=== PATIENT | male | born 1965 | race Hispanic/Latino ===

== ENCOUNTER 2024-02-01 17:52 | Inpatient (IN) | payer BC ==
[~2024-02-01] VITALS: Ht 172.7 cm; Wt 88.0 kg
--- NOTE | 2024-02-01 18:28 | ERN ---
General Chief Complaint: FOOT INJURY/PAIN Stated Complaint: RT FOOT PAIN AND SWELLING Time Seen by MD: 17:56 Time Seen by Midlevel: 17:56 History of Present Illness Initial Comments 58-year-old male presents to the ED for evaluation of right foot pain onset 6 days ago. Patient reports swelling, redness, wound and pus, but denies any other associated symptoms at this time. Patient reports he was seen at [facility] day x6 days ago and was prescribed antibiotics, but states he has not been seeing any improvement. Reports that two months ago he tripped and hurt his toe but did not seek medical help. Denies any recent trauma. Denies fevers Allergies: Coded Allergies: No Known Allergies (Unverified Allergy, Unknown, 02/01/24) Past Medical History Past Medical History: Diabetes-Type II, Hypertension Past Surgical History: Other Surgical History Other: LT TESTICULAR REMOVAL ROS Dictation Constitutional: Negative for fever,chills, and weight loss Eyes: Negative for injury, pain,redness, and discharge ENT: Negative for injury,pain or swelling Cardiovascular: Negative for chest pain, palpitations, and edema Respiratory: Negative for shortness of breath, cough, and wheezing, Abdomen/GI: Negative for abdominal pain, nausea, vomiting, diarrhea, and constipation Back: Negative for injury and pain : Negative for injury, bleeding and discharge MS/Extremity: Positive for right foot pain,swelling, redness, laceration and pus Negative for injury and deformity Skin: Negative for rash, and discoloration Neuro: Negative for headache, weakness, numbness, tingling, and seizure Psych: Negative for suicide ideation, homicidal ideation, and hallucinations Physical Exam Physical Exam Dictation General: awake, alert, NAD Head/Face: Normocephalic, atraumatic Eyes: PERRL, EOMI, vision at baseline ENT: oral cavity clear, TMs clear, no signs of infection Neck: Trachea midline, supple, no nuchal rigidity Cardiovascular: RRR, normal S1/S2, No MRGs, no JVD Respiratory: CTAB, no respiratory distress, No rales or wheezes Abdomen: Soft, non-tender, non-distended, normal bowel sounds, no guarding or rebound. Skin: Warm, dry, normal turgor, no rash erythema noted to right foot, warmth to touch, small 1 cm in diameter diabetic ulcer to tip of 1th toe, scant purulence drainage MS/Extremity: Pulses equal, no cyanosis, neurovascular intact, FROM, right 1st toe deformity, swelling, right lower leg erythema, warmth to touch, cap refill less than 3 seconds Neuro: COAx4, GCS 15, strength 5/5, CN 2-12 intact, normal cerebellar exam, normal gait, Psych: Normal behavior, mood, and affect normal Results Laboratory and Microbiology Lab and Micro Result Laboratory Tests Test 02/01/24 18:32 02/01/24 18:33 Urine Color LIGHT-YELLOW (YELLOW) Urine Appearance CLEAR (CLEAR) Urine pH 6.5 (5.0-8.0) Urine Specific [place] 1.019 (1.001-1.031) Urine Protein NEGATIVE mg/dL (NEGATIVE) Urine Glucose (UA) 50 mg/dL (NEGATIVE) H Urine Ketones NEGATIVE mg/dL (NEGATIVE) Urine Occult Blood NEGATIVE (NEGATIVE) Urine Nitrate NEGATIVE (NEGATIVE) Urine Bilirubin NEGATIVE mg/dL (NEGATIVE) Urine Urobilinogen 3 mg/dL (0.2-1.0) H Urine Leukocyte Esterase NEGATIVE Juliano/uL Urine RBC 0-1 /HPF (0-1) Urine WBC 0-1 /HPF (0-1) Urine Bacteria None /HPF (None Seen) White Blood Count 8.3 K/uL (4.8-10.8) Red Blood Count 4.86 MIL/uL (4.50-6.20) Hemoglobin 15.7 g/dL (14.0-18.0) Hematocrit 45.6 % (42-54) Mean Corpuscular Volume 93.8 fL (79-99) Mean Corpuscular Hemoglobin 32.3 pg (27.0-33.0) Mean Corpuscular Hemoglobin Concent 34.4 g/dL (32.0-36.0) Red Cell Distribution Width 11.8 % (11.0-15.5) Platelet Count 282 K/uL (130-400) Mean Platelet Volume 9.5 fL (7.5-10.5) Immature Granulocyte % (Auto) 0.7 % (0-1) Neutrophils (%) (Auto) 71.4 % (40.0-77.0) Lymphocytes (%) (Auto) 16.1 % (21.0-51.0) L Monocytes (%) (Auto) 7.7 % (3.0-13.0) Eosinophils (%) (Auto) 3.3 % (0.0-8.0) Basophils (%) (Auto) 0.8 % (0.0-5.0) Neutrophils # (Auto) 5.9 K/uL (1.8-7.7) Lymphocytes # (Auto) 1.3 K/uL (1.0-4.8) Monocytes # (Auto) 0.6 K/uL (0.1-1.0) Eosinophils # (Auto) 0.27 K/uL (0.00-0.70) Basophils # (Auto) 0.07 K/uL (0.00-0.20) Absolute Immature Granulocyte (auto 0.06 K/uL (0-1) Nucleated Red Blood Cells 0.0 % (0.0-0.19) Sodium Level 139 mmol/L (136-145) Potassium Level 4.0 mmol/L (3.5-5.1) Chloride Level 100 mmol/L (101-111) L Carbon Dioxide Level 31 mmol/L (21-32) Blood Urea Nitrogen 19 mg/dL (7-18) H Creatinine 1.2 mg/dL (0.5-1.3) Glomerular Filtration Rate Calc 69 mL/min (>90) Random Glucose 166 mg/dL (70-105) H Lactic Acid Level 2.0 mmol/L (0.8-2.5) Total Calcium 9.7 mg/dL (8.5-10.1) Procalcitonin < 0.05 ng/mL (0.05-0.5) L REASON: swelling, cellulits ORDERING PHYSICIAN: ELIUD LOCK PROCEDURE: FT 3VW RT - FOOT COMP 3+VWS RT Exam Type: FOOT COMP 3+VWS RT Clinical Information: swelling, cellulits Comparison: None Findings and impression: Fracture of the distal phalanx proximal aspect with possible intra-articular extension, without displacement. No other abnormalities except for dorsal foot soft tissue swelling. Labs Reviewed?: Yes MDM MDM: 58-year-old male with a history of diabetes on metformin, hypertension presents to the ED for evaluation of right foot pain onset 6 days ago. Patient reports swelling, redness, wound and pus, but denies any other associated symptoms at this time. Patient reports he was seen at [facility] day x6 days ago and was prescribed antibiotics, but states he has not been seeing any improvement. Reports that two months ago he tripped and hurt his toe but did not seek medical help. Denies any recent trauma. Denies fever. CBC showed no leukocytosis, no anemia, chemistry showed mild hyperglycemia, mild hypochloremia, x-ray showed fracture of the distal phalanx proximal aspect with possible intra-articular extension. Due to patient already receiving antibiotics Keflex and Bactrim and not improving, worsening cellulitis patient will be admitted for further management and IV antibiotics. Differential diagnosis: Right foot pain, swelling, cellulitis Comorbidities: Diabetes, hypertension Tests considered and not ordered secondary to shared decision making include: none Previous outside records reviewed: none Risk of complication and/or morbidity or mortality of patient management: The patient meets criteria for admission. Need for emergency major/minor surgery: No There are no social concerns with this patient. I independently interpreted the tests I ordered (labs, urinalysis, etc.). I discussed the case with the hospitalist for admission. Leonela RUVALCABA who accepts admission I discussed the case with the following specialists: none. Historian: pateint. I independently interpreted imaging studies and EKGs that I ordered (US, CT, XR, EKG, etc.). External chart review: none. Medical management and examination interpretation discussions were had by me with other qualified healthcare professionals as indicated for the patient's care. ED Course Orders Procedure Category Date Status Time Cbc With Differential LAB 02/01/24 Complete 18:10 Blood Cult LUPE 02/01/24 In Process 18:10 Urinalysis Profile LAB 02/01/24 Complete 18:10 Zosyn 3.375gm+Ns 50ml PHA 02/01/24 Complete (Zosyn 3.375gm+Ns 18:10 Vancomycin 1g/250ml PHA 02/01/24 Complete Kit (Vancomycin 1g/2 18:30 0.9%Nacl 1000ml (Ns PHA 02/01/24 In Process 1000ml) 18:30 Procalcitonin LAB 02/01/24 Complete 18:10 Lactic Acid LAB 02/01/24 Complete 18:10 Basic Metabolic Panel LAB 02/01/24 Complete 18:10 Foot Comp 3+Vws Rt RAD 02/01/24 Resulted 18:10 Ondansetron 4mg Inj PHA 02/01/24 Complete (Zofran 4mg Inj) 20:00 Morphine 4mg Syg PHA 02/01/24 Complete (Morphine 4mg Syg) 20:00 Admit Orders ADM 02/01/24 Verified 20:32 Edm Admit Bridge Order ADM 02/01/24 Verified 20:32 Current Medications Medications (Trade) Dose Ordered Sig/Adria Route PRN Reason Start Time Stop Time Status Last Admin Dose Admin Morphine Sulfate (morPHINE 4MG SYG) 4 mg ONCE ONCE IVP 02/01/24 20:00 02/01/24 20:01 DC 02/01/24 20:21 Ondansetron HCl (zoFRAN 4MG INJ) 4 mg ONCE ONCE IVP 02/01/24 20:00 02/01/24 20:01 DC 02/01/24 20:21 Piperacillin Sod/ Tazobactam Sod 50 ml @ 200 mls/hr STAT STAT IVPB 02/01/24 18:10 02/01/24 18:24 DC 02/01/24 18:52 Sodium Chloride 2,640 ml @ 880 mls/hr ONCE ONCE IV 02/01/24 18:30 02/01/24 21:29 02/01/24 18:53 Vancomycin HCl 250 ml @ 125 mls/hr ONCE ONCE IV 02/01/24 18:30 02/01/24 20:29 DC 02/01/24 19:22 Vital Signs Date Time Temp Pulse Resp B/P (MAP) Pulse Ox O2 Delivery O2 Flow Rate FiO2 02/01/24 19:52 98.4 70 18 151/70 98 Room Air* 0 02/01/24 18:36 98.8 78 18 128/78 96 Room Air* 0 02/01/24 17:55 98.4 76 20 133/75 96 Room Air DX & DISP Disposition: Inpatient Decision to Admit Date: Feb 01, 2024 Decision to Admit Time: 20:35 Departure Impression: Primary Impression: Cellulitis of right foot Additional Impressions: Diabetic ulcer of toe of right foot, Toe fracture, right, Failure of outpatient treatment Condition: Stable I have reviewed, & agreed with my scribe's, documentation. (Entered by Aureliano Osorio, acting as a scribe for CLEVELAND Lock) I have reviewed the case, and I agree with, Diagnosis and Plan I personally scribed for ELIUD LOCK ([email or web address]) on 02/01/24 at 18:28. Electronically submitted by Aureliano Osorio ([email or web address]). ELIUD LOCK Feb 01, 2024 18:28
--- NOTE | 2024-02-01 18:47 | HMCIMG ---
Exam Type: FOOT COMP 3+VWS RT Clinical Information: swelling, cellulits Comparison: None Findings and impression: Fracture of the distal phalanx proximal aspect with possible intra-articular extension, without displacement. No other abnormalities except for dorsal foot soft tissue swelling.
[2024-02-01] MEDS: ZOSYN 3.375GM+NS 50ML 50 ML IVPB STA (18:52)
[2024-02-01] MEDS: [UNRECOGNIZED DRUG - OTHER] IV ONE (18:53)
[2024-02-01] MEDS: VANCOMYCIN 1G/250ML KIT 250 ML IV ONE (19:22)
[2024-02-01 19:25] LABS: CREATININE 1.2 mg/dL (0.5-1.3)
[2024-02-01 19:30] LABS: BASOPHILS # (AUTO) 0.07 K/uL (0.00-0.20); BASOPHILS % (AUTO) 0.8 % (0.0-5.0); EOSINOPHILS # (AUTO) 0.27 K/uL (0.00-0.70); EOSINOPHILS % (AUTO) 3.3 % (0.0-8.0); HEMATOCRIT 45.6 % (42-54); IMMATURE GRANULOCYTE ABSOLUTE 0.06 K/uL (0-1); LYMPHOCYTES # (AUTO) 1.3 K/uL (1.0-4.8); LYMPHOCYTES % (AUTO) 16.1 % (21.0-51.0); MEAN CORPUSCULAR HEMOGLOBIN 32.3 pg (27.0-33.0); MEAN CORPUSCULAR HGB CONC 34.4 g/dL (32.0-36.0); MEAN CORPUSCULAR VOLUME 93.8 fL (79-99); MONOCYTES # (AUTO) 0.6 K/uL (0.1-1.0); MONOCYTES % (AUTO) 7.7 % (3.0-13.0); NEUTROPHILS # (AUTO) 5.9 K/uL (1.8-7.7); NEUTROPHILS % (AUTO) 71.4 % (40.0-77.0); PLATELET COUNT (AUTO) 282 K/uL (130-400); RED BLOOD CELL COUNT(AUTO) 4.86 MIL/uL (4.50-6.20); RED CELL DISTRIBUTION WIDTH 11.8 % (11.0-15.5); WHITE BLOOD COUNT (AUTO) 8.3 K/uL (4.8-10.8)
[2024-02-01 19:30] LABS: APPEARANCE,URINE CLEAR (CLEAR); BILIRUBIN,URINE NEGATIVE (NEGATIVE); COLOR,URINE LIGHT-YELLOW (YELLOW); GLUCOSE, URINE (UA) 50 mg/dL (NEGATIVE); KETONES,URINE NEGATIVE (NEGATIVE); LEUKOCYTE ESTERASE ,URINE NEGATIVE Leu/uL (NEGATIVE); NITRATE,URINE NEGATIVE (NEGATIVE); OCCULT BLOOD,URINE NEGATIVE (NEGATIVE); PH,URINE 6.5 (5.0-8.0); PROTEIN,URINE NEGATIVE (NEGATIVE); UROBILINOGEN,URINE 3 mg/dL (0.2-1.0)
[2024-02-01 19:31] LABS: ADD UA MICROSCOPIC YES
[2024-02-01 19:39] LABS: MUCUS,URINE RARE LPF (None Seen); RBC,URINE 0-1 /HPF (0-1); WBC,URINE 0-1 /HPF (0-1)
[2024-02-01] MEDS: ondanSETRON 4MG INJ IVP ONE (20:21)
[2024-02-01] MEDS: morPHINE 4 MG SYG IVP ONE (20:21)
[2024-02-01] MEDS: VANCOMYCIN 1G/250ML KIT 250 ML IV SCH (21:00)
[2024-02-01] MEDS ORDERED: VANCOMYCIN PROTOCOL PER PHARMACY IV SCH (21:00)
[2024-02-01] MEDS: INSULIN humuLIN R 100 UNIT/ML 3ML SQ SCH (21:00)
[2024-02-01] MEDS ORDERED: TEMAZepam 15 MG CAPSULE PO PRN (21:00)
[2024-02-01] MEDS ORDERED: acetaMINOPHEN 325 MG TAB PO PRN (21:00)
[2024-02-01] MEDS ORDERED: hydrALAZine 20MG/ML VIAL IV PRN (21:00)
[2024-02-01] MEDS ORDERED: acetaMINOPHEN 650 MG SUPPOSITORY RC PRN (21:00)
[2024-02-01] MEDS ORDERED: LACTULOSE 20 GM/30 ML UDCUP PO PRN (21:00)
[2024-02-01] MEDS ORDERED: ondanSETRON 4MG INJ IVP PRN (21:00)
[2024-02-01] MEDS ORDERED: HYDROcodone/APAP 5/325 1 TAB TABLET PO PRN (21:00)
--- NOTE | 2024-02-01 21:11 | HP ---
[facility] HISTORY AND PHYSICAL Date of Service: Feb 01, 2024 Time of Service: 21:11 PCP: Dr. Karan Valencia Attending/supervising physicians: Dr. Vail and Dr. Scott Cross HISTORY OF PRESENT ILLNESS: Mr. Callahan is a 58-year-old male who presented to [facility] ED for evaluation of right foot pain onset 6 days ago. Patient reported swelling, redness, wound and pus, but denies any other associated symptoms at this time. Patient reported he was seen at [facility] day x6 days ago and was prescribed antibiotics, but states he has not been seeing any improvement. The patient reported that two months ago he tripped and hurt his toe but did not seek medical help. Denies any recent trauma, fevers, any other problem or concern. Right foot x-ray: Fracture of the distal phalanx proximal aspect with possible intra-articular extension, without displacement. No other abnormalities except for dorsal foot soft tissue swelling. ED provider request patient be admitted with the diagnosis of cellulitis to right foot with failed of outpatient treatment, diabetes ulcers of right toe, right toe fracture. The patient was seen by me in room number ED nine. Patient appeared comfortable in no distress. I informed patient of labs, diagnostics, plan of care. Patient verbalized understanding and is in agreement with the plan. Plan and assessment are listed below. REVIEW OF SYSTEMS 12-point ROS reviewed with the patient. All pertinent positives mentioned above. Otherwise negative, non-pertinent, or noncontributory. PAST MEDICAL HISTORY: Diabetes mellitus type and hypertension PAST SURGICAL HISTORY: Left testicle removal PAST SOCIAL HISTORY: Denied: Alcohol, EtOH, illicit drug use. FAMILY HISTORY: Noncontributory Coded Allergies: No Known Allergies (Unverified Allergy, Unknown, 02/01/24) PHYSICAL EXAM GENERAL APPEARANCE: The patient is awake, alert, and oriented, in no acute cardiopulmonary distress. NEUROLOGICAL: Cranial nerves II-XII grossly intact. Motor is 5/5 in bilateral upper and lower extremities proximal to distal. No sensory deficits. HEENT: Face is symmetric. Pupils are equal and reactive. Extraocular movements are intact. NECK: Supple. No JVD. No thyromegaly. No submental, submandibular, pre- /postauricular, occipital or supraclavicular lymphadenopathy. CHEST: Normal chest expansion. No Telemetry. LUNGS: Absence of any rales, rhonchi or any wheezing. CARDIOVASCULAR: Regular. S1 and S2 normal. No appreciable rubs, murmurs or gallops. ABDOMEN: Soft, nontender, and nondistended. There is no rebound, voluntary guarding, or rigidity. : Deferred. No Obrien. EXTREMITIES: Non-edematous and not cyanotic. No clubbing. Good capillary refill. Right toe has small amount of yellowish discharge. SKIN: No skin breakdown. Lower leg and foot edema and erythema. Vital Sign (Last 24 Hours) 02/01/24 19:52 Temp 98.4 Pulse 70 Resp 18 B/P (MAP) 151/70 Pulse Ox 98 O2 Delivery Room Air* O2 Flow Rate 0 FiO2 21 LABS: Laboratory: Test 02/01/24 18:33 02/01/24 18:32 Range/Units White Blood Count 8.3 4.8-10.8 K/uL Red Blood Count 4.86 4.50-6.20 MIL/uL Hemoglobin 15.7 14.0-18.0 g/dL Hematocrit 45.6 42-54 % Mean Corpuscular Volume 93.8 79-99 fL Mean Corpuscular Hemoglobin 32.3 27.0-33.0 pg Mean Corpuscular Hemoglobin Concent 34.4 32.0-36.0 g/dL Red Cell Distribution Width 11.8 11.0-15.5 % Platelet Count 282 130-400 K/uL Mean Platelet Volume 9.5 7.5-10.5 fL Immature Granulocyte % (Auto) 0.7 0-1 % Neutrophils (%) (Auto) 71.4 40.0-77.0 % Lymphocytes (%) (Auto) 16.1 L 21.0-51.0 % Monocytes (%) (Auto) 7.7 3.0-13.0 % Eosinophils (%) (Auto) 3.3 0.0-8.0 % Basophils (%) (Auto) 0.8 0.0-5.0 % Neutrophils # (Auto) 5.9 1.8-7.7 K/uL Lymphocytes # (Auto) 1.3 1.0-4.8 K/uL Monocytes # (Auto) 0.6 0.1-1.0 K/uL Eosinophils # (Auto) 0.27 0.00-0.70 K/uL Basophils # (Auto) 0.07 0.00-0.20 K/uL Absolute Immature Granulocyte (auto 0.06 0-1 K/uL Nucleated Red Blood Cells 0.0 0.0-0.19 % Sodium Level 139 136-145 mmol/L Potassium Level 4.0 3.5-5.1 mmol/L Chloride Level 100 L 101-111 mmol/L Carbon Dioxide Level 31 21-32 mmol/L Blood Urea Nitrogen 19 H 7-18 mg/dL Creatinine 1.2 0.5-1.3 mg/dL Glomerular Filtration Rate Calc 69 >90 mL/min Random Glucose 166 H 70-105 mg/dL Lactic Acid Level 2.0 0.8-2.5 mmol/L Total Calcium 9.7 8.5-10.1 mg/dL Procalcitonin < 0.05 L 0.05-0.5 ng/mL Urine Color LIGHT-YELLOW YELLOW Urine Appearance CLEAR CLEAR Urine pH 6.5 5.0-8.0 Urine Specific [place] 1.019 1.001-1.031 Urine Protein NEGATIVE NEGATIVE mg/dL Urine Glucose (UA) 50 H NEGATIVE mg/dL Urine Ketones NEGATIVE NEGATIVE mg/dL Urine Occult Blood NEGATIVE NEGATIVE Urine Nitrate NEGATIVE NEGATIVE Urine Bilirubin NEGATIVE NEGATIVE mg/dL Urine Urobilinogen 3 H 0.2-1.0 mg/dL Urine Leukocyte Esterase NEGATIVE NEGATIVE Juliano/uL Urine RBC 0-1 0-1 /HPF Urine WBC 0-1 0-1 /HPF Urine Bacteria None None Seen /HPF Current Medications Medications (Trade) Dose Ordered Sig/Adria Route PRN Reason Start Time Stop Time Status Last Admin Dose Admin Acetaminophen (TYLenol 325MG TAB) 650 mg Q6H PRN PO FEVER/MILD PAIN LEVEL 1-3 02/01/24 21:00 03/02/24 20:59 Acetaminophen (TYLenol 650MG SUPPOSITORY) 650 mg Q6H PRN RC FEVER / MILD PAIN 1-3 IF NPO 02/01/24 21:00 03/02/24 20:59 Acetaminophen/ Hydrocodone Bitart (NORco 5/325MG) 1 tab Q6H PRN PO MILD PAIN (1-3) 02/01/24 21:00 02/06/24 20:59 Cefepime HCl (MAXipime 1 GM vial) 1 gm Q8H IVPB 02/02/24 03:00 02/12/24 02:59 Docusate Sodium (COLace 100MG CAP) 100 mg BID PRN PO c 02/01/24 21:00 03/02/24 20:59 Enoxaparin Sodium (Lovenox) 40 mg DAILY SQ 02/02/24 09:00 03/03/24 08:59 Hydralazine HCl (APRESOLine 20MG INJ) 10 mg Q2H PRN IV SBP GREATER THAN 160 02/01/24 21:00 03/02/24 20:59 Insulin Human Regular (humuLIN R 100 UNIT/ML 3ML) INSULIN SLIDING SCAL... ACHS SQ 02/01/24 21:00 03/02/24 20:59 Lactulose (Constulose 20gm/ 30ml Udcup) 20 gm Q6H PRN PO CONSTIPATION 02/01/24 21:00 03/02/24 20:59 Ondansetron HCl (zoFRAN 4MG INJ) 4 mg Q6H PRN IVP NAUSEA/VOMITING 02/01/24 21:00 03/02/24 20:59 Piperacillin Sod/ Tazobactam Sod 50 ml @ 200 mls/hr STAT STAT IVPB 02/01/24 18:10 02/01/24 18:24 DC 02/01/24 18:52 200 MLS/HR Temazepam (restORIL 15 MG CAP) 15 mg HS PRN PO INSOMNIA/SLEEP 02/01/24 21:00 03/02/24 20:59 Vancomycin HCl 250 ml @ 125 mls/hr Q12H IV 02/01/24 21:00 02/11/24 20:59 Vancomycin HCl (Vancomycin Protocol) 1 each AD IV 02/01/24 21:00 02/15/24 20:59 DIAGNOSTICS / RADIOLOGY: [ ] ASSESSMENT: Cellulitis of right foot and right lower extremity, with failed outpatient antibiotic therapy, POA Right toe decubitus ulcer/cellulitis, POA Fracture of the distal phalanx proximal aspect with possible intra-articular extension Acute dehydration, POA Acute kidney injury, GFR 69 Diabetes mellitus with hyperglycemia Uncontrolled hypertension Chronic problem list: Diabetes mellitus type 2, hypertension, left testicular removal PLAN: Admit patient to surgical floor. P.r.n. for: Pain management, nausea, vomiting, constipation, hypertension Collect anaerobic and aerobic cultures from right toe. Start vancomycin IV and cefepime IV. Vancomycin IV per pharmacy protocol. Monitor for fevers. Follow WBCs and cultures. Antibiotic therapy tailored to culture results. Deescalate antibiotics once appropriate. Monitor renal and liver function. Monitor electrolytes and treat accordingly. DVT and GI prophylaxis. Reconciled patient's home medication once available. A.m. labs: CBC, BMP, Mag, phos, TSH, A1c ADVANCED CARE PLANNING 1. Which of the following were discussed? Hospice Care - No Therapeutic options - No Advance Directives - No Other discussions - 2. Discussed with who? Patient 3. Voluntary nature of this service was explained to the patient? Yes 4. Amount of time spent - ____ more than 35 minutes ___ 5. Reviewed by Physician? (if this service was performed by NPP) Yes Patient seen and examined by me. Agree with note by ERP SPECIALIST SEE ADDITIONAL ORDERS PER CHART DISCUSSED WITH NURSING STAFF KESHAWN GARRIDO AGRICULTURAL ENGINEERING TECHNICIAN Feb 01, 2024 21:11
--- NOTE | 2024-02-01 22:56 | NUR ---
THOMAS SRINIVASAN PERFORMANCE MAKEUP ARTIST AT BEDSIDE TO EVALUATE PATIENT
--- NOTE | 2024-02-01 22:57 | NUR ---
REPORT GIVEN TO DEMETRIO CURRY
[2024-02-01 23:15] VITALS: BP 153/70; PULSE 63; RESP 16; TEMP 98.1
[2024-02-01 23:50] VITALS: O2SAT 96
[2024-02-01] MEDS ORDERED: OMEP20CA12 PO (23:53)
[2024-02-01] MEDS ORDERED: SITA25TA5 PO (23:53)
[2024-02-01] MEDS ORDERED: HYDR12.54 PO (23:53)
[2024-02-01] MEDS ORDERED: METF-445 PO (23:53)
[2024-02-01] MEDS ORDERED: LISI40TA9 PO (23:53)
[2024-02-02] VITALS (9 sets, daily range): BP systolic 110–167; BP diastolic 72–86; PULSE 51–71; RESP 16–18; TEMP 98.1–98.6; O2SAT 96–97
--- NOTE | 2024-02-02 | NUR ---
WOUND CULTURES COLLECTED AND SENT TO LAB AT THIS TIME. Addendum: 02/02/24 at 0045 by DEMETRIO PRUITT RN RN Amended: Links added.
[2024-02-02] MEDS: ceFEPime HCL 1 GM VIAL IVPB SCH (02:50)
[2024-02-02 04:52] LABS: BASOPHILS # (AUTO) 0.05 K/uL (0.00-0.20); BASOPHILS % (AUTO) 0.7 % (0.0-5.0); EOSINOPHILS # (AUTO) 0.26 K/uL (0.00-0.70); EOSINOPHILS % (AUTO) 3.9 % (0.0-8.0); HEMATOCRIT 37.8 % (42-54); IMMATURE GRANULOCYTE ABSOLUTE 0.04 K/uL (0-1); LYMPHOCYTES # (AUTO) 1.5 K/uL (1.0-4.8); LYMPHOCYTES % (AUTO) 21.8 % (21.0-51.0); MEAN CORPUSCULAR HEMOGLOBIN 32.2 pg (27.0-33.0); MEAN CORPUSCULAR HGB CONC 34.7 g/dL (32.0-36.0); MEAN CORPUSCULAR VOLUME 92.9 fL (79-99); MONOCYTES # (AUTO) 0.6 K/uL (0.1-1.0); MONOCYTES % (AUTO) 8.8 % (3.0-13.0); NEUTROPHILS # (AUTO) 4.3 K/uL (1.8-7.7); NEUTROPHILS % (AUTO) 64.2 % (40.0-77.0); PLATELET COUNT (AUTO) 240 K/uL (130-400); RED BLOOD CELL COUNT(AUTO) 4.07 MIL/uL (4.50-6.20); RED CELL DISTRIBUTION WIDTH 11.7 % (11.0-15.5); WHITE BLOOD COUNT (AUTO) 6.7 K/uL (4.8-10.8)
[2024-02-02 05:21] LABS: CREATININE 0.9 mg/dL (0.5-1.3); MAGNESIUM 1.7 mg/dL (1.80-2.40); PHOSPHORUS 3.1 mg/dL (2.5-4.9); POTASSIUM 3.6 mmol/L (3.5-5.1); THYROID STIMULATING HORMONE 7.5 uIU/mL (0.36-3.74)
[2024-02-02] MEDS: ENOXAPARIN SODIUM 40 MG/0.4 ML SYRINGE SQ SCH (08:11)
--- NOTE | 2024-02-02 10:14 | CONS ---
HISTORY OF PRESENT ILLNESS: The patient is a very pleasant 58-year-old diabetic, Latin-Polish male who is followed up for a fracture to his right great toe. He states he injured his foot approximately 2 months ago, did not seek attention at that time. Apparently last week, he was at [facility], given outpatient antibiotics and his condition did not improve. He has had x-rays that have showed a fracture with intraarticular involvement to the base of the distal phalanx of the right great toe. He is without any complaints of pain. He is remaining afebrile, blood pressure 110/80. He has a white count of 6.7, H and H 13.1 and 37.8, platelets 240. Blood glucose 143. PAST MEDICAL HISTORY: Diabetes, hypertension, peripheral vascular disease, peripheral neuropathy. PRIMARY CARE PHYSICIAN: Dr. Valencia from [facility]. PAST SURGICAL HISTORY: Left testicle removal. SOCIAL HISTORY: Does not smoke, drink or use any drugs. FAMILY HISTORY: Unknown. ALLERGIES: No known drug allergies. REVIEW OF SYSTEMS: CONSTITUTIONAL: No chills, no fevers, no night sweats, no nausea, vomiting, no diarrhea. HEENT: No problems with eyes, ears, nose or throat. CARDIOVASCULAR: Having no current chest pain. Suspected peripheral vascular disease. GENITOURINARY: No dysuria. GASTROINTESTINAL: No dysphagia. ENDOCRINE: Diabetes. PSYCHIATRIC: Denied any depression. MUSCULOSKELETAL: He has bunions and hammertoe deformities. INTEGUMENT: He has onychomycosis, onychogryphosis and now cellulitis of the right great toe and ulceration to the plantar aspect of the right great toe, ingrown toenail to the right great toe along the medial border. PHYSICAL EXAMINATION: Today palpable anterior tibial pulses, nonpalpable posterior tibial pulses feet bilaterally. DIAGNOSTIC STUDIES: X-rays show fracture of the distal phalanx base intraarticular involvement to the right great toe, calcification of the anterior tibial and posterior tibial arteries noted radiographically. Elongated thickened, brittle, gryphotic toenails x 10 with subungual debris ingrown toenail, medial border of the right great toe, ulceration of plantar aspect of the right great toe, predebridement 8 x 5 x 1 mm and postdebridement 15 x 10 x 4 mm. ASSESSMENT: Diabetes, peripheral vascular disease, peripheral neuropathy, onychomycosis, onychogryphosis, fracture of right great toe with intraarticular involvement of the distal phalanx, infected ulcer to the plantar aspect of the right great toe and infected ingrown toenail to the right hallux along the medial border. PLAN: With the patient's consent signed, I blocked the right first toe with 3 mL of 1% lidocaine plain. I avulsed the ingrown toenail, medial border by the Betadine dressing. I then, with the patient's consent, debrided the infected ulcer to the plantar aspect of the right great toe interphalangeal joint area. I debrided slough, fibrin, necrotic fibrin, dysvascular-appearing skin, and subcutaneous tissues down to including level of the subcutaneous tissue in an area that measured postdebridement 10 x 15 x 4 mm for a total area of sharp excisional debridement of 1.5 cm2. Hemostasis with Lumicain, dressed with Betadine dressings and Hydrofera Blue. I will order postop shoe for the patient to ambulate with. He tolerated the debridement well and had no pain. Cultures were taken of the wounds. The patient is currently receiving IV cefepime and IV vancomycin. We will order arterial Doppler studies to assess his healing potential. We will order an MRI to evaluate the patient with possibility of osteomyelitis. Continue with the vancomycin in the IV. Await the results of the MRI, await the results of the arterial Doppler studies, await the results of his intraoperative cultures and sensitivities. I then debrided his toenails today extensively reducing the length and girth to pink, healthy tissue with a nail clipper and dermal curette x 10 without incidence. We will continue to follow the patient closely while in-house. TID: [id number] RECEIPT: [id number]
[2024-02-02] MEDS ORDERED: PoTASSium chloRIDE 20MEQ/100ML 100 ML IV PRN (11:00)
[2024-02-02] MEDS ORDERED: PoTASSium chl 10% ELIXIR 20MEQ 20 MEQ/15 ML UDCUP PO PRN (11:00)
[2024-02-02] MEDS: PoTASSium chloRIDE 20MEQ ER 20 MEQ ERTAB PO PRN (11:33)
[2024-02-02] MEDS: MAGNESIUM 2GM PREMIX 50ML 50 ML IV PRN (13:29)
--- NOTE | 2024-02-02 13:39 | HMCIMG ---
Exam Type: MR FOOT RIGHT WO Clinical Information: RULE OUT OSTEOMYELITIS Comparison: None Technique: Multiecho multiplanar sequences are done without contrast administration. FINDINGS: There is high signal intensity of the marrow of the distal phalanx of the first of consistent with osteomyelitis. No other areas of marrow edema are seen. There are no fractures. There are no areas of bone destruction elsewhere. Soft tissue evaluation demonstrates increased fluid consistent with cellulitis or swelling. No fluid collections are noted to suggest abscess formation. IMPRESSION: Findings consistent with osteomyelitis of the distal phalanx of the first toe.
[2024-02-02] MEDS: LISINOPRIL 40 MG TABLET PO SCH (13:51)
--- NOTE | 2024-02-02 13:53 | PN ---
[facility] PROGRESS NOTE Date of Service: Feb 02, 2024 Time of Service: 13:49 SUBJECTIVE: [ Edvin Callahan is a 58-year-old male who approximately two months ago tripped and traumatizes right great toe. He did not seek medical attention at the time. Over the past week he noticed increased redness and some pus coming out of his right great toenail and so he sought medical attention here [place] [facility] [place]. He is a diabetic who does not know what his blood sugars are A1c usually run. The nurse mentioned that his last sugar checked was [address] Kaiser the orthopedic coder has already been by and evaluated the patient and dressed his foot an MRI has been ordered and done. REVIEW OF SYSTEMS 12-point ROS reviewed with the patient. All pertinent positives mentioned above. Otherwise negative, non-pertinent, or noncontributory. PHYSICAL EXAM GENERAL APPEARANCE: The patient is awake, alert, and oriented, in no acute cardiopulmonary distress. NEUROLOGICAL: Cranial nerves II-XII grossly intact. Motor is 5/5 in bilateral upper and lower extremities proximal to distal. No sensory deficits. HEENT: Face is symmetric. Pupils are equal and reactive. Extraocular movements are intact. NECK: Supple. No JVD. No thyromegaly. No submental, submandibular, pre- /postauricular, occipital or supraclavicular lymphadenopathy. CHEST: Normal chest expansion. No Telemetry. LUNGS: Absence of any rales, rhonchi or any wheezing. CARDIOVASCULAR: Regular. S1 and S2 normal. No appreciable rubs, murmurs or gallops. ABDOMEN: Soft, nontender, and nondistended. There is no rebound, voluntary guarding, or rigidity. : Deferred. No Obrien. EXTREMITIES: Non-edematous and not cyanotic. No clubbing. Good capillary refill. Right toe and foot is wrapped in both Vaseline gauze dressing and then an external dry Mainor bandage. SKIN: No skin breakdown. Lower leg and foot edema and erythema. Vital Signs (last 8hr) Date Time Temp Pulse Resp B/P (MAP) Pulse Ox O2 Delivery O2 Flow Rate FiO2 02/02/24 08:47 110/80 LABS: Laboratory: Test 02/02/24 12:16 02/02/24 04:23 02/01/24 18:33 11/22/24 18:32 Range/Units Whole Blood Glucose 225 #H 70-110 MG/DL White Blood Count 6.7 4.8-10.8 K/uL Red Blood Count 4.07 L 4.50-6.20 MIL/uL Hemoglobin 13.1 L 14.0-18.0 g/dL Hematocrit 37.8 L 42-54 % Mean Corpuscular Volume 92.9 79-99 fL Mean Corpuscular Hemoglobin 32.2 27.0-33.0 pg Mean Corpuscular Hemoglobin Concent 34.7 32.0-36.0 g/dL Red Cell Distribution Width 11.7 11.0-15.5 % Platelet Count 240 130-400 K/uL Mean Platelet Volume 9.8 7.5-10.5 fL Immature Granulocyte % (Auto) 0.6 0-1 % Neutrophils (%) (Auto) 64.2 40.0-77.0 % Lymphocytes (%) (Auto) 21.8 21.0-51.0 % Monocytes (%) (Auto) 8.8 3.0-13.0 % Eosinophils (%) (Auto) 3.9 0.0-8.0 % Basophils (%) (Auto) 0.7 0.0-5.0 % Neutrophils # (Auto) 4.3 1.8-7.7 K/uL Lymphocytes # (Auto) 1.5 1.0-4.8 K/uL Monocytes # (Auto) 0.6 0.1-1.0 K/uL Eosinophils # (Auto) 0.26 0.00-0.70 K/uL Basophils # (Auto) 0.05 0.00-0.20 K/uL Absolute Immature Granulocyte (auto 0.04 0-1 K/uL Nucleated Red Blood Cells 0.0 0.0-0.19 % Sodium Level 138 136-145 mmol/L Potassium Level 3.6 3.5-5.1 mmol/L Chloride Level 104 101-111 mmol/L Carbon Dioxide Level 27 21-32 mmol/L Blood Urea Nitrogen 18 7-18 mg/dL Creatinine 0.9 0.5-1.3 mg/dL Glomerular Filtration Rate Calc 98 >90 mL/min Random Glucose 149 H 70-105 mg/dL Total Calcium 8.5 8.5-10.1 mg/dL Phosphorus Level 3.1 2.5-4.9 mg/dL Magnesium Level 1.70 L 1.80-2.40 mg/dL Thyroid Stimulating Hormone (TSH) 7.50 H 0.36-3.74 uIU/mL Lactic Acid Level 2.0 0.8-2.5 mmol/L Procalcitonin < 0.05 L 0.05-0.5 ng/mL Urine Color LIGHT-YELLOW YELLOW Urine Appearance CLEAR CLEAR Urine pH 6.5 5.0-8.0 Urine Specific [place] 1.019 1.001-1.031 Urine Protein NEGATIVE NEGATIVE mg/dL Urine Glucose (UA) 50 H NEGATIVE mg/dL Urine Ketones NEGATIVE NEGATIVE mg/dL Urine Occult Blood NEGATIVE NEGATIVE Urine Nitrate NEGATIVE NEGATIVE Urine Bilirubin NEGATIVE NEGATIVE mg/dL Urine Urobilinogen 3 H 0.2-1.0 mg/dL Urine Leukocyte Esterase NEGATIVE NEGATIVE Juliano/uL Urine RBC 0-1 0-1 /HPF Urine WBC 0-1 0-1 /HPF Urine Bacteria None None Seen /HPF Current Medications Medications (Trade) Dose Ordered Sig/Adria Route PRN Reason Start Time Stop Time Status Last Admin Dose Admin Acetaminophen (TYLenol 325MG TAB) 650 mg Q6H PRN PO FEVER/MILD PAIN LEVEL 1-3 02/01/24 21:00 03/02/24 20:59 Acetaminophen (TYLenol 650MG SUPPOSITORY) 650 mg Q6H PRN RC FEVER / MILD PAIN 1-3 IF NPO 02/01/24 21:00 03/02/24 20:59 Acetaminophen/ Hydrocodone Bitart (NORco 5/325MG) 1 tab Q6H PRN PO MILD PAIN (1-3) 02/01/24 21:00 02/06/24 20:59 Cefepime HCl (MAXipime 1 GM vial) 1 gm Q8H IVPB 02/02/24 03:00 02/12/24 02:59 02/02/24 11:32 1 GM Docusate Sodium (COLace 100MG CAP) 100 mg BID PRN PO c 02/01/24 21:00 03/02/24 20:59 Enoxaparin Sodium (Lovenox) 40 mg DAILY SQ 02/02/24 09:00 03/03/24 08:59 Hydralazine HCl (APRESOLine 20MG INJ) 10 mg Q2H PRN IV SBP GREATER THAN 160 02/01/24 21:00 03/02/24 20:59 Hydrochlorothiazide (hydroCHLOROthiazide 25MG) 12.5 mg DAILY PO 02/03/24 09:00 03/04/24 08:59 Insulin Human Regular (humuLIN R 100 UNIT/ML 3ML) INSULIN SLIDING SCAL... ACHS SQ 02/01/24 21:00 03/02/24 20:59 02/02/24 13:34 6 UNIT Lactulose (Constulose 20gm/ 30ml Udcup) 20 gm Q6H PRN PO CONSTIPATION 02/01/24 21:00 03/02/24 20:59 Linagliptin (TradJENTA) 5 mg DAILY PO 02/03/24 09:00 03/04/24 08:59 Lisinopril (Prinivil 40mg) 40 mg DAILY PO 02/02/24 14:00 03/03/24 13:59 Magnesium Sulfate 50 ml @ 0 mls/hr PROTOCOL PRN IV MAGNESIUM PROTOCOL 02/02/24 11:00 03/03/24 10:59 02/02/24 13:29 25 MLS/HR Miscellaneous Medication (Omeprazole ) 20 mg DAILY PO 02/03/24 09:00 03/04/24 08:59 UNV Ondansetron HCl (zoFRAN 4MG INJ) 4 mg Q6H PRN IVP NAUSEA/VOMITING 02/01/24 21:00 03/02/24 20:59 Piperacillin Sod/ Tazobactam Sod 50 ml @ 200 mls/hr STAT STAT IVPB 02/01/24 18:10 02/01/24 18:24 DC 02/01/24 18:52 200 MLS/HR Potassium Chloride 100 ml @ 100 mls/hr AD PRN IV POTASSIUM PROTOCOL 02/02/24 11:00 03/03/24 10:59 Potassium Chloride (K-Dur/Klor-Con 20meq) 20 meq AD PRN PO POTASSIUM PROTOCOL 02/02/24 11:00 03/03/24 10:59 02/02/24 13:29 20 MEQ Potassium Chloride (KCl 10% Elixir 20meq/15ml) 20 meq AD PRN PO POTASSIUM PROTOCOL 02/02/24 11:00 03/03/24 10:59 Temazepam (restORIL 15 MG CAP) 15 mg HS PRN PO INSOMNIA/SLEEP 02/01/24 21:00 03/02/24 20:59 Vancomycin HCl 250 ml @ 125 mls/hr Q12H IV 02/01/24 21:00 02/11/24 20:59 02/02/24 08:46 125 MLS/HR Vancomycin HCl (Vancomycin Protocol) 1 each AD IV 02/01/24 21:00 02/15/24 20:59 DIAGNOSTICS / RADIOLOGY: [ ] ASSESSMENT: Cellulitis of right foot and right lower extremity, with failed outpatient antibiotic therapy, POA Right toe diabetic foot ulcer/cellulitis, POA Fracture of the distal phalanx proximal aspect with possible intra-articular extension Acute dehydration, POA Acute kidney injury, GFR 69 Diabetes mellitus with hyperglycemia Uncontrolled hypertension Chronic problem list: Diabetes mellitus type 2, hypertension, left testicular removal PLAN: Admit patient to surgical floor. P.r.n. for: Pain management, nausea, vomiting, constipation, hypertension Collect anaerobic and aerobic cultures from right toe. Start vancomycin IV and cefepime IV. Vancomycin IV per pharmacy protocol. Deescalate antibiotics once appropriate. Monitor renal and liver function. Monitor electrolytes and treat accordingly. DVT and GI prophylaxis. Reconciled patient's home medication once available. A.m. labs: CBC, BMP, mg in am. checking a1c in am as well. SANTIAGO MATOS MD Feb 02, 2024 13:53
--- NOTE | 2024-02-02 17:00 | NUR ---
MET W PATIENT FOR DC PLANNING. PLT IS INDEPENDENT, EMPLOYED, DRIVES, NO DME OR SERVICES, HAS GLUCOMETER, HAS HAD DIABETES FOR MANY YEARS, FIRST TIME WITH DIABETIC FOOT WOUND. PATIENT TEACHING DONE RE DIABETIC FOOT ULCERS/ OSTEO/ STANDARD PLAN OF CARE FOR OSTEO. PENDING RESULTS FOR MRI. PLAN MAY BE HOME WITH OUTPATIENT ABX AND WOUND CARE BY SELF OR WOUND HEALING CENTER CM WILL ANTICIPATE FURTHER DC ORDERS FOR THIS PATIENT
--- NOTE | 2024-02-02 20:53 | HMCIMG ---
US ARTERIAL BILAT LOW EXT DUPL HISTORY: PVD TECHNIQUE: Real-time arterial doppler ultrasound of the lower extremity was performed using B mode, color flow and spectral analysis. FINDINGS: RIGHT: Abnormal monophasic waveform seen in the posterior tibial and anterior tibial arteries. Occluded dorsalis pedis artery. The remaining arteries demonstrate biphasic and triphasic waveforms. LEFT: Abnormal monophasic waveform seen in the anterior tibial and dorsalis pedis arteries suggesting proximal flow-limiting stenosis. The remaining arteries demonstrate normal biphasic and triphasic waveforms. IMPRESSION: RIGHT: Abnormal monophasic waveform seen in the posterior tibial and anterior tibial arteries. Occluded dorsalis pedis artery. The remaining arteries demonstrate biphasic and triphasic waveforms. LEFT: Abnormal monophasic waveform seen in the anterior tibial and dorsalis pedis arteries suggesting proximal flow-limiting stenosis. The remaining arteries demonstrate normal biphasic and triphasic waveforms.
[2024-02-03 04:00] VITALS: BP 131/71; PULSE 58; RESP 16; TEMP 98.5
[2024-02-03 04:24] LABS: HEMATOCRIT 39.1 % (42-54); MEAN CORPUSCULAR HEMOGLOBIN 32.6 pg (27.0-33.0); MEAN CORPUSCULAR VOLUME 93.1 fL (79-99); RED BLOOD CELL COUNT(AUTO) 4.2 MIL/uL (4.50-6.20); RED CELL DISTRIBUTION WIDTH 11.5 % (11.0-15.5)
[2024-02-03 04:43] LABS: ALBUMIN 3.3 g/dL (3.5-5.0); BILIRUBIN,TOTAL 0.6 mg/dL (0.2-1.0); CREATININE 0.9 mg/dL (0.5-1.3); POTASSIUM 3.9 mmol/L (3.5-5.1); TOTAL PROTEIN, SERUM 6.9 g/dL (6.0-8.3)
[2024-02-03 05:03] LABS: HEMOGLOBIN A1C 8.2 % (4.0-6.0)
--- NOTE | 2024-02-03 06:36 | PN ---
SUBJECTIVE: The patient is a very pleasant 58-year-old diabetic, Latin-Irish male. Hemoglobin A1c of 8.2. Currently afebrile at 98.4, pulse 58, respirations 16, blood pressure 131/71. The patient had an MRI of his right foot. The results of the MRI were consistent with osteomyelitis to the distal phalanx of the right first toe. The patient has had arterial Doppler studies and the results of the arterial Doppler studies showed abnormal monophasic waveforms in the posterior tibial and anterior tibial and dorsalis pedis arteries on the right. The patient has an x-ray, which shows a fracture with intraarticular involvement of the base of the distal phalanx of the right great toe. Currently afebrile, T-max 98.4, pulse 58, respirations 16, blood pressure 131/71. PAST MEDICAL HISTORY: Significant for diabetes, hypertension, peripheral vascular disease and peripheral neuropathy. REVIEW OF SYSTEMS: CONSTITUTIONAL: No chills, no fevers, no night sweats, no nausea, vomiting, no diarrhea. HEENT: No problems with his eyes, ears, nose or throat. CARDIOVASCULAR: He has peripheral vascular disease per arterial Doppler studies. GENITOURINARY: No dysuria. GASTROINTESTINAL: No dysphagia. ENDOCRINE: Diabetes. PSYCHIATRIC: Denied depression. MUSCULOSKELETAL: He has bunions and hammertoe deformities. INTEGUMENT: He has an ulcer to the plantar aspect of his right great toe, ingrown toenail to the right great toe along the medial border. OBJECTIVE: His examination today shows he has palpable anterior and tibial pulse, nonpalpable posterior tibial pulse, bilateral. He has an ulcer to the plantar medial aspect of the right great toe of approximately 15 x 10 x 4 mm. He has an ingrown toenail surgical site to the medial border of the right great toe, clean and granular. ASSESSMENT: Diabetes, peripheral vascular disease, peripheral neuropathy, ingrown toenail and status post removal to the right great toe, osteomyelitis of the distal phalanx right great toe and fracture, base of the right great toe distal phalanx. Arterial Doppler studies are suggesting peripheral vascular disease. PLAN: We will recommend Cardiology evaluation of his circulation status. We will continue with the IV vancomycin that the patient is currently receiving with the IV cefepime. We are awaiting results of the patient's wound cultures. Continue to follow the patient closely while in-house. TID: [id number] RECEIPT: [id number]
[2024-02-03 08:00] VITALS: BP 149/73; PULSE 57; RESP 20; TEMP 98.3
[2024-02-03 08:31] VITALS: O2SAT 96
[2024-02-03] MEDS: hydroCHLOROthiazide 25 MG TABLET PO SCH (08:39)
[2024-02-03] MEDS: linAGLIPtin 5 MG TABLET PO SCH (08:39)
[2024-02-03] MEDS: VANCOMYCIN 1.25 GM/250 ML BAG 250 ML IV SCH (08:39)
[2024-02-03] MEDS: PANTOPrazole 40 MG TAB DR PO SCH (08:39)
--- NOTE | 2024-02-03 10:10 | CONS ---
[facility] Cardiology Consultation Note Note dictated for Avery Reeves MD Date/Time of Consultation: February 03, 2024 CHIEF COMPLAINT: PAD SOURCE: Dr. Marv Kaiser OUTPATIENT FEED BLENDER: N/A OUTPATIENT PRIMARY [place] Kar[place] [place]PI: The patient is a 58-year-old male who originally injured his right toe 2 months ago. Eventually he sought treatment at [facility] about a week ago. He was prescribed antibiotics but did not see any improvement. Because he continued with swelling, erythema and pus, he came to [facility] [place] additional treatment. On evaluation, he was found to have an ingrown toenail and ulceration to the plantar medial aspect of the right great toe. X- rays of the right foot revealed fracture of the distal phalanx with possible intra-articular extension without displacement. The patient was thus admitted with a diagnosis of cellulitis to the right foot. The patient was started on vancomycin and cefepime. Dr. Kaiser was consulted and he treated the patient with excision of the ingrown toenail and debridement of the ulceration. Wound cultures are pending. Dr. Kaiser ordered arterial Dopplers to assess wound healing. Arterial Dopplers suggested significant peripheral arterial disease with monophasic waveform seen in the posterior tibial and anterior tibial arteries and occluded dorsalis pedis artery and the remaining arteries demonstrate biphasic and triphasic waveforms, on the right LE. The left LE revealed abnormal monophasic waveform seen in the anterior tibial and dorsalis pedis arteries suggesting proximal flow-limiting stenosis. The remaining arteries demonstrate normal biphasic and triphasic waveforms. Cardiology was consulted for evaluation of the circulation status. REVIEW OF SYSTEMS: Constitutional: Denies fever, chills, weight loss, weight gain, malaise, fatigue or decreased appetite HEENT: Denies any headaches earaches tinnitus rhinorrhea sore throat or visual disturbances CARDIOVASCULAR: Denies any chest pressure, chest tightness, palpitations, dizziness, or syncopal episodes. He does complain of some shortness of breath at the end of a flight of stairs. GI/: Denies blood in stool or blood in urine ENDOCRINE: Denies cold or heat intolerance, he is diabetic for at least 20 years PSYCHIATRIC: Denied depression. MUSCULOSKELETAL: Denies musculoskeletal complaints at this time EXTREMITIES: Denies claudication, complains of numbness to both feet for few years now, has cramping at night, has complaints of heaviness to both lower e xtremities. Complains of restless legs at night. Hematologic: Denies easy bleeding or easy bruising. PAST MEDICAL HISTORY: Diabetes mellitus, hypertension, peripheral vascular disease, peripheral neuropathy PAST SURGICAL HISTORY: Left orchiectomy FAMILY HISTORY: Denies family history of CAD, PAD SOCIAL HISTORY: Denies smoking tobacco, drinking alcohol Lives alone Coded Allergies: No Known Allergies (Unverified Allergy, Unknown, 02/01/24) Reported Medications Omeprazole (Omeprazole) 20 Mg Capsule.dr, 20 MG PO DAILY, CAP 02/01/24 Hydrochlorothiazide (Hydrochlorothiazide) 12.5 Mg Tablet, 1 TAB PO DAILY for 30 Days, #30 TAB 0 Refills 02/01/24 Lisinopril (Lisinopril) 40 Mg Tablet, 1 TAB PO DAILY for 30 Days, #30 TAB 0 Refills 02/01/24 Sitagliptin Phosphate (Januvia) 25 Mg Tablet, 1 TAB PO DAILY for 30 Days, #30 TAB 0 Refills 02/01/24 Metformin HCl (Metformin HCl) 850 Mg Tablet, 1 TAB PO BIDMEALS for 30 Days, #60 TAB 0 Refills 02/01/24 PHYSICAL EXAMINATION: GENERAL: Resting comfortably, no acute distress. HEENT: Atraumatic. Hearing is intact. No facial asymmetry, nasal discharge, icterus or lid lag. NECK: Symmetric. Midline trachea. No bruits noted bilaterally. CARDIOVASCULAR: Rhythm and rate regular. No murmur No edema. Decreased pedal pulses to left foot RESPIRATORY: Lungs clear to the bases. No retractions, wheezes or rhonchi. GASTROINTESTINAL: Benign, soft, nontender, nondistended. MUSCULOSKELETAL: No amputations. Range of motion is grossly normal. SKIN: No ecchymosis, erythema or ulcers to left foot. Warm to touch. NEUROLOGIC: No tremors. Speech is clear. PSYCHIATRY: Alert and oriented x 3. Cooperative and pleasant. EXTREMITIES: Right foot is dressed. Vital Signs (last 8hr) Date Time Temp Pulse Resp B/P (MAP) Pulse Ox O2 Delivery O2 Flow Rate FiO2 02/03/24 08:31 96 Room Air* 0 21 02/03/24 08:00 98.2 57 20 149/73 96 Room Air 02/03/24 04:00 98.4 58 16 131/71 96 Room Air Hematology Labs: Test 02/03/24 04:20 02/02/24 04:23 Range/Units White Blood Count 6.0 4.8-10.8 K/uL Red Blood Count 4.20 L 4.50-6.20 MIL/uL Hemoglobin 13.7 L 14.0-18.0 g/dL Hematocrit 39.1 L 42-54 % Mean Corpuscular Volume 93.1 79-99 fL Mean Corpuscular Hemoglobin 32.6 27.0-33.0 pg Mean Corpuscular Hemoglobin Concent 35.0 32.0-36.0 g/dL Red Cell Distribution Width 11.5 11.0-15.5 % Platelet Count 225 130-400 K/uL Mean Platelet Volume 9.3 7.5-10.5 fL Nucleated Red Blood Cells 0.0 0.0-0.19 % Immature Granulocyte % (Auto) 0.6 0-1 % Neutrophils (%) (Auto) 64.2 40.0-77.0 % Lymphocytes (%) (Auto) 21.8 21.0-51.0 % Monocytes (%) (Auto) 8.8 3.0-13.0 % Eosinophils (%) (Auto) 3.9 0.0-8.0 % Basophils (%) (Auto) 0.7 0.0-5.0 % Neutrophils # (Auto) 4.3 1.8-7.7 K/uL Lymphocytes # (Auto) 1.5 1.0-4.8 K/uL Monocytes # (Auto) 0.6 0.1-1.0 K/uL Eosinophils # (Auto) 0.26 0.00-0.70 K/uL Basophils # (Auto) 0.05 0.00-0.20 K/uL Absolute Immature Granulocyte (auto 0.04 0-1 K/uL Chemistry Labs: Test 02/03/24 05:39 02/03/24 04:20 02/02/24 04:23 02/01/24 18:33 Range/Units Whole Blood Glucose 160 H 70-110 MG/DL Sodium Level 143 136-145 mmol/L Potassium Level 3.9 3.5-5.1 mmol/L Chloride Level 107 101-111 mmol/L Carbon Dioxide Level 26 21-32 mmol/L Blood Urea Nitrogen 12 7-18 mg/dL Creatinine 0.9 0.5-1.3 mg/dL Glomerular Filtration Rate Calc 98 >90 mL/min Random Glucose 178 H 70-105 mg/dL Hemoglobin A1c 8.2 H 4.0-6.0 % Estimated Average Glucose (eAG) 189 H 70-126 mg/dL Total Calcium 8.6 8.5-10.1 mg/dL Total Bilirubin 0.6 0.2-1.0 mg/dL Aspartate Amino Transf (AST/SGOT) 16 10-37 U/L Alanine Aminotransferase (ALT/SGPT) 24 12-78 U/L Alkaline Phosphatase 88 50-136 U/L Total Protein 6.9 6.0-8.3 g/dL Albumin 3.3 L 3.5-5.0 g/dL Phosphorus Level 3.1 2.5-4.9 mg/dL Magnesium Level 1.70 L 1.80-2.40 mg/dL Thyroid Stimulating Hormone (TSH) 7.50 H 0.36-3.74 uIU/mL Lactic Acid Level 2.0 0.8-2.5 mmol/L Procalcitonin < 0.05 L 0.05-0.5 ng/mL Current Medications Medications (Trade) Dose Ordered Sig/Adria Route Start Time Stop Time Status Last Admin Dose Admin Cefepime HCl (MAXipime 1 GM vial) 1 gm Q8H IVPB 02/02/24 03:00 02/12/24 02:59 02/03/24 03:09 1 GM Enoxaparin Sodium (Lovenox) 40 mg DAILY SQ 02/02/24 09:00 03/03/24 08:59 02/03/24 08:41 40 MG Hydrochlorothiazide (hydroCHLOROthiazide 25MG) 12.5 mg DAILY PO 02/03/24 09:00 03/04/24 08:59 02/03/24 08:39 12.5 MG Insulin Human Regular (humuLIN R 100 UNIT/ML 3ML) INSULIN SLIDING SCAL... ACHS SQ 02/01/24 21:00 03/02/24 20:59 02/02/24 20:31 10 UNIT Linagliptin (TradJENTA) 5 mg DAILY PO 02/03/24 09:00 03/04/24 08:59 02/03/24 08:39 5 MG Lisinopril (Prinivil 40mg) 40 mg DAILY PO 02/02/24 14:00 03/03/24 13:59 02/03/24 08:39 40 MG Pantoprazole Sodium (PROTonix 40MG TAB) 40 mg DAILY PO 02/03/24 09:00 03/04/24 08:59 02/03/24 08:39 40 MG Piperacillin Sod/ Tazobactam Sod 50 ml @ 200 mls/hr STAT STAT IVPB 02/01/24 18:10 02/01/24 18:24 DC 02/01/24 18:52 200 MLS/HR Vancomycin HCl 250 ml @ 125 mls/hr Q12H IV 02/01/24 21:00 02/03/24 07:12 DC 02/02/24 19:33 125 MLS/HR Vancomycin HCl 250 ml @ 125 mls/hr Q12H IV 02/03/24 09:00 02/24/24 08:59 02/03/24 08:39 125 MLS/HR Vancomycin HCl (Vancomycin Protocol) 1 each AD IV 02/01/24 21:00 02/15/24 20:59 RADIOLOGY: US ARTERIAL BILAT LOW EXT DUPL HISTORY: PVD TECHNIQUE: Real-time arterial doppler ultrasound of the lower extremity was performed using B mode, color flow and spectral analysis. FINDINGS: RIGHT: Abnormal monophasic waveform seen in the posterior tibial and anterior tibial arteries. Occluded dorsalis pedis artery. The remaining arteries demonstrate biphasic and triphasic waveforms. LEFT: Abnormal monophasic waveform seen in the anterior tibial and dorsalis pedis arteries suggesting proximal flow-limiting stenosis. The remaining arteries demonstrate normal biphasic and triphasic waveforms. IMPRESSION: RIGHT: Abnormal monophasic waveform seen in the posterior tibial and anterior tibial arteries. Occluded dorsalis pedis artery. The remaining arteries demonstrate biphasic and triphasic waveforms. LEFT: Abnormal monophasic waveform seen in the anterior tibial and dorsalis pedis arteries suggesting proximal flow-limiting stenosis. The remaining arteries demonstrate normal biphasic and triphasic waveforms. MRI right foot: 02/02/2024 IMPRESSION: Findings consistent with osteomyelitis of the distal phalanx of the first toe. right foot xray: 02/01/2024 Findings and impression: Fracture of the distal phalanx proximal aspect with possible intra-articular extension, without displacement. No other abnormalities except for dorsal foot soft tissue swelling. ASSESSMENT: PAD DM - Hgb A1C 8.2 Hypertension GERD Peripheral neuropathy PLAN: The patient has a history of longstanding diabetes mellitus. Dr. Reeves spoke with the patient regarding options of CT angiogram versus catheterization. The patient opted to proceed with the noninvasive approach of the CT angiogram with runoff. We will thus order the exam. Further recommendations to follow once this is available. Case was discussed with Dr. Reeves. Patient was seen and examined under my direction and I agree with the above physical exam findings as well as assessment. My concern at this time is that patient has undergone medical management as an outpatient and had a short inpatient stay at another institution receiving IV antibiotics with a plan to continue with oral treatment as an outpatient but unfortunately symptoms did not improve and patient's wound did not improve. In essence he has failed outpatient conservative management and I have offered invasive abdominal aortography from a left common femoral artery approach with plans on possible intervention to right lower extremity as patient's Doppler studies reveal infrapopliteal disease which may be amenable to percutaneous intervention. After a long discussion with the patient and a description study as well as risks and goals he at this time would prefer a less invasive approach and we have schedule patient for CT angiography of the abdominal aorta with bilateral lower extremity runoffs to assess overall patency of vessels involving the iliac arteries common femoral arteries superficial femoral arteries profunda femoris and infrapopliteal vessels. Further recommendations will follow pending results of above CT angiogram. All questions have been answered to patient's content and orders have been placed. LARRY SMITH Feb 03, 2024 10:10 AVERY REEVES MD Feb 03, 2024 12:17
[2024-02-03 12:00] VITALS: BP 148/81; PULSE 62; RESP 19; TEMP 97.6
[2024-02-03] MEDS ORDERED: IOHEXOL-350 75 ML VIAL IV ONE (12:23)
[2024-02-03] MEDS ORDERED: IOHEXOL-350 50ML VIAL IV ONE (12:23)
[2024-02-03] MEDS: DIPH,PERTUSS(ACELL),TET VAC/PF 0.5 ML VIAL IM ONE (13:13)
--- NOTE | 2024-02-03 13:34 | PN ---
[facility] PROGRESS NOTE Date of Service: Feb 03, 2024 Time of Service: 13:29 SUBJECTIVE: 02/01: [ Edvin Callahan is a 58-year-old male who approximately two months ago tripped and traumatizes right great toe. He did not seek medical attention at the time. Over the past week he noticed increased redness and some pus coming out of his right great toenail and so he sought medical attention here at [facility] Emergency Department. He is a diabetic who does not know what his blood sugars are A1c usually run. The nurse mentioned that his last sugar checked was [address] Kaiser the evp chief exploration officer has already been by and evaluated the patient and dressed his foot an MRI has been ordered and done. 02/02: Patient went down for bilateral CT angio of the aorta with runoffs and is back. He states he felt warm when they injected the iodine contrast. He denies any chest pain or shortness of breath. No nausea or vomiting or diarrhea. His appetite is intact he is urinating and defecating normally. REVIEW OF SYSTEMS 12-point ROS reviewed with the patient. All pertinent positives mentioned above. Otherwise negative, non-pertinent, or noncontributory. PHYSICAL EXAM GENERAL APPEARANCE: The patient is awake, alert, and oriented, in no acute cardiopulmonary distress. NEUROLOGICAL: Cranial nerves II-XII grossly intact. Motor is 5/5 in bilateral upper and lower extremities proximal to distal. No sensory deficits. HEENT: Face is symmetric. Pupils are equal and reactive. Extraocular movements are intact. NECK: Supple. No JVD. No thyromegaly. No submental, submandibular, pre-/pos tauricular, occipital or supraclavicular lymphadenopathy. CHEST: Normal chest expansion. No Telemetry. LUNGS: Absence of any rales, rhonchi or any wheezing. CARDIOVASCULAR: Regular. S1 and S2 normal. No appreciable rubs, murmurs or gallops. ABDOMEN: Soft, nontender, and nondistended. There is no rebound, voluntary guarding, or rigidity. : Deferred. No Obrien. EXTREMITIES: Non-edematous and not cyanotic. No clubbing. Good capillary refill. Right toe and foot is wrapped in both Vaseline gauze dressing and then an external dry Mainor bandage. Second toe of the right foot shows delayed capillary refill nonpalpable pulses of right and left dorsalis pedis noted nonpalpable popliteal on the right palpable on the left. SKIN: No skin breakdown. Lower leg edema has resolved Vital Signs (last 8hr) Date Time Temp Pulse Resp B/P (MAP) Pulse Ox O2 Delivery O2 Flow Rate FiO2 02/03/24 12:00 97.5 62 19 148/81 98 Room Air 02/03/24 08:31 96 Room Air* 0 21 02/03/24 08:00 98.2 57 20 149/73 96 Room Air LABS: Laboratory: Test 02/03/24 11:56 02/03/24 06:35 02/03/24 04:20 02/02/24 04:23 Range/Units Whole Blood Glucose 263 #H 70-110 MG/DL Vancomycin Level Trough 11.0 10.0-20.0 UG/ML White Blood Count 6.0 4.8-10.8 K/uL Red Blood Count 4.20 L 4.50-6.20 MIL/uL Hemoglobin 13.7 L 14.0-18.0 g/dL Hematocrit 39.1 L 42-54 % Mean Corpuscular Volume 93.1 79-99 fL Mean Corpuscular Hemoglobin 32.6 27.0-33.0 pg Mean Corpuscular Hemoglobin Concent 35.0 32.0-36.0 g/dL Red Cell Distribution Width 11.5 11.0-15.5 % Platelet Count 225 130-400 K/uL Mean Platelet Volume 9.3 7.5-10.5 fL Nucleated Red Blood Cells 0.0 0.0-0.19 % Sodium Level 143 136-145 mmol/L Potassium Level 3.9 3.5-5.1 mmol/L Chloride Level 107 101-111 mmol/L Carbon Dioxide Level 26 21-32 mmol/L Blood Urea Nitrogen 12 7-18 mg/dL Creatinine 0.9 0.5-1.3 mg/dL Glomerular Filtration Rate Calc 98 >90 mL/min Random Glucose 178 H 70-105 mg/dL Hemoglobin A1c 8.2 H 4.0-6.0 % Estimated Average Glucose (eAG) 189 H 70-126 mg/dL Total Calcium 8.6 8.5-10.1 mg/dL Total Bilirubin 0.6 0.2-1.0 mg/dL Aspartate Amino Transf (AST/SGOT) 16 10-37 U/L Alanine Aminotransferase (ALT/SGPT) 24 12-78 U/L Alkaline Phosphatase 88 50-136 U/L Total Protein 6.9 6.0-8.3 g/dL Albumin 3.3 L 3.5-5.0 g/dL Immature Granulocyte % (Auto) 0.6 0-1 % Neutrophils (%) (Auto) 64.2 40.0-77.0 % Lymphocytes (%) (Auto) 21.8 21.0-51.0 % Monocytes (%) (Auto) 8.8 3.0-13.0 % Eosinophils (%) (Auto) 3.9 0.0-8.0 % Basophils (%) (Auto) 0.7 0.0-5.0 % Neutrophils # (Auto) 4.3 1.8-7.7 K/uL Lymphocytes # (Auto) 1.5 1.0-4.8 K/uL Monocytes # (Auto) 0.6 0.1-1.0 K/uL Eosinophils # (Auto) 0.26 0.00-0.70 K/uL Basophils # (Auto) 0.05 0.00-0.20 K/uL Absolute Immature Granulocyte (auto 0.04 0-1 K/uL Phosphorus Level 3.1 2.5-4.9 mg/dL Magnesium Level 1.70 L 1.80-2.40 mg/dL Thyroid Stimulating Hormone (TSH) 7.50 H 0.36-3.74 uIU/mL Test 02/01/24 18:33 02/01/24 18:32 Range/Units Lactic Acid Level 2.0 0.8-2.5 mmol/L Procalcitonin < 0.05 L 0.05-0.5 ng/mL Urine Color LIGHT-YELLOW YELLOW Urine Appearance CLEAR CLEAR Urine pH 6.5 5.0-8.0 Urine Specific [place] 1.019 1.001-1.031 Urine Protein NEGATIVE NEGATIVE mg/dL Urine Glucose (UA) 50 H NEGATIVE mg/dL Urine Ketones NEGATIVE NEGATIVE mg/dL Urine Occult Blood NEGATIVE NEGATIVE Urine Nitrate NEGATIVE NEGATIVE Urine Bilirubin NEGATIVE NEGATIVE mg/dL Urine Urobilinogen 3 H 0.2-1.0 mg/dL Urine Leukocyte Esterase NEGATIVE NEGATIVE Juliano/uL Urine RBC 0-1 0-1 /HPF Urine WBC 0-1 0-1 /HPF Urine Bacteria None None Seen /HPF Current Medications Medications (Trade) Dose Ordered Sig/Adria Route PRN Reason Start Time Stop Time Status Last Admin Dose Admin Acetaminophen (TYLenol 325MG TAB) 650 mg Q6H PRN PO FEVER/MILD PAIN LEVEL 1-3 02/01/24 21:00 03/02/24 20:59 Acetaminophen (TYLenol 650MG SUPPOSITORY) 650 mg Q6H PRN RC FEVER / MILD PAIN 1-3 IF NPO 02/01/24 21:00 03/02/24 20:59 Acetaminophen/ Hydrocodone Bitart (NORco 5/325MG) 1 tab Q6H PRN PO MILD PAIN (1-3) 02/01/24 21:00 02/06/24 20:59 Cefepime HCl (MAXipime 1 GM vial) 1 gm Q8H IVPB 02/02/24 03:00 02/12/24 02:59 02/03/24 12:08 1 GM Docusate Sodium (COLace 100MG CAP) 100 mg BID PRN PO c 02/01/24 21:00 03/02/24 20:59 Enoxaparin Sodium (Lovenox) 40 mg DAILY SQ 02/02/24 09:00 03/03/24 08:59 02/03/24 08:41 40 MG Hydralazine HCl (APRESOLine 20MG INJ) 10 mg Q2H PRN IV SBP GREATER THAN 160 02/01/24 21:00 03/02/24 20:59 Hydrochlorothiazide (hydroCHLOROthiazide 25MG) 12.5 mg DAILY PO 02/03/24 09:00 03/04/24 08:59 02/03/24 08:39 12.5 MG Insulin Human Regular (humuLIN R 100 UNIT/ML 3ML) INSULIN SLIDING SCAL... ACHS SQ 02/01/24 21:00 03/02/24 20:59 02/03/24 12:14 10 UNIT Lactulose (Constulose 20gm/ 30ml Udcup) 20 gm Q6H PRN PO CONSTIPATION 02/01/24 21:00 03/02/24 20:59 Linagliptin (TradJENTA) 5 mg DAILY PO 02/03/24 09:00 03/04/24 08:59 02/03/24 08:39 5 MG Lisinopril (Prinivil 40mg) 40 mg DAILY PO 02/02/24 14:00 03/03/24 13:59 02/03/24 08:39 40 MG Magnesium Sulfate 50 ml @ 0 mls/hr PROTOCOL PRN IV MAGNESIUM PROTOCOL 02/02/24 11:00 03/03/24 10:59 02/02/24 13:29 25 MLS/HR Ondansetron HCl (zoFRAN 4MG INJ) 4 mg Q6H PRN IVP NAUSEA/VOMITING 02/01/24 21:00 03/02/24 20:59 Pantoprazole Sodium (PROTonix 40MG TAB) 40 mg DAILY PO 02/03/24 09:00 03/04/24 08:59 02/03/24 08:39 40 MG Piperacillin Sod/ Tazobactam Sod 50 ml @ 200 mls/hr STAT STAT IVPB 02/01/24 18:10 02/01/24 18:24 DC 02/01/24 18:52 200 MLS/HR Potassium Chloride 100 ml @ 100 mls/hr AD PRN IV POTASSIUM PROTOCOL 02/02/24 11:00 03/03/24 10:59 Potassium Chloride (K-Dur/Klor-Con 20meq) 20 meq AD PRN PO POTASSIUM PROTOCOL 02/02/24 11:00 03/03/24 10:59 02/02/24 13:29 20 MEQ Potassium Chloride (KCl 10% Elixir 20meq/15ml) 20 meq AD PRN PO POTASSIUM PROTOCOL 02/02/24 11:00 03/03/24 10:59 Temazepam (restORIL 15 MG CAP) 15 mg HS PRN PO INSOMNIA/SLEEP 02/01/24 21:00 03/02/24 20:59 Vancomycin HCl 250 ml @ 125 mls/hr Q12H IV 02/01/24 21:00 02/03/24 07:12 DC 02/02/24 19:33 125 MLS/HR Vancomycin HCl 250 ml @ 125 mls/hr Q12H IV 02/03/24 09:00 02/24/24 08:59 02/03/24 08:39 125 MLS/HR Vancomycin HCl (Vancomycin Protocol) 1 each AD IV 02/01/24 21:00 02/15/24 20:59 DIAGNOSTICS / RADIOLOGY: [ CT angio of aorta with runoffs pending Wound cultures no anaerobes aerobic culture pending] ASSESSMENT: Cellulitis of right foot and right lower extremity, with failed outpatient antibiotic therapy, POA Right toe diabetic foot ulcer/cellulitis, POA Fracture of the distal phalanx proximal aspect with possible intra-articular extension Acute dehydration, POA Acute kidney injury, GFR 69 Diabetes mellitus with hyperglycemia Uncontrolled hypertension Chronic problem list: Diabetes mellitus type 2, hypertension, left testicular removal Osteomyelitis of the right great toe PLAN: Admit patient to surgical floor. P.r.n. for: Pain management, nausea, vomiting, constipation, hypertension vancomycin IV and cefepime IV continue Vancomycin IV per pharmacy protocol continue Deescalate antibiotics once appropriate. Monitor renal and liver function. Monitor electrolytes and treat accordingly. DVT and GI prophylaxis. Reconciled patient's home medication I mentioned the possibility of amputation of his great toe is the patient does have confirmed osteomyelitis and explained to him the futility of IV antibiotics in treating osteomyelitis patient seemed to be nonplussed. SANTIAGO MATOS MD Feb 03, 2024 13:34
--- NOTE | 2024-02-03 14:12 | HMCIMG ---
CT ANGIO ABD AORTA W RUNOFF HISTORY: PVD TECHNIQUE: CT angiography of the abdomen, pelvis and bilateral lower extremity was performed. Coronal, sagittal MIP and 3-D images were also reconstructed. CT was performed with one or more of the following dose reduction techniques: Automated exposure control, adjustment of the mA and/or kV according to the patient's size, or use of the iterative reconstruction technique. Contrast: 125 cc of contrast FINDINGS: Vascular: Opacification of the arterial system is degraded due to poor contrast timing. There is atherosclerotic changes of the aorta with calcified and soft plaques. No aortic aneurysm or dissection is seen. Atherosclerotic changes of the bilateral common iliac and external iliac arteries are seen. Atherosclerotic changes with moderate severe narrowing in the distal bilateral SFA. The study is markedly degraded due to poor contrast opacification. Moderate narrowing seen in the bilateral popliteal arteries. Evaluation of the arteries in the calf is markedly degraded due to dense plaque and poor opacification. Three-vessel runoff is seen in the proximal bilateral calf. Extensive atherosclerotic changes are seen in the bilateral anterior tibial arteries with multiple areas of high-grade stenosis/occlusion, more pronounced distally. Nonvascular: There is mild hepatic steatosis. No calcified gallstone is seen. No acute findings in the spleen, pancreas and adrenal glands. There is no hydronephrosis. Small right renal cyst is noted. Diffuse urinary bladder wall thickening concerning for cystitis. Correlate with urinalysis. There is mild constipation. No bowel obstruction is seen. Normal appendix. Small fat-containing umbilical hernia is seen. Few foci of air seen in the right lower quadrant abdominal wall suggesting subcutaneous injection. Degenerative changes of the spine are noted. IMPRESSION: Findings as described above. Study is markedly degraded due to poor arterial opacification.
--- NOTE | 2024-02-03 14:13 | NUR ---
Nutrition consult per T2DM education Reviewed labs, notes, and medications. Passenger Car Cleaning Supervisor following, on HH, IV abx, diuretics, insulin, hyperglycemia 263, A1C 8.2, hypomagnesemia 1.70 per chart review. Wt via bed scale, last BM 02/01/24, ulcer in right toe, adequate nutrition, mild pitting, well nourished per nursing. Per research low vitamin D may contribute to insulin resistance + vit. D deficiency may impair wound healing. Recommendations: -Provide HH+ 75 gm cho + prostat jello QD w/ dinner tray -Monitor PO intake -Encourage PO intake as able -Monitor BM -If no BM >3 days consider stool softener -Monitor electrolytes -Replenish electrolytes per protocol -Monitor wts -Reweigh as able -Order Vit D, vit b-12 labs to rule out deficiencies -Order lipid panel -Provide b-complex + vit. C supplement QD to aid in wound healing -Recommend Pt to follow up with PCP -Monitor goals of care RD to follow + available for consult per protocol Addendum: 02/03/24 at [address] Amended: Links added.
[2024-02-03 16:00] VITALS: BP 149/76; PULSE 68; RESP 20; TEMP 98.1
--- NOTE | 2024-02-03 16:53 | CONS ---
INFECTIOUS DISEASE CONSULTATION NOTE DATE OF SERVICE: 02/03/2024 REQUESTING PHYSICIAN: Dr. Cross REASON FOR CONSULTATION: Right great toe osteomyelitis. HISTORY OF PRESENT ILLNESS: A 58-year-old male with history of diabetes mellitus, hypertension, obesity, presented to the hospital with right foot ulcer and pain. No history of trauma or fall. The patient developed ulcer to the foot that has been going on about 2-3 weeks ago. MRI done, which showed osteomyelitis. The patient has been started on multiple antibiotics, which include vancomycin and cefepime. The patient also found to have peripheral vascular disease. Arterial Doppler showing monophasic flow. The patient has been seen by Cardiology. CT angiogram of the abdomen with lower extremity runoff has been ordered. Denied dysuria or urinary frequency. PAST MEDICAL HISTORY: * Diabetes mellitus. * Hypertension. * Obesity. * Peripheral vascular disease. PAST SURGICAL HISTORY: Left orchiectomy. ALLERGIES: No known drug allergy. CURRENT MEDICATIONS: Reviewed. SOCIAL HISTORY: Denies alcohol, tobacco or illicit drug use. FAMILY HISTORY: Positive for diabetes mellitus. REVIEW OF SYSTEMS: CONSTITUTIONAL: Denies fever or chills. No weight loss or night sweats. EYES: No eye pain, no photophobia or diplopia. HENT: No sore throat or rhinorrhea or earache. NECK: No neck pain or neck swelling. RESPIRATORY: No cough, no hemoptysis or pleuritic pain. CARDIOVASCULAR: No chest pain, no palpitation or orthopnea. GASTROINTESTINAL: Denied nausea, vomiting, or abdominal pain. GENITOURINARY: No dysuria, urgency or urinary frequency. CENTRAL NERVOUS SYSTEM: No headache, dyspnea, or slurred speech. PSYCHIATRY: No depression. No suicidal ideation. MUSCULOSKELETAL: No joint pain, no joint swelling. EXTREMITIES: Positive for right great toe ulcer and pain. PHYSICAL EXAMINATION: GENERAL: Elderly male, awake. VITAL SIGNS: Temperature 98.2, pulse 57, respiratory rate 20, BP 149/73. EYES: No icterus. Pupils equal and reactive. HENT: No oral thrush seen. Moist oral mucosa. NECK: Supple, no JVD or thyromegaly. LUNGS: Good air entry. No rales, no rhonchi. CARDIOVASCULAR: S1, S2, regular. No murmur heard. ABDOMEN: Full, soft, nontender. Bowel sound is present. Obese. No organomegaly. CENTRAL NERVOUS SYSTEM: Awake, alert, oriented x 3. No focal deficits. SKIN: No rashes, no itchiness. LYMPHATIC: There is right inguinal lymphadenopathy. BACK: No deformity, no pressure ulcer. EXTREMITIES: Ulcer involving the right great toe. LABORATORY DATA: Sodium 143, potassium 3.9, BUN 12, creatinine 0.9. WBC 6.0, hemoglobin 13.7, platelet 224. RADIOLOGY: MRI of the right foot shows osteomyelitis, ____ toe. Arterial Doppler showed abnormal monophasic flow. ASSESSMENT: A 58-year-old male presenting with right great toe ulcer. CURRENT PROBLEMS: Include: * Right great toe osteomyelitis. * Diabetic foot ulcer. * Peripheral vascular disease. * Cellulitis. * Obesity. * Hypertension. PLAN: * Continue cefepime. * Continue vancomycin. * Follow up cultures. * Continue pain management. * Continue antidiabetic. * Continue nutritional support. * Monitor electrolytes. * The patient will be followed up closely. Thank you for allowing me to participate in the care of this patient. TID: [id number] RECEIPT: [id number] [facility]
[2024-02-03 20:00] VITALS: BP 153/77; PULSE 65; RESP 16; TEMP 98.3; O2SAT 96
[2024-02-04] VITALS (9 sets, daily range): BP systolic 135–156; BP diastolic 56–82; PULSE 60–75; RESP 16–18; TEMP 98.1–98.6; O2SAT 96
--- NOTE | 2024-02-04 07:58 | PN ---
SUBJECTIVE: The patient is a very pleasant 58-year-old diabetic, Latin-H[place]er male, seen on date of service 02/04/2024. He has had a T-max of 98.4, pulse of 65, respirations 16, blood pressure 156/82. White count 6.0, H and H 13.7 and 39.1, platelets 225. The patient is currently receiving IV vancomycin. Blood cultures, no growth. Wound cultures, gram negative rods. Identifications and sensitivities to follow. The patient had an MRI of the right foot, showed osteomyelitis, distal phalanx, right first toe. The patient had abnormal arterial Doppler studies, had a CT angiography that showed vascular opacification of the arterial system, atherosclerotic changes, [id number] narrowing of bilateral SFA, moderate narrowing seen in bilateral popliteals, extensive atherosclerotic changes in bilateral anterior tibial arteries. The patient is currently afebrile. White count 6.0, H and H 13.7 and 39.1, platelets 225. The patient is being followed by Infectious Disease, currently receiving cefepime and vancomycin. The patient is being followed by the Cardiology Service for evaluation of peripheral vascular disease. He has had abnormal monophasic waveform seen in the posterior and anterior tibial artery and suggestion of an occluded dorsalis pedis artery on the right. Further recommendations are pending Cardiology's evaluation of the CT angiography. PAST MEDICAL HISTORY: Significant for diabetes, hypertension, peripheral vascular disease and peripheral neuropathy. REVIEW OF SYSTEMS: CONSTITUTIONAL: No chills, no fevers, no night sweats, no nausea, vomiting, no diarrhea. HEENT: No problems with eyes, ears, nose or throat. CARDIOVASCULAR: He has peripheral vascular disease per arterial Doppler studies and CT angiography. HEENT: No problems with the eyes, ears, nose, throat. CARDIOVASCULAR: Peripheral vascular disease per evaluation. GENITOURINARY: No dysuria. GASTROINTESTINAL: No dysphagia. ENDOCRINE: Diabetes. PSYCHIATRIC: Denied. MUSCULOSKELETAL: Bunions and hammertoes. INTEGUMENT: He has an ulcer to the plantar aspect of his right great toe, ingrown toenail, right great toe along the medial border. OBJECTIVE: Exam shows he has palpable anterior tibial pulse, nonpalpable posterior tibial pulse bilaterally. He has an ulcer to the plantar medial aspect of the right great toe, 15 x 10 x 4. He has an ulcer secondary to ingrown toenail, medial border of the right hallux nail, it is clean and granular. ASSESSMENT: Diabetes, peripheral vascular disease, peripheral neuropathy, ingrown toenail, status post removal, right great toe ulcer, status post debridement, osteomyelitis, distal phalanx of the right great toe and fracture of the base of the right great toe, distal phalanx. Arterial Doppler studies and CT angiography suggests peripheral vascular disease. PLAN: We will continue with recommendations for Cardiology and Infectious Disease, ____ currently receiving IV vancomycin and IV cefepime. We are awaiting results of his cultures and sensitivities. So far growing gram negative rods. Identifications and sensitivity is pending. We will continue with Hydrofera Blue dressings to his wounds. We are waiting Cardiology's evaluation of his circulation status. Follow the patient closely while in-house. TID: [id number] RECEIPT: [id number]
--- NOTE | 2024-02-04 09:11 | PN ---
Patient presented with infected right foot related to a disruption of the nail in the presence of peripheral arterial disease. CTA is of poor quality but suggest popliteal and infrapopliteal disease. Patient is generally comfortable. He had elected for a more conservative approach with a CTA but now accepts invasive angiography and possible intervention. Plan: I am attempting to arrange angiography and NETWORKING TECHNOLOGY INSTRUCTOR either by myself or the on-call physician. Today Dr. Becerra is on-call but I have not been able to get through to her just yet. I will also Vitals/Labs Vital Signs Date Time Temp Pulse Resp B/P (MAP) Pulse Ox O2 Delivery O2 Flow Rate FiO2 02/04/24 04:00 98.2 61 16 143/73 98 Room Air 21 02/03/24 20:00 0 Medications Current Medications Piperacillin Sod/ Tazobactam Sod 50 ml @ 200 mls/hr STAT STAT IVPB Last administered on 02/01/24at 18:52; Start 02/01/24 at 18:10; Stop 02/01/24 at 18:24; Status DC Vancomycin HCl 250 ml @ 125 mls/hr ONCE ONCE IV Last administered on 02/01/24at 19:22; Start 02/01/24 at 18:30; Stop 02/01/24 at 20:29; Status DC Sodium Chloride 2,640 ml @ 880 mls/hr ONCE ONCE IV Last administered on 02/01/24at 18:53; Start 02/01/24 at 18:30; Stop 02/01/24 at 21:29; Status DC Ondansetron HCl 4 mg ONCE ONCE IVP Last administered on 02/01/24at 20:21; Start 02/01/24 at 20:00; Stop 02/01/24 at 20:01; Status DC Morphine Sulfate 4 mg ONCE ONCE IVP Last administered on 02/01/24at 20:21; Start 02/01/24 at 20:00; Stop 02/01/24 at 20:01; Status DC Vancomycin HCl 1 each AD IV; Start 02/01/24 at 21:00; Stop 02/15/24 at 20:59 Enoxaparin Sodium 40 mg DAILY SQ Last administered on 02/03/24at 08:41; Start 02/02/24 at 09:00; Stop 03/03/24 at 08:59 Acetaminophen 650 mg Q6H PRN PO; Start 02/01/24 at 21:00; Stop 03/02/24 at 20:59 Acetaminophen 650 mg Q6H PRN RC; Start 02/01/24 at 21:00; Stop 03/02/24 at 20:59 Acetaminophen/ Hydrocodone Bitart 1 tab Q6H PRN PO; Start 02/01/24 at 21:00; Stop 02/06/24 at 20:59 Lactulose 20 gm Q6H PRN PO; Start 02/01/24 at 21:00; Stop 03/02/24 at 20:59 Docusate Sodium 100 mg BID PRN PO; Start 02/01/24 at 21:00; Stop 03/02/24 at 20:59 Temazepam 15 mg HS PRN PO; Start 02/01/24 at 21:00; Stop 03/02/24 at 20:59 Ondansetron HCl 4 mg Q6H PRN IVP; Start 02/01/24 at 21:00; Stop 03/02/24 at 20:59 Hydralazine HCl 10 mg Q2H PRN IV; Start 02/01/24 at 21:00; Stop 03/02/24 at 20:59 Insulin Human Regular INSULIN SLIDING SCAL... ACHS SQ Last administered on 02/04/24at 06:32; Start 02/01/24 at 21:00; Stop 03/02/24 at 20:59 Cefepime HCl 1 gm Q8H IVPB Last administered on 02/04/24at 03:41; Start 02/02/24 at 03:00; Stop 02/12/24 at 02:59 Vancomycin HCl 250 ml @ 125 mls/hr Q12H IV Last administered on 02/02/24at 19:33; Start 02/01/24 at 21:00; Stop 02/03/24 at 07:12; Status DC Magnesium Sulfate 50 ml @ 0 mls/hr PROTOCOL PRN IV Last administered on 02/02/24at 13:29; Start 02/02/24 at 11:00; Stop 03/03/24 at 10:59 Potassium Chloride 100 ml @ 100 mls/hr AD PRN IV; Start 02/02/24 at 11:00; Stop 03/03/24 at 10:59 Potassium Chloride 20 meq AD PRN PO; Start 02/02/24 at 11:00; Stop 03/03/24 at 10:59 Potassium Chloride 20 meq AD PRN PO Last administered on 02/02/24at 13:29; Start 02/02/24 at 11:00; Stop 03/03/24 at 10:59 Lisinopril 40 mg DAILY PO Last administered on 02/03/24at 08:39; Start 02/02/24 at 14:00; Stop 03/03/24 at 13:59 Hydrochlorothiazide 12.5 mg DAILY PO Last administered on 02/03/24at 08:39; Start 02/03/24 at 09:00; Stop 03/04/24 at 08:59 Pantoprazole Sodium 40 mg DAILY PO Last administered on 02/03/24at 08:39; Start 02/03/24 at 09:00; Stop 03/04/24 at 08:59 Linagliptin 5 mg DAILY PO Last administered on 02/03/24at 08:39; Start 02/03/24 at 09:00; Stop 03/04/24 at 08:59 Vancomycin HCl 250 ml @ 125 mls/hr Q12H IV Last administered on 02/03/24at 20:02; Start 02/03/24 at 09:00; Stop 02/24/24 at 08:59 Diphtheria/ Tetanus/Acell Pertussis 0.5 ml ONCE ONCE IM Last administered on 02/03/24at 13:13; Start 02/03/24 at 12:00; Stop 02/03/24 at 12:11; Status DC Iohexol 75 ml STK-MED ONCE IV; Start 02/03/24 at 12:23; Stop 02/03/24 at 12:23; Status DC Iohexol 50 ml STK-MED ONCE IV; Start 02/03/24 at 12:23; Stop 02/03/24 at 12:24; Status DC CHEN CAO MD Feb 04, 2024 09:11
[2024-02-04 10:32] LABS: PROTHROMBIN TIME 10.8 SEC (9.6-11.6)
[2024-02-04 10:33] LABS: PARTIAL THROMBOPLASTIN TIME 26.2 SEC (26.3-35.5)
--- NOTE | 2024-02-04 12:30 | PN ---
INFECTIOUS DISEASE PROGRESS NOTE Date of Service: Feb 04, 2024 SUBJECTIVE: This is a 58-year-old male patient who was seen and examined at bedside in room 316. Patient is awake, alert and oriented x3. Patient with right great toe osteomyelitis. Right foot wound cultures positive for Enterobacter cloacae and Enterococcus faecalis. No reports of fever, temperature is 98.2. Patient currently remains on vancomycin IV every 12 hours and cefepime 1 g IV Q 8 hours. Will continue to monitor patient. PHYSICAL EXAM EYES: Anicteric. Pupils equal and reactive. HENT: No oral thrush seen, moist Oral mucosa. NECK: Supple, no JVD or thyromegaly. LUNGS: Good air entry. No rales, no rhonchi. CARDIOVASCULAR: S1, S2 regular. No murmur heard. ABDOMEN: Soft, non tender, bowel sounds present, no organomegaly CENTRAL NERVOUS SYSTEM: Awake, alert, oriented x 3. SKIN: No rashes, no swelling. Right foot diabetic ulcer. LYMPHATICS: No peripheral lymphadenopathy. MUSCULOSKELETAL: No joint swelling, erythema or tenderness. EXTREMITIES: No cyanosis or clubbing. BACK: No deformity, no pressure ulcer. GENITOURINARY: No dysuria or hematuria. Vital Sign (Last 12 Hours) 02/04/24 02/04/24 02/04/24 04:00 08:00 12:00 Temp 98.2 98.2 98.4 Pulse 61 75 65 Resp 16 18 18 B/P (MAP) 143/73 142/71 155/82 Pulse Ox 98 96 97 O2 Delivery Room Air Room Air Room Air FiO2 21 Intake & Output (last 24hrs) 02/03/24 02/03/24 02/04/24 15:00 23:00 07:00 Intake Total 350.0 ml Balance 350.0 ml LABS: Laboratory: Test 02/04/24 11:21 02/04/24 10:05 02/03/24 06:35 02/03/24 04:20 Range/Units Whole Blood Glucose 248 H 70-110 MG/DL Prothrombin Time 10.8 9.6-11.6 SEC Prothromb Time International Ratio 1.00 0.85-1.15 Activated Partial Thromboplast Time 26.2 L 26.3-35.5 SEC Vancomycin Level Trough 11.0 10.0-20.0 UG/ML White Blood Count 6.0 4.8-10.8 K/uL Red Blood Count 4.20 L 4.50-6.20 MIL/uL Hemoglobin 13.7 L 14.0-18.0 g/dL Hematocrit 39.1 L 42-54 % Mean Corpuscular Volume 93.1 79-99 fL Mean Corpuscular Hemoglobin 32.6 27.0-33.0 pg Mean Corpuscular Hemoglobin Concent 35.0 32.0-36.0 g/dL Red Cell Distribution Width 11.5 11.0-15.5 % Platelet Count 225 130-400 K/uL Mean Platelet Volume 9.3 7.5-10.5 fL Nucleated Red Blood Cells 0.0 0.0-0.19 % Sodium Level 143 136-145 mmol/L Potassium Level 3.9 3.5-5.1 mmol/L Chloride Level 107 101-111 mmol/L Carbon Dioxide Level 26 21-32 mmol/L Blood Urea Nitrogen 12 7-18 mg/dL Creatinine 0.9 0.5-1.3 mg/dL Glomerular Filtration Rate Calc 98 >90 mL/min Random Glucose 178 H 70-105 mg/dL Hemoglobin A1c 8.2 H 4.0-6.0 % Estimated Average Glucose (eAG) 189 H 70-126 mg/dL Total Calcium 8.6 8.5-10.1 mg/dL Total Bilirubin 0.6 0.2-1.0 mg/dL Aspartate Amino Transf (AST/SGOT) 16 10-37 U/L Alanine Aminotransferase (ALT/SGPT) 24 12-78 U/L Alkaline Phosphatase 88 50-136 U/L Total Protein 6.9 6.0-8.3 g/dL Albumin 3.3 L 3.5-5.0 g/dL Vitamin B12 Level 167 L 193-986 pg/mL ASSESSMENT: Right great toe osteomyelitis. PVD. Right foot Diabetic ulcer. Wound Infection with Enterobacter cloacae and Enterococcus faecalis Cellulitis. Hypertension. PLAN: Continue cefepime IV. Continue vancomycin per pharmacy protocol. Continue GI prophylaxis. Continue pain management. Continue monitoring glucose levels. Patient is scheduled for peripheral angiogram. This case was reviewed and discussed with my supervising physician and the above assessment and plan was formulated and agreed upon. ATTESTATION BY PHYSICIAN I have seen and examined the patient. I reviewed the documentation, medical decision making, and treatment plan as noted by the mid-level provider above. I agree with the findings and plan of care. ESTEBAN NG MD, MIRTA L [facility] Feb 04, 2024 12:30
--- NOTE | 2024-02-04 13:05 | PN ---
[facility] PROGRESS NOTE Date of Service: Feb 04, 2024 Time of Service: 12:50 SUBJECTIVE: 02/01: [ Edvin Callahan is a 58-year-old male who approximately two months ago tripped and traumatizes right great toe. He did not seek medical attention at the time. Over the past week he noticed increased redness and some pus coming out of his right great toenail and so he sought medical attention here at [facility] [facility]. He is a diabetic who does not know what his blood sugars are A1c usually run. The nurse mentioned that his last sugar checked was [address] Kaiser the cemetery counselor has already been by and evaluated the patient and dressed his foot an MRI has been ordered and done. 02/02: Patient went down for bilateral CT angio of the aorta with runoffs and is back. He states he felt warm when they injected the iodine contrast. He denies any chest pain or shortness of breath. No nausea or vomiting or diarrhea. His appetite is intact he is urinating and defecating normally. 02/03 patient seen at bedside, no acute events overnight. Patient has been evaluated by cardiology who is planning a laboratory asst procedure with possible intervention, will follow up post procedure. Lab holiday today. REVIEW OF SYSTEMS 12-point ROS reviewed with the patient. All pertinent positives mentioned above. Otherwise negative, non-pertinent, or noncontributory. PHYSICAL EXAM GENERAL APPEARANCE: The patient is awake, alert, and oriented, in no acute cardiopulmonary distress. NEUROLOGICAL: Cranial nerves II-XII grossly intact. Motor is 5/5 in bilateral upper and lower extremities proximal to distal. No sensory deficits. HEENT: Face is symmetric. Pupils are equal and reactive. Extraocular movements are intact. NECK: Supple. No JVD. No thyromegaly. No submental, submandibular, pre- /postauricular, occipital or supraclavicular lymphadenopathy. CHEST: Normal chest expansion. No Telemetry. LUNGS: Absence of any rales, rhonchi or any wheezing. CARDIOVASCULAR: Regular. S1 and S2 normal. No appreciable rubs, murmurs or gallops. ABDOMEN: Soft, nontender, and nondistended. There is no rebound, voluntary guarding, or rigidity. : Deferred. No Obrien. EXTREMITIES: Non-edematous and not cyanotic. No clubbing. Good capillary refill. Right toe and foot is wrapped in both Vaseline gauze dressing and then an external dry Mainor bandage. Second toe of the right foot shows delayed capillary refill nonpalpable pulses of right and left dorsalis pedis noted nonpalpable popliteal on the right palpable on the left. SKIN: No skin breakdown. Lower leg edema has resolved Vital Signs (last 8hr) Date Time Temp Pulse Resp B/P (MAP) Pulse Ox O2 Delivery O2 Flow Rate FiO2 02/04/24 12:00 98.4 65 18 155/82 97 Room Air 02/04/24 08:00 98.2 75 18 142/71 96 Room Air LABS: Laboratory: Test 02/04/24 11:21 02/04/24 10:05 02/03/24 06:35 02/03/24 04:20 Range/Units Whole Blood Glucose 248 H 70-110 MG/DL Prothrombin Time 10.8 9.6-11.6 SEC Prothromb Time International Ratio 1.00 0.85-1.15 Activated Partial Thromboplast Time 26.2 L 26.3-35.5 SEC Vancomycin Level Trough 11.0 10.0-20.0 UG/ML White Blood Count 6.0 4.8-10.8 K/uL Red Blood Count 4.20 L 4.50-6.20 MIL/uL Hemoglobin 13.7 L 14.0-18.0 g/dL Hematocrit 39.1 L 42-54 % Mean Corpuscular Volume 93.1 79-99 fL Mean Corpuscular Hemoglobin 32.6 27.0-33.0 pg Mean Corpuscular Hemoglobin Concent 35.0 32.0-36.0 g/dL Red Cell Distribution Width 11.5 11.0-15.5 % Platelet Count 225 130-400 K/uL Mean Platelet Volume 9.3 7.5-10.5 fL Nucleated Red Blood Cells 0.0 0.0-0.19 % Sodium Level 143 136-145 mmol/L Potassium Level 3.9 3.5-5.1 mmol/L Chloride Level 107 101-111 mmol/L Carbon Dioxide Level 26 21-32 mmol/L Blood Urea Nitrogen 12 7-18 mg/dL Creatinine 0.9 0.5-1.3 mg/dL Glomerular Filtration Rate Calc 98 >90 mL/min Random Glucose 178 H 70-105 mg/dL Hemoglobin A1c 8.2 H 4.0-6.0 % Estimated Average Glucose (eAG) 189 H 70-126 mg/dL Total Calcium 8.6 8.5-10.1 mg/dL Total Bilirubin 0.6 0.2-1.0 mg/dL Aspartate Amino Transf (AST/SGOT) 16 10-37 U/L Alanine Aminotransferase (ALT/SGPT) 24 12-78 U/L Alkaline Phosphatase 88 50-136 U/L Total Protein 6.9 6.0-8.3 g/dL Albumin 3.3 L 3.5-5.0 g/dL Vitamin B12 Level 167 L 193-986 pg/mL Current Medications Medications (Trade) Dose Ordered Sig/Adria Route PRN Reason Start Time Stop Time Status Last Admin Dose Admin Acetaminophen (TYLenol 325MG TAB) 650 mg Q6H PRN PO FEVER/MILD PAIN LEVEL 1-3 02/01/24 21:00 03/02/24 20:59 Acetaminophen (TYLenol 650MG SUPPOSITORY) 650 mg Q6H PRN RC FEVER / MILD PAIN 1-3 IF NPO 02/01/24 21:00 03/02/24 20:59 Acetaminophen/ Hydrocodone Bitart (NORco 5/325MG) 1 tab Q6H PRN PO MODERATE PAIN (4-6) 02/01/24 21:00 02/06/24 20:59 Cefepime HCl (MAXipime 1 GM vial) 1 gm Q8H IVPB 02/02/24 03:00 02/12/24 02:59 02/04/24 03:41 1 GM Docusate Sodium (COLace 100MG CAP) 100 mg BID PRN PO c 02/01/24 21:00 03/02/24 20:59 Enoxaparin Sodium (Lovenox) 40 mg DAILY SQ 02/02/24 09:00 03/03/24 08:59 02/03/24 08:41 40 MG Hydralazine HCl (APRESOLine 20MG INJ) 10 mg Q2H PRN IV SBP GREATER THAN 160 02/01/24 21:00 03/02/24 20:59 Hydrochlorothiazide (hydroCHLOROthiazide 25MG) 12.5 mg DAILY PO 02/03/24 09:00 03/04/24 08:59 02/04/24 09:27 12.5 MG Insulin Human Regular (humuLIN R 100 UNIT/ML 3ML) INSULIN SLIDING SCAL... ACHS SQ 02/01/24 21:00 03/02/24 20:59 02/04/24 11:59 8 UNIT Lactulose (Constulose 20gm/ 30ml Udcup) 20 gm Q6H PRN PO CONSTIPATION 02/01/24 21:00 03/02/24 20:59 Linagliptin (TradJENTA) 5 mg DAILY PO 02/03/24 09:00 03/04/24 08:59 02/04/24 09:26 5 MG Lisinopril (Prinivil 40mg) 40 mg DAILY PO 02/02/24 14:00 03/03/24 13:59 02/04/24 09:27 40 MG Magnesium Sulfate 50 ml @ 0 mls/hr PROTOCOL PRN IV MAGNESIUM PROTOCOL 02/02/24 11:00 03/03/24 10:59 02/02/24 13:29 25 MLS/HR Ondansetron HCl (zoFRAN 4MG INJ) 4 mg Q6H PRN IVP NAUSEA/VOMITING 02/01/24 21:00 03/02/24 20:59 Pantoprazole Sodium (PROTonix 40MG TAB) 40 mg DAILY PO 02/03/24 09:00 03/04/24 08:59 02/04/24 09:27 40 MG Piperacillin Sod/ Tazobactam Sod 50 ml @ 200 mls/hr STAT STAT IVPB 02/01/24 18:10 02/01/24 18:24 DC 02/01/24 18:52 200 MLS/HR Potassium Chloride 100 ml @ 100 mls/hr AD PRN IV POTASSIUM PROTOCOL 02/02/24 11:00 03/03/24 10:59 Potassium Chloride (K-Dur/Klor-Con 20meq) 20 meq AD PRN PO POTASSIUM PROTOCOL 02/02/24 11:00 03/03/24 10:59 02/02/24 13:29 20 MEQ Potassium Chloride (KCl 10% Elixir 20meq/15ml) 20 meq AD PRN PO POTASSIUM PROTOCOL 02/02/24 11:00 03/03/24 10:59 Temazepam (restORIL 15 MG CAP) 15 mg HS PRN PO INSOMNIA/SLEEP 02/01/24 21:00 03/02/24 20:59 Vancomycin HCl 250 ml @ 125 mls/hr Q12H IV 02/01/24 21:00 02/03/24 07:12 DC 02/02/24 19:33 125 MLS/HR Vancomycin HCl 250 ml @ 125 mls/hr Q12H IV 02/03/24 09:00 02/24/24 08:59 02/04/24 09:29 125 MLS/HR Vancomycin HCl (Vancomycin Protocol) 1 each AD IV 02/01/24 21:00 02/15/24 20:59 DIAGNOSTICS / RADIOLOGY: [ ] ASSESSMENT: Cellulitis of right foot and right lower extremity, with failed outpatient antibiotic therapy, POA Right toe diabetic foot ulcer/cellulitis, POA Fracture of the distal phalanx proximal aspect with possible intra-articular extension Acute dehydration, POA Acute kidney injury, GFR 69 Diabetes mellitus with hyperglycemia Uncontrolled hypertension Chronic problem list: Diabetes mellitus type 2, hypertension, left testicular removal Osteomyelitis of the right great toe PLAN: Admit patient to surgical floor. P.r.n. for: Pain management, nausea, vomiting, constipation, hypertension Vancomycin IV and cefepime IV continue Cardiology consulted Infectious disease consulted, appreciate recommendations Podiatry consulted, appreciate recommendations medical laboratory specialist procedure with possible intervention today Monitor renal and liver function. Monitor electrolytes and treat accordingly. DVT and GI prophylaxis. Disposition: Pending cath procedure, cardiology recommendations, ID recommendations MATTHEW PISANO MD Feb 04, 2024 13:05
[2024-02-04] MEDS: ceFEPime HCL 1 GM VIAL IVPB SCH (20:58)
[2024-02-05] VITALS (14 sets, daily range): BP systolic 128–155; BP diastolic 55–85; PULSE 57–70; RESP 16–18; TEMP 97.8–98.6; O2SAT 95–99
[2024-02-05 05:09] LABS: BASOPHILS # (AUTO) 0.04 K/uL (0.00-0.20); BASOPHILS % (AUTO) 0.5 % (0.0-5.0); EOSINOPHILS # (AUTO) 0.29 K/uL (0.00-0.70); EOSINOPHILS % (AUTO) 3.9 % (0.0-8.0); HEMATOCRIT 42.9 % (42-54); IMMATURE GRANULOCYTE ABSOLUTE 0.04 K/uL (0-1); LYMPHOCYTES # (AUTO) 1.2 K/uL (1.0-4.8); LYMPHOCYTES % (AUTO) 16.2 % (21.0-51.0); MEAN CORPUSCULAR HEMOGLOBIN 32.4 pg (27.0-33.0); MEAN CORPUSCULAR HGB CONC 34.7 g/dL (32.0-36.0); MEAN CORPUSCULAR VOLUME 93.3 fL (79-99); MONOCYTES # (AUTO) 0.6 K/uL (0.1-1.0); MONOCYTES % (AUTO) 7.7 % (3.0-13.0); NEUTROPHILS # (AUTO) 5.3 K/uL (1.8-7.7); NEUTROPHILS % (AUTO) 71.2 % (40.0-77.0); PLATELET COUNT (AUTO) 247 K/uL (130-400); RED CELL DISTRIBUTION WIDTH 11.6 % (11.0-15.5); WHITE BLOOD COUNT (AUTO) 7.4 K/uL (4.8-10.8)
[2024-02-05 05:56] LABS: CREATININE 0.9 mg/dL (0.5-1.3); MAGNESIUM 1.9 mg/dL (1.80-2.40); PHOSPHORUS 3.8 mg/dL (2.5-4.9); POTASSIUM 3.5 mmol/L (3.5-5.1)
--- NOTE | 2024-02-05 09:00 | NUR ---
Did not give oral medication due to patient being NPO. Did not give lovenox subcutaneous due to patient going to a procedure.
--- NOTE | 2024-02-05 10:00 | NUR ---
Called microbiology lab manager, they stated patient will go to procedure at around 1600. Notify patient.
--- NOTE | 2024-02-05 11:30 | NUR ---
Blood glucose 225. Did not cover due to patient being NPO and to prevent hypoglycemia.
--- NOTE | 2024-02-05 13:07 | PN ---
[facility] PROGRESS NOTE Date of Service: Feb 05, 2024 Time of Service: 13:06 SUBJECTIVE: 02/01: [ Edvin Callahan is a 58-year-old male who approximately two months ago tripped and traumatizes right great toe. He did not seek medical attention at the time. Over the past week he noticed increased redness and some pus coming out of his right great toenail and so he sought medical attention here at [facility] [place] [facility]. He is a diabetic who does not know what his blood sugars are A1c usually run. The nurse mentioned that his last sugar checked was [address] Kaiser the auto transport driver has already been by and evaluated the patient and dressed his foot an MRI has been ordered and done. 02/02: Patient went down for bilateral CT angio of the aorta with runoffs and is back. He states he felt warm when they injected the iodine contrast. He denies any chest pain or shortness of breath. No nausea or vomiting or diarrhea. His appetite is intact he is urinating and defecating normally. 02/03 patient seen at bedside, no acute events overnight. Patient has been evaluated by cardiology who is planning a helper animal laboratory procedure with possible intervention, will follow up post procedure. Lab holiday today. 02/04 patient seen at bedside, no acute events overnight. Pending helper animal laboratory procedure sometime today, we will follow up with Cardiology recommendations. He has been afebrile, hemodynamically stable saturating well on room air. Labs are unremarkable. Continue with empiric antibiotics. REVIEW OF SYSTEMS 12-point ROS reviewed with the patient. All pertinent positives mentioned above. Otherwise negative, non-pertinent, or noncontributory. PHYSICAL EXAM GENERAL APPEARANCE: The patient is awake, alert, and oriented, in no acute cardiopulmonary distress. NEUROLOGICAL: Cranial nerves II-XII grossly intact. Motor is 5/5 in bilateral upper and lower extremities proximal to distal. No sensory deficits. HEENT: Face is symmetric. Pupils are equal and reactive. Extraocular movements are intact. NECK: Supple. No JVD. No thyromegaly. No submental, submandibular, pre-/postauricular, occipital or supraclavicular lymphadenopathy. CHEST: Normal chest expansion. No Telemetry. LUNGS: Absence of any rales, rhonchi or any wheezing. CARDIOVASCULAR: Regular. S1 and S2 normal. No appreciable rubs, murmurs or gallops. ABDOMEN: Soft, nontender, and nondistended. There is no rebound, voluntary guarding, or rigidity. : Deferred. No Obrien. EXTREMITIES: Non-edematous and not cyanotic. No clubbing. Good capillary refill. Right toe and foot is wrapped in both Vaseline gauze dressing and then an external dry Mainor bandage. Second toe of the right foot shows delayed capillary refill nonpalpable pulses of right and left dorsalis pedis noted nonpalpable popliteal on the right palpable on the left. SKIN: No skin breakdown. Lower leg edema has resolved Vital Signs (last 8hr) Date Time Temp Pulse Resp B/P (MAP) Pulse Ox O2 Delivery O2 Flow Rate FiO2 02/05/24 12:00 97.9 64 18 139/55 96 Room Air 02/05/24 08:00 97.9 65 18 128/78 95 02/05/24 08:00 95 Room Air* 0 21 LABS: Laboratory: Test 02/05/24 11:37 02/05/24 04:39 02/04/24 20:15 02/04/24 10:05 Range/Units Whole Blood Glucose 225 #H 70-110 MG/DL White Blood Count 7.4 4.8-10.8 K/uL Red Blood Count 4.60 4.50-6.20 MIL/uL Hemoglobin 14.9 14.0-18.0 g/dL Hematocrit 42.9 42-54 % Mean Corpuscular Volume 93.3 79-99 fL Mean Corpuscular Hemoglobin 32.4 27.0-33.0 pg Mean Corpuscular Hemoglobin Concent 34.7 32.0-36.0 g/dL Red Cell Distribution Width 11.6 11.0-15.5 % Platelet Count 247 130-400 K/uL Mean Platelet Volume 9.8 7.5-10.5 fL Immature Granulocyte % (Auto) 0.5 0-1 % Neutrophils (%) (Auto) 71.2 40.0-77.0 % Lymphocytes (%) (Auto) 16.2 L 21.0-51.0 % Monocytes (%) (Auto) 7.7 3.0-13.0 % Eosinophils (%) (Auto) 3.9 0.0-8.0 % Basophils (%) (Auto) 0.5 0.0-5.0 % Neutrophils # (Auto) 5.3 1.8-7.7 K/uL Lymphocytes # (Auto) 1.2 1.0-4.8 K/uL Monocytes # (Auto) 0.6 0.1-1.0 K/uL Eosinophils # (Auto) 0.29 0.00-0.70 K/uL Basophils # (Auto) 0.04 0.00-0.20 K/uL Absolute Immature Granulocyte (auto 0.04 0-1 K/uL Nucleated Red Blood Cells 0.0 0.0-0.19 % Sodium Level 140 136-145 mmol/L Potassium Level 3.5 3.5-5.1 mmol/L Chloride Level 104 101-111 mmol/L Carbon Dioxide Level 25 21-32 mmol/L Blood Urea Nitrogen 18 7-18 mg/dL Creatinine 0.9 0.5-1.3 mg/dL Glomerular Filtration Rate Calc 98 >90 mL/min Random Glucose 167 H 70-105 mg/dL Total Calcium 9.0 8.5-10.1 mg/dL Phosphorus Level 3.8 2.5-4.9 mg/dL Magnesium Level 1.90 1.80-2.40 mg/dL Vancomycin Level Trough 15.5 # 10.0-20.0 UG/ML Prothrombin Time 10.8 9.6-11.6 SEC Prothromb Time International Ratio 1.00 0.85-1.15 Activated Partial Thromboplast Time 26.2 L 26.3-35.5 SEC Current Medications Medications (Trade) Dose Ordered Sig/Adria Route PRN Reason Start Time Stop Time Status Last Admin Dose Admin Acetaminophen (TYLenol 325MG TAB) 650 mg Q6H PRN PO FEVER/MILD PAIN LEVEL 1-3 02/01/24 21:00 03/02/24 20:59 Acetaminophen (TYLenol 650MG SUPPOSITORY) 650 mg Q6H PRN RC FEVER / MILD PAIN 1-3 IF NPO 02/01/24 21:00 03/02/24 20:59 Acetaminophen/ Hydrocodone Bitart (NORco 5/325MG) 1 tab Q6H PRN PO MODERATE PAIN (4-6) 02/01/24 21:00 02/06/24 20:59 Cefepime HCl (MAXipime 1 GM vial) 1 gm Q8H IVPB 02/02/24 03:00 02/04/24 18:33 DC 02/04/24 13:20 1 GM Cefepime HCl (MAXipime 1 GM vial) 1 gm Q8H IVPB 02/04/24 21:00 02/14/24 20:59 02/05/24 12:49 1 GM Docusate Sodium (COLace 100MG CAP) 100 mg BID PRN PO c 02/01/24 21:00 03/02/24 20:59 Enoxaparin Sodium (Lovenox) 40 mg DAILY SQ 02/02/24 09:00 03/03/24 08:59 02/03/24 08:41 40 MG Hydralazine HCl (APRESOLine 20MG INJ) 10 mg Q2H PRN IV SBP GREATER THAN 160 02/01/24 21:00 03/02/24 20:59 Hydrochlorothiazide (hydroCHLOROthiazide 25MG) 12.5 mg DAILY PO 02/03/24 09:00 03/04/24 08:59 02/04/24 09:27 12.5 MG Insulin Human Regular (humuLIN R 100 UNIT/ML 3ML) INSULIN SLIDING SCAL... ACHS SQ 02/01/24 21:00 03/02/24 20:59 02/04/24 20:56 6 UNIT Lactulose (Constulose 20gm/ 30ml Udcup) 20 gm Q6H PRN PO CONSTIPATION 02/01/24 21:00 03/02/24 20:59 Linagliptin (TradJENTA) 5 mg DAILY PO 02/03/24 09:00 03/04/24 08:59 02/04/24 09:26 5 MG Lisinopril (Prinivil 40mg) 40 mg DAILY PO 02/02/24 14:00 03/03/24 13:59 02/04/24 09:27 40 MG Magnesium Sulfate 50 ml @ 0 mls/hr PROTOCOL PRN IV MAGNESIUM PROTOCOL 02/02/24 11:00 03/03/24 10:59 02/05/24 06:44 10 MLS/HR Ondansetron HCl (zoFRAN 4MG INJ) 4 mg Q6H PRN IVP NAUSEA/VOMITING 02/01/24 21:00 03/02/24 20:59 Pantoprazole Sodium (PROTonix 40MG TAB) 40 mg DAILY PO 02/03/24 09:00 03/04/24 08:59 02/04/24 09:27 40 MG Piperacillin Sod/ Tazobactam Sod 50 ml @ 200 mls/hr STAT STAT IVPB 02/01/24 18:10 02/01/24 18:24 DC 02/01/24 18:52 200 MLS/HR Potassium Chloride 100 ml @ 100 mls/hr AD PRN IV POTASSIUM PROTOCOL 02/02/24 11:00 03/03/24 10:59 Potassium Chloride (K-Dur/Klor-Con 20meq) 20 meq AD PRN PO POTASSIUM PROTOCOL 02/02/24 11:00 03/03/24 10:59 02/05/24 06:43 20 MEQ Potassium Chloride (KCl 10% Elixir 20meq/15ml) 20 meq AD PRN PO POTASSIUM PROTOCOL 02/02/24 11:00 03/03/24 10:59 Temazepam (restORIL 15 MG CAP) 15 mg HS PRN PO INSOMNIA/SLEEP 02/01/24 21:00 03/02/24 20:59 Vancomycin HCl 250 ml @ 125 mls/hr Q12H IV 02/01/24 21:00 02/03/24 07:12 DC 02/02/24 19:33 125 MLS/HR Vancomycin HCl 250 ml @ 125 mls/hr Q12H IV 02/03/24 09:00 02/24/24 08:59 02/05/24 09:47 125 MLS/HR Vancomycin HCl (Vancomycin Protocol) 1 each AD IV 02/01/24 21:00 02/15/24 20:59 DIAGNOSTICS / RADIOLOGY: [ ] ASSESSMENT: Cellulitis of right foot and right lower extremity, with failed outpatient antibiotic therapy, POA Right toe diabetic foot ulcer/cellulitis, POA Fracture of the distal phalanx proximal aspect with possible intra-articular extension Acute dehydration, POA Acute kidney injury, GFR 69 Diabetes mellitus with hyperglycemia Uncontrolled hypertension Chronic problem list: Diabetes mellitus type 2, hypertension, left testicular removal Osteomyelitis of the right great toe PLAN: Admit patient to surgical floor. P.r.n. for: Pain management, nausea, vomiting, constipation, hypertension Vancomycin IV and cefepime IV continue Cardiology consulted Infectious disease consulted, appreciate recommendations Podiatry consulted, appreciate recommendations pharmacy laboratory technician procedure with possible intervention today Monitor renal and liver function. Monitor electrolytes and treat accordingly. DVT and GI prophylaxis. Disposition: Pending cath procedure, cardiology recommendations, ID recommendations MATTHEW PISANO MD Feb 05, 2024 13:07
--- NOTE | 2024-02-05 13:17 | PN ---
INFECTIOUS DISEASE PROGRESS NOTE Date of Service: Feb 05, 2024 SUBJECTIVE: This is a 58-year-old male patient who was seen and examined at bedside in room 316. Patient is awake, alert and oriented x3. Patient remains afebrile, temperature 97.9 and a WBC of 7.4. Continues on vancomycin IV every 12 hours and cefepime 1 g IV Q 8 hours. Patient is scheduled to undergo a peripheral angiogram today. Will continue to monitor patient. PHYSICAL EXAM EYES: Anicteric. Pupils equal and reactive. HENT: No oral thrush seen, moist Oral mucosa. NECK: Supple, no JVD or thyromegaly. LUNGS: Good air entry. No rales, no rhonchi. CARDIOVASCULAR: S1, S2 regular. No murmur heard. ABDOMEN: Soft, non tender, bowel sounds present, no organomegaly CENTRAL NERVOUS SYSTEM: Awake, alert, oriented x 3. SKIN: No rashes, no swelling. Right foot diabetic ulcer. LYMPHATICS: No peripheral lymphadenopathy. MUSCULOSKELETAL: No joint swelling, erythema or tenderness. EXTREMITIES: No cyanosis or clubbing. BACK: No deformity, no pressure ulcer. GENITOURINARY: No dysuria or hematuria. Vital Sign (Last 12 Hours) 02/05/24 02/05/24 02/05/24 02/05/24 04:44 08:00 08:00 12:00 Temp 98.1 97.9 97.9 Pulse 70 65 64 Resp 16 18 18 B/P (MAP) 138/76 128/78 139/55 Pulse Ox 96 95 95 96 O2 Delivery Room Air Room Air* Room Air O2 Flow Rate 0 FiO2 21 LABS: Laboratory: Test 02/05/24 11:37 02/05/24 04:39 02/04/24 20:15 02/04/24 10:05 Range/Units Whole Blood Glucose 225 #H 70-110 MG/DL White Blood Count 7.4 4.8-10.8 K/uL Red Blood Count 4.60 4.50-6.20 MIL/uL Hemoglobin 14.9 14.0-18.0 g/dL Hematocrit 42.9 42-54 % Mean Corpuscular Volume 93.3 79-99 fL Mean Corpuscular Hemoglobin 32.4 27.0-33.0 pg Mean Corpuscular Hemoglobin Concent 34.7 32.0-36.0 g/dL Red Cell Distribution Width 11.6 11.0-15.5 % Platelet Count 247 130-400 K/uL Mean Platelet Volume 9.8 7.5-10.5 fL Immature Granulocyte % (Auto) 0.5 0-1 % Neutrophils (%) (Auto) 71.2 40.0-77.0 % Lymphocytes (%) (Auto) 16.2 L 21.0-51.0 % Monocytes (%) (Auto) 7.7 3.0-13.0 % Eosinophils (%) (Auto) 3.9 0.0-8.0 % Basophils (%) (Auto) 0.5 0.0-5.0 % Neutrophils # (Auto) 5.3 1.8-7.7 K/uL Lymphocytes # (Auto) 1.2 1.0-4.8 K/uL Monocytes # (Auto) 0.6 0.1-1.0 K/uL Eosinophils # (Auto) 0.29 0.00-0.70 K/uL Basophils # (Auto) 0.04 0.00-0.20 K/uL Absolute Immature Granulocyte (auto 0.04 0-1 K/uL Nucleated Red Blood Cells 0.0 0.0-0.19 % Sodium Level 140 136-145 mmol/L Potassium Level 3.5 3.5-5.1 mmol/L Chloride Level 104 101-111 mmol/L Carbon Dioxide Level 25 21-32 mmol/L Blood Urea Nitrogen 18 7-18 mg/dL Creatinine 0.9 0.5-1.3 mg/dL Glomerular Filtration Rate Calc 98 >90 mL/min Random Glucose 167 H 70-105 mg/dL Total Calcium 9.0 8.5-10.1 mg/dL Phosphorus Level 3.8 2.5-4.9 mg/dL Magnesium Level 1.90 1.80-2.40 mg/dL Vancomycin Level Trough 15.5 # 10.0-20.0 UG/ML Prothrombin Time 10.8 9.6-11.6 SEC Prothromb Time International Ratio 1.00 0.85-1.15 Activated Partial Thromboplast Time 26.2 L 26.3-35.5 SEC ASSESSMENT: Right great toe osteomyelitis. PVD. Right foot Diabetic ulcer. Wound Infection with Enterobacter cloacae and Enterococcus faecalis Cellulitis. Hypertension. PLAN: Continue cefepime IV. Continue vancomycin per pharmacy protocol. Continue GI prophylaxis. Continue pain management. Continue monitoring glucose levels. Patient is scheduled for a peripheral angiogram for today. This case was reviewed and discussed with my supervising physician and the above assessment and plan was formulated and agreed upon. ATTESTATION BY PHYSICIAN I have seen and examined the patient. I reviewed the documentation, medical decision making, and treatment plan as noted by the mid-level provider above. I agree with the findings and plan of care. ESTEBAN NG MD, [facility] Feb 05, 2024 13:17
--- NOTE | 2024-02-05 16:00 | NUR ---
Did not perform pian assessment. Patient was in a procedure.
[2024-02-05] MEDS ORDERED: LIDOCAINE HCL 400MG/20ML VIAL ONE (16:24)
[2024-02-05] MEDS ORDERED: SODIUM BICARB 50MEQ 50ML VIAL 50 ML ONE (16:24)
[2024-02-05] MEDS ORDERED: IODIXANOL 320 MG/ML 100 ML VIAL ONE (16:25)
[2024-02-05] MEDS ORDERED: HEParin-NS 1,000 UNIT/500 ML 1,000 ML IV ONE (16:25)
[2024-02-05] MEDS ORDERED: HEParin 10,000 UNIT/10ML (1,000 UNIT/ML) VIAL ONE (16:25)
[2024-02-05] MEDS ORDERED: NITROGLYCERIN 50MG VIAL ONE (16:35)
[2024-02-05] MEDS ORDERED: MIDAZOLAM HCL 1 MG/ML 2ML VIAL ONE (16:46)
[2024-02-05] MEDS ORDERED: FENTanyl CITRate PF 50 MCG/1 ML 2ML VIAL ONE (16:46)
[2024-02-05] MEDS ORDERED: PRASUGREL HCL 10 MG TABLET ONE (17:28)
[2024-02-05] MEDS ORDERED: ASPIRIN 325MG EC TAB PO ONE (17:34)
[2024-02-05] MEDS ORDERED: 0.9%NACL 1000ML 1,000 ML IV SCH (18:30)
--- NOTE | 2024-02-05 18:30 | NUR ---
Received patient from laundry laborer. Patient is alert, oriented in person time and place. No signs or symptoms of respiratory distress noted. Femoral and dorsalis pedis pulses present on both legs. Bowel sounds present and active on all four abdominal quadrants. Left femoral dressing dry and clean. No signs of bleeding, cyanosis, numbness or pain. Educated patient and spouse of plan of care, pain management, home medication and doctors restrictions. Patient and both verbalized understanding. Started with post op vital signs.
--- NOTE | 2024-02-05 18:33 | PRN ---
Abdominal Aortogram With Pelvic Runoff, Right Lower Extremity Digital Subtraction Arteriogram, Right Anterior Tibial Angioplasty With Drug Coated Balloon And Dionisio To Focal Anterior Tibial Dissection Indication: Nitin Stage Five Peripheral Arterial Disease Technique: Patient was brought to the lab in a fasting state after informed consent and sedated with 1 mg Versed and 50 mcg fentanyl. He did not feel any sedation from this and it appeared the IV was infiltrated so a 2nd IV was started and an additional 1 mg Versed and 50 mcg fentanyl was administered. Under local anesthesia with 1% lidocaine using micropuncture technique under fluoroscopic and ultrasound guidance the left common femoral artery was punctured anteriorly and a six Kazakh sheath was inserted. An Omni flush catheter was positioned in the distal abdominal aorta and an abdominal aortogram with pelvic runoff was obtained by digital subtraction. The Omni flush was then repositioned in the right SFA and digital subtraction arteriogram were obtained sequentially to the foot. An exchange was made for a six Kazakh 90 cm sheath which was positioned in the right popliteal and the right anterior tibial was wired with a 300 cm [place] guidewire. A 120 x 3 mm chocolate balloon was used to cross the diffuse disease from the proximal calf to the midpoint of the segment between the ankle and calf. A 14 atmosphere inflation was performed and results were inspected angiographically. We exchanged for a 2.5 x 40 mm chocolate balloon with which we dilated the distal segment of disease. Runoff was substantially enhanced and we then exchanged for a 4 x 150 mm DCP with which we applied low three atmosphere pressure to the entire length of the treated segment. Runoff was less impressive after this was completed and so we exchanged for a three by 40 mm drug-eluting stent with which we stented the midportion of the treated segment where a dissection appeared to be limiting flow. This resulted in faith of normal flow. Final digital subtraction arteriogram were obtained in orthogonal projections and the sheath was removed. Hemostasis was obtained by use of Perclose with excellent hemostasis and no complications. Patient received 90 mL contrast, 60 mg prasugrel, 325 mg aspirin, and weight based heparin for this procedure. Results: The distal abdominal aorta and the pelvic vessels are free of disease. The common femoral, profunda femoral, and superficial femoral on the right side are free of disease, as is the popliteal. The tibioperoneal and posterior tibial are free of disease and the tibioperoneal and posterior tibial are large diameter vessels with brisk flow to the foot; the [employer] reaches the plantar arch. The peroneal is widely patent to a point about 6 cm above the ankle, where it is totally occluded. The right anterior tibial is notable for a segmental 40% proximal narrowing, then commencing in proximal calf there is a diffusely diseased segment that extends all the way through the calf, to a point about midway between the calf and the ankle. This segment is about 140 mm in length and diffusely narrowed by 90-95% with KRISTOPHER one flow to the foot. Interventional Results: The diffusely diseased segment in the anterior tibial is reduced to less than 10% residual and after tacking the dissection there was brisk flow all the way to the plantar arch and digital vessels. Conclusions: Right peroneal disease is not relevant and is limited to the distal end of the vessel. Right anterior tibial disease was severe and diffuse and excellent results are achieved with revascularization using DCB and drug- eluting stent. CHEN CAO MD Feb 05, 2024 18:33
--- NOTE | 2024-02-05 20:26 | PN ---
SUBJECTIVE: The patient is a very pleasant 58-year-old diabetic, [place] male who was seen on 02/05/2024. He is currently afebrile at 98.6, pulse 63, respiration 18, blood pressure 136/68. White count 7.4, H and H 14.9 and 42.9, platelets 247. The patient is being followed by Infection Disease and Cardiology. Cardiology is planning evaluation for revascularization procedure on the right. He is currently receiving cefepime and vancomycin. Cultures are growing Prevotella species, Enterobacter cloacae and Enterococcus faecalis. PAST MEDICAL HISTORY: Significant for diabetes, hypertension, peripheral vascular disease and peripheral neuropathy. REVIEW OF SYSTEMS: CONSTITUTIONAL: No chills, no fevers, no night sweats, no nausea or vomiting, no diarrhea. HEENT: No problems with eyes, ears, nose or throat. CARDIOVASCULAR: He has peripheral vascular disease per arterial Dopplers and CT angiography, being followed by the [facility]. CARDIOVASCULAR: Having no current chest pain. RESPIRATORY: No shortness of breath. ENDOCRINE: Diabetes. PSYCHIATRIC: Denied any depression. MUSCULOSKELETAL: Bunions and hammertoes. He has had an ingrown toenail removed from the right great toe along the medial border. INTEGUMENT: He has an ulcer to the plantar aspect of his right great toe. OBJECTIVE: Exam shows he has palpable anterior tibial pulse, nonpalpable posterior tibial pulse. Ulcer in plantar medial aspect of right great toe, 5 x 10 x 4 mm. He has an ingrown toenail surgery site medial border of the right hallux nail, it is clean and granular. ASSESSMENT: Diabetes, peripheral vascular disease, peripheral neuropathy, status post removal of right great toe ingrown toenail medial border, status post debridement of a plantar ulcer to the right great toe, osteomyelitis, base of the distal phalanx fracture. Arterial Doppler studies and CT angiography suggests peripheral vascular disease. PLAN: We will continue with the recommendations by Cardiology and Infectious Disease. The patient is receiving IV vancomycin and IV cefepime. We are awaiting the results of his cultures and sensitivities. We are awaiting possible revascularization procedure by the Cardiology Service. We will continue to follow the patient closely while in-house. Continue with local wound care and IV antibiotics. TID: [id number] RECEIPT: [id number]
[2024-02-06] VITALS (9 sets, daily range): BP systolic 130–162; BP diastolic 68–84; PULSE 57–73; RESP 18–20; TEMP 98–98.7; O2SAT 97–98
[2024-02-06] MEDS: PRASUGREL HCL 10 MG TABLET PO SCH (08:25)
[2024-02-06] MEDS: ASPIRIN 81MG CHEW TAB PO SCH (08:26)
--- NOTE | 2024-02-06 08:45 | PN ---
Patient offers no symptomatic complaints. No hematoma, no ecchymosis, both feet are warm and pink. Osteomyelitis has been identified, and Infectious Disease input is pending. Successful revascularization, no further cardiac input required at this time. I will sign off. Patient should follow up with Dr. Reeves within two weeks of discharge. Vitals/Labs Vital Signs Date Time Temp Pulse Resp B/P (MAP) Pulse Ox O2 Delivery O2 Flow Rate FiO2 02/06/24 07:57 98.4 65 18 140/80 97 Room Air 02/05/24 20:00 0 21 Medications Current Medications Piperacillin Sod/ Tazobactam Sod 50 ml @ 200 mls/hr STAT STAT IVPB Last administered on 02/01/24at 18:52; Start 02/01/24 at 18:10; Stop 02/01/24 at 18:24; Status DC Vancomycin HCl 250 ml @ 125 mls/hr ONCE ONCE IV Last administered on 02/01/24at 19:22; Start 02/01/24 at 18:30; Stop 02/01/24 at 20:29; Status DC Sodium Chloride 2,640 ml @ 880 mls/hr ONCE ONCE IV Last administered on 02/01/24at 18:53; Start 02/01/24 at 18:30; Stop 02/01/24 at 21:29; Status DC Ondansetron HCl 4 mg ONCE ONCE IVP Last administered on 02/01/24at 20:21; Start 02/01/24 at 20:00; Stop 02/01/24 at 20:01; Status DC Morphine Sulfate 4 mg ONCE ONCE IVP Last administered on 02/01/24at 20:21; Start 02/01/24 at 20:00; Stop 02/01/24 at 20:01; Status DC Vancomycin HCl 1 each AD IV; Start 02/01/24 at 21:00; Stop 02/15/24 at 20:59 Enoxaparin Sodium 40 mg DAILY SQ Last administered on 02/06/24at 08:27; Start 02/02/24 at 09:00; Stop 03/03/24 at 08:59 Acetaminophen 650 mg Q6H PRN PO; Start 02/01/24 at 21:00; Stop 03/02/24 at 20:59 Acetaminophen 650 mg Q6H PRN RC; Start 02/01/24 at 21:00; Stop 03/02/24 at 20:59 Acetaminophen/ Hydrocodone Bitart 1 tab Q6H PRN PO; Start 02/01/24 at 21:00; Stop 02/06/24 at 20:59 Lactulose 20 gm Q6H PRN PO; Start 02/01/24 at 21:00; Stop 03/02/24 at 20:59 Docusate Sodium 100 mg BID PRN PO; Start 02/01/24 at 21:00; Stop 03/02/24 at 20:59 Temazepam 15 mg HS PRN PO; Start 02/01/24 at 21:00; Stop 03/02/24 at 20:59 Ondansetron HCl 4 mg Q6H PRN IVP; Start 02/01/24 at 21:00; Stop 03/02/24 at 20:59 Hydralazine HCl 10 mg Q2H PRN IV; Start 02/01/24 at 21:00; Stop 03/02/24 at 20:59 Insulin Human Regular INSULIN SLIDING SCAL... ACHS SQ Last administered on 02/04/24at 20:56; Start 02/01/24 at 21:00; Stop 03/02/24 at 20:59 Cefepime HCl 1 gm Q8H IVPB Last administered on 02/04/24at 13:20; Start 02/02/24 at 03:00; Stop 02/04/24 at 18:33; Status DC Vancomycin HCl 250 ml @ 125 mls/hr Q12H IV Last administered on 02/02/24at 19:33; Start 02/01/24 at 21:00; Stop 02/03/24 at 07:12; Status DC Magnesium Sulfate 50 ml @ 0 mls/hr PROTOCOL PRN IV Last administered on 02/05/24at 06:44; Start 02/02/24 at 11:00; Stop 03/03/24 at 10:59 Potassium Chloride 100 ml @ 100 mls/hr AD PRN IV; Start 02/02/24 at 11:00; Stop 03/03/24 at 10:59 Potassium Chloride 20 meq AD PRN PO; Start 02/02/24 at 11:00; Stop 03/03/24 at 10:59 Potassium Chloride 20 meq AD PRN PO Last administered on 02/05/24at 06:43; Start 02/02/24 at 11:00; Stop 03/03/24 at 10:59 Lisinopril 40 mg DAILY PO Last administered on 02/06/24at 08:27; Start 02/02/24 at 14:00; Stop 03/03/24 at 13:59 Hydrochlorothiazide 12.5 mg DAILY PO Last administered on 02/06/24at 08:26; Start 02/03/24 at 09:00; Stop 03/04/24 at 08:59 Pantoprazole Sodium 40 mg DAILY PO Last administered on 02/06/24at 08:26; Start 02/03/24 at 09:00; Stop 03/04/24 at 08:59 Linagliptin 5 mg DAILY PO Last administered on 02/06/24at 08:25; Start 02/03/24 at 09:00; Stop 03/04/24 at 08:59 Vancomycin HCl 250 ml @ 125 mls/hr Q12H IV Last administered on 02/05/24at 22:02; Start 02/03/24 at 09:00; Stop 02/24/24 at 08:59 Diphtheria/ Tetanus/Acell Pertussis 0.5 ml ONCE ONCE IM Last administered on 02/03/24at 13:13; Start 02/03/24 at 12:00; Stop 02/03/24 at 12:11; Status DC Iohexol 75 ml STK-MED ONCE IV; Start 02/03/24 at 12:23; Stop 02/03/24 at 12:23; Status DC Iohexol 50 ml STK-MED ONCE IV; Start 02/03/24 at 12:23; Stop 02/03/24 at 12:24; Status DC Cefepime HCl 1 gm Q8H IVPB Last administered on 02/06/24at 05:42; Start 02/04/24 at 21:00; Stop 02/14/24 at 20:59 Lidocaine HCl 20 ml STK-MED ONCE .ROUTE; Start 02/05/24 at 16:24; Stop 02/05/24 at 16:25; Status DC Sodium Bicarbonate 50 ml @ As Directed STK-MED ONCE .ROUTE; Start 02/05/24 at 16:24; Stop 02/05/24 at 16:25; Status DC Iodixanol 100 ml STK-MED ONCE .ROUTE; Start 02/05/24 at 16:25; Stop 02/05/24 at 16:25; Status DC Heparin Sodium (Porcine) 10,000 unit STK-MED ONCE .ROUTE; Start 02/05/24 at 16:25; Stop 02/05/24 at 16:25; Status DC Heparin Sodium/ Sodium Chloride 1,000 ml @ As Directed STK-MED ONCE IV; Start 02/05/24 at 16:25; Stop 02/05/24 at 16:25; Status DC Nitroglycerin 50 mg STK-MED ONCE .ROUTE; Start 02/05/24 at 16:35; Stop 02/05/24 at 16:35; Status DC Fentanyl Citrate 100 mcg STK-MED ONCE .ROUTE; Start 02/05/24 at 16:46; Stop 02/05/24 at 16:46; Status DC Midazolam HCl 2 mg STK-MED ONCE .ROUTE; Start 02/05/24 at 16:46; Stop 02/05/24 at 16:46; Status DC Prasugrel 10 mg STK-MED ONCE .ROUTE; Start 02/05/24 at 17:28; Stop 02/05/24 at 17:28; Status DC Aspirin 325 mg STK-MED ONCE PO; Start 02/05/24 at 17:34; Stop 02/05/24 at 17:34; Status DC Aspirin 81 mg DAILY PO Last administered on 02/06/24at 08:26; Start 02/06/24 at 09:00; Stop 03/07/24 at 08:59 Prasugrel 10 mg DAILY PO Last administered on 02/06/24at 08:25; Start 02/06/24 at 09:00; Stop 03/07/24 at 08:59 Sodium Chloride 1,000 ml @ 150 mls/hr AD IV; Start 02/05/24 at 18:30; Stop 02/06/24 at 00:29; Status DC CHEN CAO MD Feb 06, 2024 08:45
[2024-02-06] MEDS ORDERED: PRAS10TA9 PO (08:49)
[2024-02-06] MEDS ORDERED: ASPI-1443 PO (08:49)
[2024-02-06 08:58] LABS: BASOPHILS # (AUTO) 0.04 K/uL (0.00-0.20); BASOPHILS % (AUTO) 0.6 % (0.0-5.0); EOSINOPHILS # (AUTO) 0.27 K/uL (0.00-0.70); EOSINOPHILS % (AUTO) 3.8 % (0.0-8.0); HEMATOCRIT 41.4 % (42-54); IMMATURE GRANULOCYTE ABSOLUTE 0.04 K/uL (0-1); LYMPHOCYTES # (AUTO) 1.3 K/uL (1.0-4.8); LYMPHOCYTES % (AUTO) 17.9 % (21.0-51.0); MEAN CORPUSCULAR HEMOGLOBIN 32.7 pg (27.0-33.0); MEAN CORPUSCULAR HGB CONC 35.3 g/dL (32.0-36.0); MEAN CORPUSCULAR VOLUME 92.8 fL (79-99); MONOCYTES # (AUTO) 0.5 K/uL (0.1-1.0); MONOCYTES % (AUTO) 7.6 % (3.0-13.0); NEUTROPHILS # (AUTO) 4.9 K/uL (1.8-7.7); NEUTROPHILS % (AUTO) 69.5 % (40.0-77.0); PLATELET COUNT (AUTO) 247 K/uL (130-400); RED BLOOD CELL COUNT(AUTO) 4.46 MIL/uL (4.50-6.20); RED CELL DISTRIBUTION WIDTH 11.5 % (11.0-15.5); WHITE BLOOD COUNT (AUTO) 7.1 K/uL (4.8-10.8)
[2024-02-06 09:09] LABS: CREATININE 0.9 mg/dL (0.5-1.3); POTASSIUM 3.5 mmol/L (3.5-5.1); VANCOMYCIN TROUGH 13.9 UG/ML (10.0-20.0)
--- NOTE | 2024-02-06 11:30 | NUR ---
BLOOD GLUCOSE AT 202. COVERED WITH 6 UNITS OF HUMULIN R SUBCUTANEOUS; FOLLOWING INSULIN SCALE.
[2024-02-06 13:59] LABS: INR 1.04 (0.85-1.15); PROTHROMBIN TIME 11.2 SEC (9.6-11.6)
[2024-02-06 14:01] LABS: PARTIAL THROMBOPLASTIN TIME 27.1 SEC (26.3-35.5)
--- NOTE | 2024-02-06 14:18 | PN ---
[facility] PROGRESS NOTE Date of Service: Feb 06, 2024 Time of Service: : SUBJECTIVE: 02/01: [ Edvin Callahan is a 58-year-old male who approximately two months ago tripped and traumatizes right great toe. He did not seek medical attention at the time. Over the past week he noticed increased redness and some pus coming out of his right great toenail and so he sought medical attention here at [facility]. He is a diabetic who does not know what his blood sugars are A1c usually run. The nurse mentioned that his last sugar checked was [address] Kaiser the room inspector has already been by and evaluated the patient and dressed his foot an MRI has been ordered and done. 02/02: Patient went down for bilateral CT angio of the aorta with runoffs and is back. He states he felt warm when they injected the iodine contrast. He denies any chest pain or shortness of breath. No nausea or vomiting or diarrhea. His appetite is intact he is urinating and defecating normally. 02/03 patient seen at bedside, no acute events overnight. Patient has been evaluated by cardiology who is planning a labor and delivery registered nurse procedure with possible intervention, will follow up post procedure. Lab holiday today. 02/04 patient seen at bedside, no acute events overnight. Pending labor and delivery registered nurse procedure sometime today, we will follow up with Cardiology recommendations. He has been afebrile, hemodynamically stable saturating well on room air. Labs are unremarkable. Continue with empiric antibiotics. 02/05 patient seen at bedside, no acute events overnight. Patient taken to labor and delivery registered nurse yesterday with successful revascularization procedure performed by Pradip ibrahim, tolerated the procedure well see the op note for more details. Patient will need six weeks of IV antibiotics per Infectious Disease, patient will need to go to their PCP for a referral to the [facility], subclinical we will not be open until Sunday after the holiday, patient will need to stay in the hospital over the weekend. We will order PICC line placement in the meantime and continue to monitor the patient's progress. REVIEW OF SYSTEMS 12-point ROS reviewed with the patient. All pertinent positives mentioned above. Otherwise negative, non-pertinent, or noncontributory. PHYSICAL EXAM GENERAL APPEARANCE: The patient is awake, alert, and oriented, in no acute cardiopulmonary distress. NEUROLOGICAL: Cranial nerves II-XII grossly intact. Motor is 5/5 in bilateral upper and lower extremities proximal to distal. No sensory deficits. HEENT: Face is symmetric. Pupils are equal and reactive. Extraocular movements are intact. NECK: Supple. No JVD. No thyromegaly. No submental, submandibular, pre- /postauricular, occipital or supraclavicular lymphadenopathy. CHEST: Normal chest expansion. No Telemetry. LUNGS: Absence of any rales, rhonchi or any wheezing. CARDIOVASCULAR: Regular. S1 and S2 normal. No appreciable rubs, murmurs or gallops. ABDOMEN: Soft, nontender, and nondistended. There is no rebound, voluntary guarding, or rigidity. : Deferred. No Obrien. EXTREMITIES: Non-edematous and not cyanotic. No clubbing. Good capillary refill. Right toe and foot is wrapped in both Vaseline gauze dressing and then an external dry Mainor bandage. Second toe of the right foot shows delayed capilla ry refill nonpalpable pulses of right and left dorsalis pedis noted nonpalpable popliteal on the right palpable on the left. SKIN: No skin breakdown. Lower leg edema has resolved Vital Signs (last 8hr) Date Time Temp Pulse Resp B/P (MAP) Pulse Ox O2 Delivery O2 Flow Rate FiO2 02/06/24 12:00 98.2 70 20 162/79 98 Room Air 02/06/24 07:57 98.4 65 18 140/80 97 Room Air LABS: Laboratory: Test 02/06/24 11:37 02/06/24 08:38 02/05/24 17:35 02/05/24 04:39 Range/Units Whole Blood Glucose 202 H 70-110 MG/DL White Blood Count 7.1 4.8-10.8 K/uL Red Blood Count 4.46 L 4.50-6.20 MIL/uL Hemoglobin 14.6 14.0-18.0 g/dL Hematocrit 41.4 L 42-54 % Mean Corpuscular Volume 92.8 79-99 fL Mean Corpuscular Hemoglobin 32.7 27.0-33.0 pg Mean Corpuscular Hemoglobin Concent 35.3 32.0-36.0 g/dL Red Cell Distribution Width 11.5 11.0-15.5 % Platelet Count 247 130-400 K/uL Mean Platelet Volume 9.6 7.5-10.5 fL Immature Granulocyte % (Auto) 0.6 0-1 % Neutrophils (%) (Auto) 69.5 40.0-77.0 % Lymphocytes (%) (Auto) 17.9 L 21.0-51.0 % Monocytes (%) (Auto) 7.6 3.0-13.0 % Eosinophils (%) (Auto) 3.8 0.0-8.0 % Basophils (%) (Auto) 0.6 0.0-5.0 % Neutrophils # (Auto) 4.9 1.8-7.7 K/uL Lymphocytes # (Auto) 1.3 1.0-4.8 K/uL Monocytes # (Auto) 0.5 0.1-1.0 K/uL Eosinophils # (Auto) 0.27 0.00-0.70 K/uL Basophils # (Auto) 0.04 0.00-0.20 K/uL Absolute Immature Granulocyte (auto 0.04 0-1 K/uL Nucleated Red Blood Cells 0.0 0.0-0.19 % Sodium Level 137 136-145 mmol/L Potassium Level 3.5 3.5-5.1 mmol/L Chloride Level 102 101-111 mmol/L Carbon Dioxide Level 25 21-32 mmol/L Blood Urea Nitrogen 17 7-18 mg/dL Creatinine 0.9 0.5-1.3 mg/dL Glomerular Filtration Rate Calc 98 >90 mL/min Random Glucose 171 H 70-105 mg/dL Total Calcium 8.6 8.5-10.1 mg/dL Vancomycin Level Trough 13.9 10.0-20.0 UG/ML Activated Clotting Time 265 H 100-180 SEC Phosphorus Level 3.8 2.5-4.9 mg/dL Magnesium Level 1.90 1.80-2.40 mg/dL Current Medications Medications (Trade) Dose Ordered Sig/Adria Route PRN Reason Start Time Stop Time Status Last Admin Dose Admin Acetaminophen (TYLenol 325MG TAB) 650 mg Q6H PRN PO FEVER/MILD PAIN LEVEL 1-3 02/01/24 21:00 03/02/24 20:59 Acetaminophen (TYLenol 650MG SUPPOSITORY) 650 mg Q6H PRN RC FEVER / MILD PAIN 1-3 IF NPO 02/01/24 21:00 03/02/24 20:59 Acetaminophen/ Hydrocodone Bitart (NORco 5/325MG) 1 tab Q6H PRN PO MODERATE PAIN (4-6) 02/01/24 21:00 02/06/24 20:59 Aspirin (Aspirin 81mg Chew Tab) 81 mg DAILY PO 02/06/24 09:00 03/07/24 08:59 02/06/24 08:26 81 MG Cefepime HCl (MAXipime 1 GM vial) 1 gm Q8H IVPB 02/02/24 03:00 02/04/24 18:33 DC 02/04/24 13:20 1 GM Cefepime HCl (MAXipime 1 GM vial) 1 gm Q8H IVPB 02/04/24 21:00 02/14/24 20:59 02/06/24 05:42 1 GM Docusate Sodium (COLace 100MG CAP) 100 mg BID PRN PO c 02/01/24 21:00 03/02/24 20:59 Enoxaparin Sodium (Lovenox) 40 mg DAILY SQ 02/02/24 09:00 03/03/24 08:59 02/06/24 08:27 40 MG Hydralazine HCl (APRESOLine 20MG INJ) 10 mg Q2H PRN IV SBP GREATER THAN 160 02/01/24 21:00 03/02/24 20:59 Hydrochlorothiazide (hydroCHLOROthiazide 25MG) 12.5 mg DAILY PO 02/03/24 09:00 03/04/24 08:59 02/06/24 08:26 12.5 MG Insulin Human Regular (humuLIN R 100 UNIT/ML 3ML) INSULIN SLIDING SCAL... ACHS SQ 02/01/24 21:00 03/02/24 20:59 02/04/24 20:56 6 UNIT Lactulose (Constulose 20gm/ 30ml Udcup) 20 gm Q6H PRN PO CONSTIPATION 02/01/24 21:00 03/02/24 20:59 Linagliptin (TradJENTA) 5 mg DAILY PO 02/03/24 09:00 03/04/24 08:59 02/06/24 08:25 5 MG Lisinopril (Prinivil 40mg) 40 mg DAILY PO 02/02/24 14:00 03/03/24 13:59 02/06/24 08:27 40 MG Magnesium Sulfate 50 ml @ 0 mls/hr PROTOCOL PRN IV MAGNESIUM PROTOCOL 02/02/24 11:00 03/03/24 10:59 02/05/24 06:44 10 MLS/HR Ondansetron HCl (zoFRAN 4MG INJ) 4 mg Q6H PRN IVP NAUSEA/VOMITING 02/01/24 21:00 03/02/24 20:59 Pantoprazole Sodium (PROTonix 40MG TAB) 40 mg DAILY PO 02/03/24 09:00 03/04/24 08:59 02/06/24 08:26 40 MG Piperacillin Sod/ Tazobactam Sod 50 ml @ 200 mls/hr STAT STAT IVPB 02/01/24 18:10 02/01/24 18:24 DC 02/01/24 18:52 200 MLS/HR Potassium Chloride 100 ml @ 100 mls/hr AD PRN IV POTASSIUM PROTOCOL 02/02/24 11:00 03/03/24 10:59 Potassium Chloride (K-Dur/Klor-Con 20meq) 20 meq AD PRN PO POTASSIUM PROTOCOL 02/02/24 11:00 03/03/24 10:59 02/05/24 06:43 20 MEQ Potassium Chloride (KCl 10% Elixir 20meq/15ml) 20 meq AD PRN PO POTASSIUM PROTOCOL 02/02/24 11:00 03/03/24 10:59 Prasugrel (Effient 10mg) 10 mg DAILY PO 02/06/24 09:00 03/07/24 08:59 02/06/24 08:25 10 MG Sodium Chloride 1,000 ml @ 150 mls/hr AD IV 02/05/24 18:30 02/06/24 00:29 DC Temazepam (restORIL 15 MG CAP) 15 mg HS PRN PO INSOMNIA/SLEEP 02/01/24 21:00 03/02/24 20:59 Vancomycin HCl 250 ml @ 125 mls/hr Q12H IV 02/01/24 21:00 02/03/24 07:12 DC 02/02/24 19:33 125 MLS/HR Vancomycin HCl 250 ml @ 125 mls/hr Q12H IV 02/03/24 09:00 02/24/24 08:59 02/06/24 10:12 125 MLS/HR Vancomycin HCl (Vancomycin Protocol) 1 each AD IV 02/01/24 21:00 12/6/24 20:59 DIAGNOSTICS / RADIOLOGY: [ ] ASSESSMENT: Cellulitis of right foot and right lower extremity, with failed outpatient antibiotic therapy, POA Right toe diabetic foot ulcer/cellulitis, POA Fracture of the distal phalanx proximal aspect with possible intra-articular ext ension Acute dehydration, POA Acute kidney injury, GFR 69 Diabetes mellitus with hyperglycemia Uncontrolled hypertension Diabetes mellitus type 2, hypertension, left testicular removal Osteomyelitis of the right great toe PLAN: Continue Vancomycin IV and cefepime IV continue Cardiology consulted Infectious disease consulted, appreciate recommendations Podiatry consulted, appreciate recommendations PICC line to be placed Pt will need 6 weeks IV antibiotic therapy Monitor renal and liver function. Monitor electrolytes and treat accordingly. DVT and GI prophylaxis. Disposition: Pending PICC placement, pt likely discharge on Sunday as he will need to see PCP for referral to [facility] and [facility] will be closed until Sunday MATTHEW PISANO MD Feb 06, 2024 14:18
--- NOTE | 2024-02-06 15:50 | NUR ---
OBTAINED CONSENT FOR PICC LINE PLACEMENT.
--- NOTE | 2024-02-06 16:30 | NUR ---
BLOOD GLUCOSE AT 200. COVERED WITH 4 UNITS OF HUMULIN R SUBCUTANEOUS; FOLLOWING INSULIN SCALE.
--- NOTE | 2024-02-06 16:52 | NUR ---
PICC LINE INSERTION 5FR 2 LUMEN PICC LINE INSERTED TO RIGHT UPPER ARM BASILIC VEIN USING STERILE TECHNIQUE. ULTRASOUND GUIDED USING MST. INTERNAL CATHETER LENGTH: 35CM EXTERNAL CATHETER LENGTH: 0CM. (+) CON RIVERA. CHEST XRAY OBTAINED. PLEASE REPORT RESULTS TO MD FOR OKAY TO USE. PICC LINE CARE: -PERFORM HAND HYGIENE, WEAR GLOVES, SCRUB THE HUB FOR 15 SECONDS BEFORE EVERY ACCESS. -FLUSH BOTH LUMENS WITH 10ML NS FLUSH EVERY 12 HOURS IF LINE IS NOT IN USE AND CLAMP AFTER EVERY ACCESS. -CHANGE PICC LINE DRESSING, STATLOCK, AND PORT CAPS USING STERILE TECHNIQUE EVERY 7 DAYS AND PRN IF SOILED OR PEELING OFF.
--- NOTE | 2024-02-06 17:08 | NUR ---
ALEXIS SANCHEZ SPOKE TO DR. Anderson REGARDING IV ABX. SAID WOULD NEED IV ABX. SEND TO [facility]. ISMA SPOKE TO PATIENT. XUAN SIGNED. PACKET SENT. RECEIVED EMAIL AND CALL FROM [facility]. SAID PATIENT HAD BEEN ASSIGNED TO MD BUT THAT HE HAS NEVER BEEN TO MD. SO OFFICE DID NOT FEEL COMFORTABLE STARTING PROCESS FOR AUTH FOR [facility]. AT THIS POINT WOULD NEED TO FOLLOW UP AT PCP CLINIC TO BE SEEN THEN HAVE THEM SET UP AUTH. OR THEY CAN TRY TO SEE IF DR. LUU WILL TAKE PATIENT BUT PATIENT WOULD NEED TO CALL INSURANCE TO SEE IF THEY CAN MAKE HIM PRIMARY. DR. LUU OFFICE DUE TO HOLIDAY WILL NOT BE OPEN TILL SUNDAY TO SEE IF CAN SET UP WITH HIM IF PATIENT AGREES WITH CHANGING PCP. Addendum: 02/06/24 at 1717 by NEGAR ABEBE RN CM Amended: Links added.
[2024-02-06] MEDS: ZOSYN 3.375GM +NS 50ML IV SCH (17:13)
--- NOTE | 2024-02-06 17:26 | HMCIMG ---
CHEST 1VW REASON: PICCLINE VERIFICATION PLACEMENT COMPARISON: None. FINDINGS: Single view of the chest was obtained. Lungs are clear. Heart size is normal. There is no pulmonary vascular congestion. Mediastinum and bony thorax appear unremarkable. IMPRESSION: 1. Normal chest x-ray. 2. There is a right-sided PICC line with tip in superior vena cava.
--- NOTE | 2024-02-06 17:47 | NUR ---
PICC LINE OK TO USE PER DR. NG ORDERS.
--- NOTE | 2024-02-06 21:31 | PN ---
DATE OF SERVICE: 02/06/2024. INFECTIOUS DISEASE FOLLOWUP NOTE SUBJECTIVE: The patient is seen and examined at bedside. No fever, no chills. No nausea or vomiting. No abdominal pain. Tolerating antibiotic. No palpitation or orthopnea. No depression. No suicidal ideation. No heat or cold intolerance. No dysuria or hematuria. PHYSICAL EXAMINATION: VITAL SIGNS: Temperature today 97.5. EYES: No icterus. Pupils equal and reactive. HENT: No oral thrush seen. Moist oral mucosa. NECK: Supple, no JVD or thyromegaly. LUNGS: Good air entry. No rales, no rhonchi. CARDIOVASCULAR: S1, S2 regular. No murmur heard. ABDOMEN: Obese, soft, and nontender. Bowel sounds present. CENTRAL NERVOUS SYSTEM: Awake, alert, and oriented x 3. No focal deficits. SKIN: No rashes, no itchiness. LYMPHATIC: There is right inguinal lymphadenopathy. BACK: No deformity, no pressure ulcer. EXTREMITIES: Ulcer involving the right great toe. ASSESSMENT: * Right great toe osteomyelitis. * Diabetic foot ulcer. * Polymicrobial wound infection. * Peripheral vascular disease. * Obesity. * Hypertension. PLAN: * Continue pain management. * Continue wound care. * Continue ____. * Continue GI prophylaxis. * Continue dialysis. * Monitor electrolytes. * The patient will follow up closely. TID: [id number] RECEIPT: [id number]
[2024-02-07] VITALS (7 sets, daily range): BP systolic 115–159; BP diastolic 64–86; PULSE 66–82; RESP 18–20; TEMP 98.2–98.9; O2SAT 98
[2024-02-07 04:42] LABS: BASOPHILS # (AUTO) 0.03 K/uL (0.00-0.20); BASOPHILS % (AUTO) 0.3 % (0.0-5.0); EOSINOPHILS # (AUTO) 0.23 K/uL (0.00-0.70); EOSINOPHILS % (AUTO) 2.7 % (0.0-8.0); HEMATOCRIT 40.8 % (42-54); IMMATURE GRANULOCYTE ABSOLUTE 0.03 K/uL (0-1); LYMPHOCYTES # (AUTO) 1.1 K/uL (1.0-4.8); LYMPHOCYTES % (AUTO) 12.8 % (21.0-51.0); MEAN CORPUSCULAR HEMOGLOBIN 32.7 pg (27.0-33.0); MEAN CORPUSCULAR HGB CONC 35.5 g/dL (32.0-36.0); MEAN CORPUSCULAR VOLUME 91.9 fL (79-99); MONOCYTES # (AUTO) 0.5 K/uL (0.1-1.0); MONOCYTES % (AUTO) 5.7 % (3.0-13.0); NEUTROPHILS # (AUTO) 6.8 K/uL (1.8-7.7); NEUTROPHILS % (AUTO) 78.2 % (40.0-77.0); PLATELET COUNT (AUTO) 248 K/uL (130-400); RED BLOOD CELL COUNT(AUTO) 4.44 MIL/uL (4.50-6.20); RED CELL DISTRIBUTION WIDTH 11.4 % (11.0-15.5); WHITE BLOOD COUNT (AUTO) 8.6 K/uL (4.8-10.8)
[2024-02-07 04:55] LABS: CREATININE 1.1 mg/dL (0.5-1.3); POTASSIUM 3.3 mmol/L (3.5-5.1)
--- NOTE | 2024-02-07 06:21 | PN ---
SUBJECTIVE: The patient is a very pleasant 58-year-old diabetic, Latin-Bangladeshi male. He is afebrile. His white count is within normal limits. He has successful revascularization procedure performed by the Cardiology Service in the [employer]. He had a revascularization procedure of right anterior tibial artery. He has had cultures that have grown back Prevotella species, Enterobacter and Enterococcus, who is being followed now for an ulcer ingrown toenail to his great toe to his foot on the right. REVIEW OF SYSTEMS: CONSTITUTIONAL: No chills, no fevers, no night sweats, no nausea or vomiting, no diarrhea. HEENT: No problems with eyes, ears, nose or throat. CARDIOVASCULAR: He has peripheral vascular disease, status post revascularization procedure of right anterior tibial artery by the [facility]. GENITOURINARY: No dysuria. GASTROINTESTINAL: No dysphagia. ENDOCRINE: Diabetes. PSYCHIATRIC: Denies depression. MUSCULOSKELETAL: Bunions and hammertoe deformities. INTEGUMENT: Had an ingrown toenail removed from the right great toe and medial border. He did have an ingrown toenail surgical site medial border of the right hallux that is healing well. Plantar ulcer on right great toe is measuring 5 x 10 x 3 mm, clean and granular and is healing well. ASSESSMENT: Diabetes, peripheral vascular disease, status post revascularization procedure, polymicrobial wound infection, receiving broad-spectrum antibiotic therapy, peripheral neuropathy, status post removal of ingrown toenail of the right hallux medial border, status post debridement of the plantar ulcer to the right great toe. The patient with osteomyelitis and proximal phalanx fracture per x-ray and MRI. PLAN: We will continue with recommendations by Cardiology, Infectious Disease. Continue with the IV vancomycin and cefepime. Awaiting infusion unit to followup with the patient. Continue with Hydrofera Blue dressings to the plantar ulcer right great toe and to the ingrown toenail surgical site medially to that right great toe. TID: [id number] RECEIPT: [id number]
--- NOTE | 2024-02-07 08:00 | NUR ---
Patient is alert, oriented in person, time and place. No signs or symptoms of respiratory distress noted. Popliteal pulses present but weak on both legs. Bowel sounds present and active on all four abdominal quadrants. Picc line to Right Upper Arm, patent on both lumens. Dressing is clean and dry. Educated patient and on plan of care, pain management, current medication, PRN medications, wound care and insulin scale. Patient verbalized understanding.
--- NOTE | 2024-02-07 08:45 | PN ---
SUBJECTIVE: The patient is a 58-year-old diabetic, Latin-Ugandan male who is followed up for a fracture to his great toe on the right, osteomyelitis to his great toe on the right. He is requesting a walking boot to ambulate with on the right. His x-rays have shown fracture distal phalanx, proximal aspect, possible intraarticular involvement. His MRI have shown osteomyelitis of distal phalanx of the right first toe. He is status post revascularization procedure of the anterior tibial artery in the [employer] by the cardiology service. He is status post ingrown toenail surgery, removal of medial border of the right great toe. He has cultures that have grown back Prevotella species, Enterobacter and Enterococcus. Currently receiving IV vancomycin and cefepime. REVIEW OF SYSTEMS: CONSTITUTIONAL: No chills, no fevers, no night sweats, no nausea, no vomiting, no diarrhea. HEENT: No problems with eyes, ears, nose or throat. CARDIOVASCULAR: He has peripheral vascular disease, status post revascularization procedure to right anterior tibial artery by the [facility] on that right side. GENITOURINARY: No dysuria. GASTROINTESTINAL: No dysphagia. ENDOCRINE: Diabetes. PSYCHIATRIC: Denied any depression. MUSCULOSKELETAL: Bunions and hammertoes. INTEGUMENT: He has an ingrown toenail removal from the right great toe and the medial border. He has an ingrown toenail surgical site to the medial border that is healing well. He has a plantar ulcer on the right that is measuring 5 x 10 x 3 mm, healing well. PHYSICAL EXAMINATION: Palpable anterior tibial pulse on the right. Also plantar aspect of the right great toe improving. Also ingrown toenail surgical site medial border of the right hallux nail healing. No signs of infection. ASSESSMENT: Diabetes, peripheral vascular disease, status post revascularization procedure, polymicrobial wound infection, receiving broad-spectrum antibiotic therapy, peripheral neuropathy, status post removal of an ingrown toenail of the right hallux along the medial border, status post debridement of plantar ulcer of the right great toe. The patient with osteomyelitis of the distal phalanx and distal phalanx fracture of the right great toe. PLAN: We will continue with IV vancomycin and cefepime per the patient's cultures and sensitivities. Continue with Medihoney dressings to his right great toe ulcers and ingrown toenail surgical site, although I will order the patient a CAM walking boot on the right to use to ambulate with. We will continue to follow the patient closely while in-house. TID: [id number] RECEIPT: [id number]
--- NOTE | 2024-02-07 11:30 | NUR ---
BLOOD GLUCOSE AT 200. COVERED WITH 4 UNITS OF HUMULIN R SUBCUTANEOUS; FOLLOWING INSULIN SCALE.
--- NOTE | 2024-02-07 13:53 | PN ---
[facility] PROGRESS NOTE Date of Service: Feb 07, 2024 Time of Service: 13:45 SUBJECTIVE: 02/01: [ Edvin Callahan is a 58-year-old male who approximately two months ago tripped and traumatizes right great toe. He did not seek medical attention at the time. Over the past week he noticed increased redness and some pus coming out of his right great toenail and so he sought medical attention here [place] [facility] [place]. He is a diabetic who does not know what his blood sugars are A1c usually run. The nurse mentioned that his last sugar checked was [address] Kaiser the airport representative has already been by and evaluated the patient and dressed his foot an MRI has been ordered and done. 02/02: Patient went down for bilateral CT angio of the aorta with runoffs and is back. He states he felt warm when they injected the iodine contrast. He denies any chest pain or shortness of breath. No nausea or vomiting or diarrhea. His appetite is intact he is urinating and defecating normally. 02/03 patient seen at bedside, no acute events overnight. Patient has been evaluated by cardiology who is planning a laborer cheesemaking procedure with possible intervention, will follow up post procedure. Lab holiday today. 02/04 patient seen at bedside, no acute events overnight. Pending laborer cheesemaking procedure sometime today, we will follow up with Cardiology recommendations. He has been afebrile, hemodynamically stable saturating well on room air. Labs are unremarkable. Continue with empiric antibiotics. 02/05 patient seen at bedside, no acute events overnight. Patient taken to laborer cheesemaking yesterday with successful revascularization procedure performed by Pradip ibrahim, tolerated the procedure well see the op note for more details. Patient will need six weeks of IV antibiotics per Infectious Disease, patient will need to go to their PCP for a referral to the [facility], subclinical we will not be open until Sunday after the holiday, patient will need to stay in the hospital over the weekend. We will order PICC line placement in the meantime and continue to monitor the patient's progress. 02/06 patient seen at bedside, no acute events overnight. His vitals and labs are stable. He continues with IV antibiotics until Sunday when he may discharge to follow up with his PCP REVIEW OF SYSTEMS 12-point ROS reviewed with the patient. All pertinent positives mentioned above. Otherwise negative, non-pertinent, or noncontributory. PHYSICAL EXAM GENERAL APPEARANCE: The patient is awake, alert, and oriented, in no acute cardiopulmonary distress. NEUROLOGICAL: Cranial nerves II-XII grossly intact. Motor is 5/5 in bilateral upper and lower extremities proximal to distal. No sensory deficits. HEENT: Face is symmetric. Pupils are equal and reactive. Extraocular movements are intact. NECK: Supple. No JVD. No thyromegaly. No submental, submandibular, pre-/post auricular, occipital or supraclavicular lymphadenopathy. CHEST: Normal chest expansion. No Telemetry. LUNGS: Absence of any rales, rhonchi or any wheezing. CARDIOVASCULAR: Regular. S1 and S2 normal. No appreciable rubs, murmurs or gallops. ABDOMEN: Soft, nontender, and nondistended. There is no rebound, voluntary guarding, or rigidity. : Deferred. No Obrien. EXTREMITIES: Non-edematous and not cyanotic. No clubbing. Good capillary refill. Right toe and foot is wrapped in both Vaseline gauze dressing and then an external dry Mainor bandage. Second toe of the right foot shows delayed capillary refill nonpalpable pulses of right and left dorsalis pedis noted n onpalpable popliteal on the right palpable on the left. SKIN: No skin breakdown. Lower leg edema has resolved Vital Signs (last 8hr) Date Time Temp Pulse Resp B/P (MAP) Pulse Ox O2 Delivery O2 Flow Rate FiO2 02/07/24 11:51 98.8 69 20 134/70 100 Room Air 21 02/07/24 08:00 98.6 69 18 135/70 98 Room Air 02/07/24 08:00 98 Room Air* 0 21 LABS: Laboratory: Test 02/07/24 11:07 02/07/24 04:36 02/06/24 08:38 02/05/24 17:35 Range/Units Whole Blood Glucose 200 H 70-110 MG/DL White Blood Count 8.6 4.8-10.8 K/uL Red Blood Count 4.44 L 4.50-6.20 MIL/uL Hemoglobin 14.5 14.0-18.0 g/dL Hematocrit 40.8 L 42-54 % Mean Corpuscular Volume 91.9 79-99 fL Mean Corpuscular Hemoglobin 32.7 27.0-33.0 pg Mean Corpuscular Hemoglobin Concent 35.5 32.0-36.0 g/dL Red Cell Distribution Width 11.4 11.0-15.5 % Platelet Count 248 130-400 K/uL Mean Platelet Volume 9.6 7.5-10.5 fL Immature Granulocyte % (Auto) 0.3 0-1 % Neutrophils (%) (Auto) 78.2 H 40.0-77.0 % Lymphocytes (%) (Auto) 12.8 L 21.0-51.0 % Monocytes (%) (Auto) 5.7 3.0-13.0 % Eosinophils (%) (Auto) 2.7 0.0-8.0 % Basophils (%) (Auto) 0.3 0.0-5.0 % Neutrophils # (Auto) 6.8 1.8-7.7 K/uL Lymphocytes # (Auto) 1.1 1.0-4.8 K/uL Monocytes # (Auto) 0.5 0.1-1.0 K/uL Eosinophils # (Auto) 0.23 0.00-0.70 K/uL Basophils # (Auto) 0.03 0.00-0.20 K/uL Absolute Immature Granulocyte (auto 0.03 0-1 K/uL Nucleated Red Blood Cells 0.0 0.0-0.19 % Sodium Level 134 L 136-145 mmol/L Potassium Level 3.3 L 3.5-5.1 mmol/L Chloride Level 101 101-111 mmol/L Carbon Dioxide Level 26 21-32 mmol/L Blood Urea Nitrogen 16 7-18 mg/dL Creatinine 1.1 0.5-1.3 mg/dL Glomerular Filtration Rate Calc 77 >90 mL/min Random Glucose 170 H 70-105 mg/dL Total Calcium 8.7 8.5-10.1 mg/dL Prothrombin Time 11.2 9.6-11.6 SEC Prothromb Time International Ratio 1.04 0.85-1.15 Activated Partial Thromboplast Time 27.1 26.3-35.5 SEC Vancomycin Level Trough 13.9 10.0-20.0 UG/ML Activated Clotting Time 265 H 100-180 SEC Current Medications Medications (Trade) Dose Ordered Sig/Adria Route PRN Reason Start Time Stop Time Status Last Admin Dose Admin Acetaminophen (TYLenol 325MG TAB) 650 mg Q6H PRN PO FEVER/MILD PAIN LEVEL 1-3 02/01/24 21:00 03/02/24 20:59 Acetaminophen (TYLenol 650MG SUPPOSITORY) 650 mg Q6H PRN RC FEVER / MILD PAIN 1-3 IF NPO 02/01/24 21:00 03/02/24 20:59 Acetaminophen/ Hydrocodone Bitart (NORco 5/325MG) 1 tab Q6H PRN PO MODERATE PAIN (4-6) 02/01/24 21:00 02/06/24 20:59 DC Aspirin (Aspirin 81mg Chew Tab) 81 mg DAILY PO 02/06/24 09:00 03/07/24 08:59 02/07/24 08:55 81 MG Cefepime HCl (MAXipime 1 GM vial) 1 gm Q8H IVPB 02/02/24 03:00 02/04/24 18:33 DC 02/04/24 13:20 1 GM Cefepime HCl (MAXipime 1 GM vial) 1 gm Q8H IVPB 02/04/24 21:00 02/06/24 13:39 DC 02/06/24 05:42 1 GM Docusate Sodium (COLace 100MG CAP) 100 mg BID PRN PO c 02/01/24 21:00 03/02/24 20:59 Enoxaparin Sodium (Lovenox) 40 mg DAILY SQ 02/02/24 09:00 03/03/24 08:59 02/06/24 08:27 40 MG Hydralazine HCl (APRESOLine 20MG INJ) 10 mg Q2H PRN IV SBP GREATER THAN 160 02/01/24 21:00 03/02/24 20:59 Hydrochlorothiazide (hydroCHLOROthiazide 25MG) 12.5 mg DAILY PO 02/03/24 09:00 03/04/24 08:59 02/07/24 08:56 12.5 MG Insulin Human Regular (humuLIN R 100 UNIT/ML 3ML) INSULIN SLIDING SCAL... ACHS SQ 02/01/24 21:00 03/02/24 20:59 02/07/24 12:56 4 UNIT Lactulose (Constulose 20gm/ 30ml Udcup) 20 gm Q6H PRN PO CONSTIPATION 02/01/24 21:00 03/02/24 20:59 Linagliptin (TradJENTA) 5 mg DAILY PO 02/03/24 09:00 03/04/24 08:59 02/07/24 08:55 5 MG Lisinopril (Prinivil 40mg) 40 mg DAILY PO 02/02/24 14:00 03/03/24 13:59 02/07/24 08:58 40 MG Magnesium Sulfate 50 ml @ 0 mls/hr PROTOCOL PRN IV MAGNESIUM PROTOCOL 02/02/24 11:00 03/03/24 10:59 02/05/24 06:44 10 MLS/HR Ondansetron HCl (zoFRAN 4MG INJ) 4 mg Q6H PRN IVP NAUSEA/VOMITING 02/01/24 21:00 03/02/24 20:59 Pantoprazole Sodium (PROTonix 40MG TAB) 40 mg DAILY PO 02/03/24 09:00 03/04/24 08:59 02/07/24 08:55 40 MG Piperacillin Sod/ Tazobactam Sod 50 ml @ 200 mls/hr STAT STAT IVPB 02/01/24 18:10 02/01/24 18:24 DC 02/01/24 18:52 200 MLS/HR Piperacillin Sod/ Tazobactam Sod (Zosyn 3.375gm+NS 50ml) 3.375 gm Q8H IV 02/06/24 17:00 02/16/24 16:59 02/07/24 08:58 3.375 GM Potassium Chloride 100 ml @ 100 mls/hr AD PRN IV POTASSIUM PROTOCOL 02/02/24 11:00 03/03/24 10:59 Potassium Chloride (K-Dur/Klor-Con 20meq) 20 meq AD PRN PO POTASSIUM PROTOCOL 02/02/24 11:00 03/03/24 10:59 02/07/24 09:01 20 MEQ Potassium Chloride (KCl 10% Elixir 20meq/15ml) 20 meq AD PRN PO POTASSIUM PROTOCOL 02/02/24 11:00 03/03/24 10:59 Prasugrel (Effient 10mg) 10 mg DAILY PO 02/06/24 09:00 03/07/24 08:59 02/07/24 08:55 10 MG Sodium Chloride 1,000 ml @ 150 mls/hr AD IV 02/05/24 18:30 02/06/24 00:29 DC Temazepam (restORIL 15 MG CAP) 15 mg HS PRN PO INSOMNIA/SLEEP 02/01/24 21:00 03/02/24 20:59 Vancomycin HCl 250 ml @ 125 mls/hr Q12H IV 02/01/24 21:00 02/03/24 07:12 DC 02/02/24 19:33 125 MLS/HR Vancomycin HCl 250 ml @ 125 mls/hr Q12H IV 02/03/24 09:00 02/06/24 13:39 DC 02/06/24 10:12 125 MLS/HR Vancomycin HCl (Vancomycin Protocol) 1 each AD IV 02/01/24 21:00 02/06/24 13:39 DC DIAGNOSTICS / RADIOLOGY: [ ] ASSESSMENT: Cellulitis of right foot and right lower extremity, with failed outpatient antibiotic therapy, POA Right toe diabetic foot ulcer/cellulitis, POA Fracture of the distal phalanx proximal aspect with possible intra-articular extension Acute dehydration, POA Acute kidney injury, GFR 69 Diabetes mellitus with hyperglycemia Uncontrolled hypertension Diabetes mellitus type 2, hypertension, left testicular removal Osteomyelitis of the right great toe PLAN: Continue Vancomycin IV and cefepime IV continue Cardiology consulted Infectious disease consulted, appreciate recommendations Podiatry consulted, appreciate recommendations PICC line to be placed Pt will need 6 weeks IV antibiotic therapy Monitor renal and liver function. Monitor electrolytes and treat accordingly. DVT and GI prophylaxis. Disposition: Pending PICC placement, pt likely discharge on Sunday as he will need to see PCP for referral to [facility] and [facility] will be closed until Sunday MATTHEW PISANO MD Feb 07, 2024 13:53
--- NOTE | 2024-02-07 16:30 | NUR ---
BLOOD GLUCOSE AT 186. COVERED WITH 4 UNITS OF HUMULIN R SUBCUTANEOUS; FOLLOWING INSULIN SCALE.
--- NOTE | 2024-02-07 16:50 | PN ---
INFECTIOUS DISEASE FOLLOWUP NOTE DATE OF SERVICE: 02/07/2024 SUBJECTIVE: The patient is seen and examined at bedside today. The patient has no fever, no chills. No nausea, no vomiting. No bleeding tendency. Denied dysuria or hematuria. No depression or suicidal ideation. PHYSICAL EXAMINATION: VITAL SIGNS: Temperature 96.8. EYES: No icterus. Pupils equal and reactive. HENT: No oral thrush seen. Moist oral mucosa. NECK: Supple, no JVD or thyromegaly. LUNGS: Good air entry. No rales, no rhonchi. CARDIOVASCULAR: S1, S2 regular. No murmur heard. ABDOMEN: Full, soft, obese, nontender. Bowel sounds present. CENTRAL NERVOUS SYSTEM: Awake, alert, oriented x 3. No focal deficits. SKIN: No rashes, no itchiness. LYMPHATIC: There is slight inguinal lymphadenopathy. BACK: No deformity, no pressure ulcer. HEMATOLOGIC: No bleeding or petechial lesion seen. EXTREMITIES: Ulcer involving the right great toe. ASSESSMENT: A 58-year-old male with multiple problems which include: * Right great toe osteomyelitis. * Diabetic foot ulcer. * Peripheral vascular disease. * Polymicrobial infection. * Obesity. * Hypertension. PLAN: * Continue Zosyn. * Continue wound care. * Continue antidiabetic. * Continue pain management. * Continue nutritional support. * Monitor electrolytes. * Continue DVT prophylaxis. * Continue antiplatelet. TID: [id number] RECEIPT: [id number]
[2024-02-08] VITALS (7 sets, daily range): BP systolic 115–140; BP diastolic 73–79; PULSE 66–80; RESP 16–19; TEMP 97.9–98.6; O2SAT 94–96
--- NOTE | 2024-02-08 08:58 | PN ---
SUBJECTIVE: The patient is a very pleasant 58-year-old diabetic, male who is followed up for a fracture to his first toe on the right; followed up for osteomyelitis, distal phalanx on the right; followed up for an ingrown toenail surgery removal to the great toe on the right; status post revascularization procedure of the anterior tibial artery on the right. Being followed by Infectious Disease, receiving Zosyn. Wound cultures: Prevotella; species: Enterobacter cloacae, Enterococcus faecalis. The patient is without complaints of pain. He has been referred to outpatient infusion. He has had a PICC line placed. REVIEW OF SYSTEMS: CONSTITUTIONAL: No chills, no fevers, no night sweats, no nausea or vomiting, no diarrhea. HEENT: No problems with eyes, ears, nose, or throat. CARDIOVASCULAR: He has peripheral vascular disease, status post revascularization procedure anterior tibial artery on the right by [facility]. GENITOURINARY: No dysuria. GASTROINTESTINAL: No dysphagia. ENDOCRINE: Diabetes. PSYCHIATRIC: Denied depression. MUSCULOSKELETAL: Bunions and hammertoe deformities. INTEGUMENT: He has an ingrown toenail removal from the right great toe and the medial border. He has ingrown toenail surgical site medial border that is healing well. He has a plantar ulcer on the right that is measuring 5 mm x 10 mm x 2 mm, healing well. EXTREMITIES: Exam shows palpable anterior tibial pulse on the right, plantar ulcer on the right ingrown toenail surgery site on the right medial border clean and granular, no signs of infection. ASSESSMENT: Diabetes; peripheral vascular disease, status post revascularization procedure; polymicrobial wound infection, receiving broad-spectrum antibiotic therapy; peripheral neuropathy, status post removal of an ingrown toenail to the right hallux along the medial border, status post debridement of the plantar ulcer on the right. The patient with osteomyelitis of the distal phalanx of the right great toe, fracture of the base of the right great toe. PLAN: We will continue with the IV Zosyn per the patient's cultures and sensitivities. Continue with Medihoney dressings to his right great toe and ingrown toenail surgical site. We will order the patient a CAM walking boot to ambulate with on that right side. We will continue to follow up the patient closely while in-house. TID: [id number] RECEIPT: [id number]
--- NOTE | 2024-02-08 11:30 | NUR ---
BLOOD GLUCOSE AT 201. COVERED WITH 6 UNITS OF HUMULIN R SUBCUTANEOUS; FOLLOWING INSULIN SCALE.
--- NOTE | 2024-02-08 11:59 | PN ---
[facility] PROGRESS NOTE Date of Service: Feb 08, 2024 Time of Service: : SUBJECTIVE: 02/01: [ Edvin Callahan is a 58-year-old male who approximately two months ago tripped and traumatizes right great toe. He did not seek medical attention at the time. Over the past week he noticed increased redness and some pus coming out of his right great toenail and so he sought medical attention here at [facility]. He is a diabetic who does not know what his blood sugars are A1c usually run. The nurse mentioned that his last sugar checked was [address] Kaiser the provider network analyst has already been by and evaluated the patient and dressed his foot an MRI has been ordered and done. 02/02: Patient went down for bilateral CT angio of the aorta with runoffs and is back. He states he felt warm when they injected the iodine contrast. He denies any chest pain or shortness of breath. No nausea or vomiting or diarrhea. His appetite is intact he is urinating and defecating normally. 02/03 patient seen at bedside, no acute events overnight. Patient has been evaluated by cardiology who is planning a laborer chicken farm procedure with possible intervention, will follow up post procedure. Lab holiday today. 02/04 patient seen at bedside, no acute events overnight. Pending laborer chicken farm procedure sometime today, we will follow up with Cardiology recommendations. He has been afebrile, hemodynamically stable saturating well on room air. Labs are unremarkable. Continue with empiric antibiotics. 02/05 patient seen at bedside, no acute events overnight. Patient taken to laborer chicken farm yesterday with successful revascularization procedure performed by Pradip ibrahim, tolerated the procedure well see the op note for more details. Patient will need six weeks of IV antibiotics per Infectious Disease, patient will need to go to their PCP for a referral to the [facility], subclinical we will not be open until Sunday after the holiday, patient will need to stay in the hospital over the weekend. We will order PICC line placement in the meantime and continue to monitor the patient's progress. 02/06 patient seen at bedside, no acute events overnight. His vitals and labs are stable. He continues with IV antibiotics until Sunday when he may discharge to follow up with his PCP 02/07 patient seen at bedside, no acute events overnight. His vitals and labs are stable. He continues with IV antibiotics until Sunday when he may discharge to follow up with his PCP REVIEW OF SYSTEMS 12-point ROS reviewed with the patient. All pertinent positives mentioned above. Otherwise negative, non-pertinent, or noncontributory. PHYSICAL EXAM GENERAL APPEARANCE: The patient is awake, alert, and oriented, in no acute cardiopulmonary distress. NEUROLOGICAL: Cranial nerves II-XII grossly intact. Motor is 5/5 in bilateral upper and lower extremities proximal to distal. No sensory deficits. HEENT: Face is symmetric. Pupils are equal and reactive. Extraocular movements are intact. NECK: Supple. No JVD. No thyromegaly. No submental, submandibular, pre- /postauricular, occipital or supraclavicular lymphadenopathy. CHEST: Normal chest expansion. No Telemetry. LUNGS: Absence of any rales, rhonchi or any wheezing. CARDIOVASCULAR: Regular. S1 and S2 normal. No appreciable rubs, murmurs or gallops. ABDOMEN: Soft, nontender, and nondistended. There is no rebound, voluntary guarding, or rigidity. : Deferred. No Obrien. EXTREMITIES: Non-edematous and not cyanotic. No clubbing. Good capillary refill. Right toe and foot is wrapped in both Vaseline gauze dressing and then an external dry Mainor bandage. Second toe of the right foot shows delayed capillary refill nonpalpable pulses of right and left dorsalis pedis noted nonpalpable popliteal on the right palpable on the left. SKIN: No skin breakdown. Lower leg edema has resolved Vital Signs (last 8hr) Date Time Temp Pulse Resp B/P (MAP) Pulse Ox O2 Delivery O2 Flow Rate FiO2 02/08/24 11:14 98.4 80 16 115/74 96 Room Air 02/08/24 07:59 98.4 70 18 129/79 96 Room Air 02/08/24 07:52 96 Room Air* 0 21 02/08/24 04:00 98.6 72 19 123/79 97 Room Air LABS: Laboratory: Test 02/08/24 10:44 02/07/24 04:36 Range/Units Whole Blood Glucose 201 H 70-110 MG/DL White Blood Count 8.6 4.8-10.8 K/uL Red Blood Count 4.44 L 4.50-6.20 MIL/uL Hemoglobin 14.5 14.0-18.0 g/dL Hematocrit 40.8 L 42-54 % Mean Corpuscular Volume 91.9 79-99 fL Mean Corpuscular Hemoglobin 32.7 27.0-33.0 pg Mean Corpuscular Hemoglobin Concent 35.5 32.0-36.0 g/dL Red Cell Distribution Width 11.4 11.0-15.5 % Platelet Count 248 130-400 K/uL Mean Platelet Volume 9.6 7.5-10.5 fL Immature Granulocyte % (Auto) 0.3 0-1 % Neutrophils (%) (Auto) 78.2 H 40.0-77.0 % Lymphocytes (%) (Auto) 12.8 L 21.0-51.0 % Monocytes (%) (Auto) 5.7 3.0-13.0 % Eosinophils (%) (Auto) 2.7 0.0-8.0 % Basophils (%) (Auto) 0.3 0.0-5.0 % Neutrophils # (Auto) 6.8 1.8-7.7 K/uL Lymphocytes # (Auto) 1.1 1.0-4.8 K/uL Monocytes # (Auto) 0.5 0.1-1.0 K/uL Eosinophils # (Auto) 0.23 0.00-0.70 K/uL Basophils # (Auto) 0.03 0.00-0.20 K/uL Absolute Immature Granulocyte (auto 0.03 0-1 K/uL Nucleated Red Blood Cells 0.0 0.0-0.19 % Sodium Level 134 L 136-145 mmol/L Potassium Level 3.3 L 3.5-5.1 mmol/L Chloride Level 101 101-111 mmol/L Carbon Dioxide Level 26 21-32 mmol/L Blood Urea Nitrogen 16 7-18 mg/dL Creatinine 1.1 0.5-1.3 mg/dL Glomerular Filtration Rate Calc 77 >90 mL/min Random Glucose 170 H 70-105 mg/dL Total Calcium 8.7 8.5-10.1 mg/dL Current Medications Medications (Trade) Dose Ordered Sig/Adria Route PRN Reason Start Time Stop Time Status Last Admin Dose Admin Acetaminophen (TYLenol 325MG TAB) 650 mg Q6H PRN PO FEVER/MILD PAIN LEVEL 1-3 02/01/24 21:00 03/02/24 20:59 Acetaminophen (TYLenol 650MG SUPPOSITORY) 650 mg Q6H PRN RC FEVER / MILD PAIN 1-3 IF NPO 02/01/24 21:00 03/02/24 20:59 Acetaminophen/ Hydrocodone Bitart (NORco 5/325MG) 1 tab Q6H PRN PO MODERATE PAIN (4-6) 02/01/24 21:00 02/06/24 20:59 DC Aspirin (Aspirin 81mg Chew Tab) 81 mg DAILY PO 02/06/24 09:00 03/07/24 08:59 02/08/24 10:08 81 MG Cefepime HCl (MAXipime 1 GM vial) 1 gm Q8H IVPB 02/02/24 03:00 02/04/24 18:33 DC 02/04/24 13:20 1 GM Cefepime HCl (MAXipime 1 GM vial) 1 gm Q8H IVPB 02/04/24 21:00 02/06/24 13:39 DC 02/06/24 05:42 1 GM Docusate Sodium (COLace 100MG CAP) 100 mg BID PRN PO c 02/01/24 21:00 03/02/24 20:59 Enoxaparin Sodium (Lovenox) 40 mg DAILY SQ 02/02/24 09:00 03/03/24 08:59 02/06/24 08:27 40 MG Hydralazine HCl (APRESOLine 20MG INJ) 10 mg Q2H PRN IV SBP GREATER THAN 160 02/01/24 21:00 03/02/24 20:59 Hydrochlorothiazide (hydroCHLOROthiazide 25MG) 12.5 mg DAILY PO 02/03/24 09:00 03/04/24 08:59 02/08/24 10:09 12.5 MG Insulin Human Regular (humuLIN R 100 UNIT/ML 3ML) INSULIN SLIDING SCAL... ACHS SQ 02/01/24 21:00 03/02/24 20:59 02/07/24 17:01 4 UNIT Lactulose (Constulose 20gm/ 30ml Udcup) 20 gm Q6H PRN PO CONSTIPATION 02/01/24 21:00 03/02/24 20:59 Linagliptin (TradJENTA) 5 mg DAILY PO 02/03/24 09:00 03/04/24 08:59 02/08/24 10:08 5 MG Lisinopril (Prinivil 40mg) 40 mg DAILY PO 02/02/24 14:00 03/03/24 13:59 02/08/24 10:08 40 MG Magnesium Sulfate 50 ml @ 0 mls/hr PROTOCOL PRN IV MAGNESIUM PROTOCOL 02/02/24 11:00 03/03/24 10:59 02/05/24 06:44 10 MLS/HR Ondansetron HCl (zoFRAN 4MG INJ) 4 mg Q6H PRN IVP NAUSEA/VOMITING 02/01/24 21:00 03/02/24 20:59 Pantoprazole Sodium (PROTonix 40MG TAB) 40 mg DAILY PO 02/03/24 09:00 03/04/24 08:59 02/08/24 10:08 40 MG Piperacillin Sod/ Tazobactam Sod 50 ml @ 200 mls/hr STAT STAT IVPB 02/01/24 18:10 02/01/24 18:24 DC 02/01/24 18:52 200 MLS/HR Piperacillin Sod/ Tazobactam Sod (Zosyn 3.375gm+NS 50ml) 3.375 gm Q8H IV 02/06/24 17:00 02/16/24 16:59 02/08/24 10:08 3.375 GM Potassium Chloride 100 ml @ 100 mls/hr AD PRN IV POTASSIUM PROTOCOL 02/02/24 11:00 03/03/24 10:59 Potassium Chloride (K-Dur/Klor-Con 20meq) 20 meq AD PRN PO POTASSIUM PROTOCOL 02/02/24 11:00 03/03/24 10:59 02/07/24 09:01 20 MEQ Potassium Chloride (KCl 10% Elixir 20meq/15ml) 20 meq AD PRN PO POTASSIUM PROTOCOL 02/02/24 11:00 03/03/24 10:59 Prasugrel (Effient 10mg) 10 mg DAILY PO 02/06/24 09:00 03/07/24 08:59 02/08/24 10:08 10 MG Sodium Chloride 1,000 ml @ 150 mls/hr AD IV 02/05/24 18:30 02/06/24 00:29 DC Temazepam (restORIL 15 MG CAP) 15 mg HS PRN PO INSOMNIA/SLEEP 02/01/24 21:00 03/02/24 20:59 Vancomycin HCl 250 ml @ 125 mls/hr Q12H IV 02/01/24 21:00 02/03/24 07:12 DC 02/02/24 19:33 125 MLS/HR Vancomycin HCl 250 ml @ 125 mls/hr Q12H IV 02/03/24 09:00 02/06/24 13:39 DC 02/06/24 10:12 125 MLS/HR Vancomycin HCl (Vancomycin Protocol) 1 each AD IV 02/01/24 21:00 02/06/24 13:39 DC DIAGNOSTICS / RADIOLOGY: [ ] ASSESSMENT: Cellulitis of right foot and right lower extremity, with failed outpatient antibiotic therapy, POA Right toe diabetic foot ulcer/cellulitis, POA Fracture of the distal phalanx proximal aspect with possible intra-articular extension Acute dehydration, POA Acute kidney injury, GFR 69 Diabetes mellitus with hyperglycemia Uncontrolled hypertension Diabetes mellitus type 2, hypertension, left testicular removal Osteomyelitis of the right great toe PLAN: Continue Vancomycin IV and cefepime IV continue Cardiology consulted Infectious disease consulted, appreciate recommendations Podiatry consulted, appreciate recommendations PICC line to be placed Pt will need 6 weeks IV antibiotic therapy Monitor renal and liver function. Monitor electrolytes and treat accordingly. DVT and GI prophylaxis. Disposition: Pending discharge on Sunday as he will need to see PCP for referral to [facility] and [facility] will be closed until Sunday MATTHEW PISANO MD Feb 08, 2024 11:58
--- NOTE | 2024-02-08 12:04 | PN ---
INFECTIOUS DISEASE PROGRESS NOTE Date of Service: Feb 08, 2024 SUBJECTIVE: This is a 58-year-old male patient who was seen and examined at bedside in room 316. Patient is awake, alert and oriented x 3. Patient is status post peripheral angiogram with revascularization on 02/05/2024. Patient with polymicrobial infection to the right foot wound. Dressing changes as recommended by shoulder boner, currently on with Erendira. Patient continues on Zosyn IV. Patient is afebrile, temperature is 98.4. Patient is pending referral from his PCP to authorize for outpatient IV [facility], [facility] however is closed today and patient will need to follow up on Sunday. We will continue to monitor patient. PHYSICAL EXAM EYES: Anicteric. Pupils equal and reactive. HENT: No oral thrush seen, moist Oral mucosa. NECK: Supple, no JVD or thyromegaly. LUNGS: Good air entry. No rales, no rhonchi. CARDIOVASCULAR: S1, S2 regular. No murmur heard. ABDOMEN: Soft, non tender, bowel sounds present, no organomegaly CENTRAL NERVOUS SYSTEM: Awake, alert, oriented x 3. SKIN: No rashes, no swelling. Right foot diabetic ulcer. LYMPHATICS: No peripheral lymphadenopathy. MUSCULOSKELETAL: No joint swelling, erythema or tenderness. EXTREMITIES: No cyanosis or clubbing. BACK: No deformity, no pressure ulcer. GENITOURINARY: No dysuria or hematuria. Vital Sign (Last 12 Hours) 02/08/24 02/08/24 02/08/24 02/08/24 04:00 07:52 07:59 11:14 Temp 98.6 98.4 98.4 Pulse 72 70 80 Resp 19 18 16 B/P (MAP) 123/79 129/79 115/74 Pulse Ox 97 96 96 96 O2 Delivery Room Air Room Air* Room Air Room Air O2 Flow Rate 0 FiO2 21 Intake & Output (last 24hrs) 02/07/24 02/07/24 02/08/24 15:00 23:00 07:00 Intake Total 250 ml 50.0 ml Balance 250 ml 50.0 ml LABS: Laboratory: Test 02/08/24 10:44 02/07/24 04:36 Range/Units Whole Blood Glucose 201 H 70-110 MG/DL White Blood Count 8.6 4.8-10.8 K/uL Red Blood Count 4.44 L 4.50-6.20 MIL/uL Hemoglobin 14.5 14.0-18.0 g/dL Hematocrit 40.8 L 42-54 % Mean Corpuscular Volume 91.9 79-99 fL Mean Corpuscular Hemoglobin 32.7 27.0-33.0 pg Mean Corpuscular Hemoglobin Concent 35.5 32.0-36.0 g/dL Red Cell Distribution Width 11.4 11.0-15.5 % Platelet Count 248 130-400 K/uL Mean Platelet Volume 9.6 7.5-10.5 fL Immature Granulocyte % (Auto) 0.3 0-1 % Neutrophils (%) (Auto) 78.2 H 40.0-77.0 % Lymphocytes (%) (Auto) 12.8 L 21.0-51.0 % Monocytes (%) (Auto) 5.7 3.0-13.0 % Eosinophils (%) (Auto) 2.7 0.0-8.0 % Basophils (%) (Auto) 0.3 0.0-5.0 % Neutrophils # (Auto) 6.8 1.8-7.7 K/uL Lymphocytes # (Auto) 1.1 1.0-4.8 K/uL Monocytes # (Auto) 0.5 0.1-1.0 K/uL Eosinophils # (Auto) 0.23 0.00-0.70 K/uL Basophils # (Auto) 0.03 0.00-0.20 K/uL Absolute Immature Granulocyte (auto 0.03 0-1 K/uL Nucleated Red Blood Cells 0.0 0.0-0.19 % Sodium Level 134 L 136-145 mmol/L Potassium Level 3.3 L 3.5-5.1 mmol/L Chloride Level 101 101-111 mmol/L Carbon Dioxide Level 26 21-32 mmol/L Blood Urea Nitrogen 16 7-18 mg/dL Creatinine 1.1 0.5-1.3 mg/dL Glomerular Filtration Rate Calc 77 >90 mL/min Random Glucose 170 H 70-105 mg/dL Total Calcium 8.7 8.5-10.1 mg/dL ASSESSMENT: Right great toe osteomyelitis. Right foot Diabetic ulcer. Polymicrobial right foot Wound Infection. Right foot Cellulitis. PVD, status post peripheral angiogram with revascularization on 02/05/2024.. Hypertension. PLAN: Continue cefepime IV. Continue vancomycin per pharmacy protocol. Continue GI prophylaxis. Continue pain management. Continue monitoring glucose levels. Continue wound care as recommended by shoulder boner. Patient pending referral from his PCP at [facility] for [facility] antibiotic. This case was reviewed and discussed with my supervising physician and the above assessment and plan was formulated and agreed upon. ATTESTATION BY PHYSICIAN I have seen and examined the patient. I reviewed the documentation, medical decision making, and treatment plan as noted by the mid-level provider above. I agree with the findings and plan of care. ESTEBAN NG MD, MIRTA L [facility] Feb 08, 2024 12:04
--- NOTE | 2024-02-08 16:30 | NUR ---
BLOOD GLUCOSE AT 210. COVERED WITH 6 UNITS OF HUMULIN R SUBCUTANEOUS; FOLLOWING INSULIN SCALE.
--- NOTE | 2024-02-08 18:18 | NUR ---
DC PLAN SPOKE TO PATIENT. EXPLAINED DELAY. ASKED IF WANTED TO TRY DR. LUU SAID NO HE HAD DR. BURDEN. EXPLAINED THAT INSURANCE HAD MADE DR. SMITH HIS PCP. PATIENT GOT INSURANCE CARD ABOUT A WEEK AGO. HE HAS NOT HAD TIME TO SEE PCP YET. CM DID TRY TO CALL DR. PARSON OFFICE ON SUN AND SUN [phone] NO ANSWER MESSAGE SAID CLOSED UNTIL SUNDAY. TRIED TO SET UP ONLINE APPOINTMENT SYSTEM DID NOT HAVE FUNCTION. Addendum: 02/08/24 at 1828 by NEGAR ABEBE RN Amended: Links added.
[2024-02-09] VITALS (8 sets, daily range): BP systolic 104–127; BP diastolic 63–75; PULSE 64–81; RESP 16–19; TEMP 98–98.5; O2SAT 94–96
--- NOTE | 2024-02-09 13:18 | PN ---
[facility] PROGRESS NOTE Date of Service: Feb 09, 2024 Time of Service: 13:17 SUBJECTIVE: 02/01: [ Edvin Callahan is a 58-year-old male who approximately two months ago tripped and traumatizes right great toe. He did not seek medical attention at the time. Over the past week he noticed increased redness and some pus coming out of his right great toenail and so he sought medical attention here at [facility] Emergency Department. He is a diabetic who does not know what his blood sugars are A1c usually run. The nurse mentioned that his last sugar checked was [address] Kaiser the independent insurance adjuster has already been by and evaluated the patient and dressed his foot an MRI has been ordered and done. 02/02: Patient went down for bilateral CT angio of the aorta with runoffs and is back. He states he felt warm when they injected the iodine contrast. He denies any chest pain or shortness of breath. No nausea or vomiting or diarrhea. His appetite is intact he is urinating and defecating normally. 02/03 patient seen at bedside, no acute events overnight. Patient has been evaluated by cardiology who is planning a mechanical laboratory technician procedure with possible intervention, will follow up post procedure. Lab holiday today. 02/04 patient seen at bedside, no acute events overnight. Pending mechanical laboratory technician procedure sometime today, we will follow up with Cardiology recommendations. He has been afebrile, hemodynamically stable saturating well on room air. Labs are unremarkable. Continue with empiric antibiotics. 02/05 patient seen at bedside, no acute events overnight. Patient taken to mechanical laboratory technician yesterday with successful revascularization procedure performed by Pradip ibrahim, tolerated the procedure well see the op note for more details. Patient will need six weeks of IV antibiotics per Infectious Disease, patient will need to go to their PCP for a referral to the [facility], subclinical we will not be open until Sunday after the holiday, patient will need to stay in the hospital over the weekend. We will order PICC line placement in the meantime and continue to monitor the patient's progress. 02/06 patient seen at bedside, no acute events overnight. His vitals and labs are stable. He continues with IV antibiotics until Sunday when he may discharge to follow up with his PCP 02/07 patient seen at bedside, no acute events overnight. His vitals and labs are stable. He continues with IV antibiotics until Sunday when he may discharge to follow up with his PCP 02/08 patient seen at bedside, no acute events overnight. His vitals are stable, lab holiday today. He continues with IV antibiotics until Sunday when he may discharge to follow up with his PCP REVIEW OF SYSTEMS 12-point ROS reviewed with the patient. All pertinent positives mentioned above. Otherwise negative, non-pertinent, or noncontributory. PHYSICAL EXAM GENERAL APPEARANCE: The patient is awake, alert, and oriented, in no acute cardiopulmonary distress. NEUROLOGICAL: Cranial nerves II-XII grossly intact. Motor is 5/5 in bilateral upper and lower extremities proximal to distal. No sensory deficits. HEENT: Face is symmetric. Pupils are equal and reactive. Extraocular movements are intact. NECK: Supple. No JVD. No thyromegaly. No submental, submandibular, pre-/post auricular, occipital or supraclavicular lymphadenopathy. CHEST: Normal chest expansion. No Telemetry. LUNGS: Absence of any rales, rhonchi or any wheezing. CARDIOVASCULAR: Regular. S1 and S2 normal. No appreciable rubs, murmurs or gallops. ABDOMEN: Soft, nontender, and nondistended. There is no rebound, voluntary guarding, or rigidity. : Deferred. No Obrien. EXTREMITIES: Non-edematous and not cyanotic. No clubbing. Good capillary refill. Right toe and foot is wrapped in both Vaseline gauze dressing and then an external dry Mainor bandage. Second toe of the right foot shows delayed capillary refill nonpalpable pulses of right and left dorsalis pedis noted n onpalpable popliteal on the right palpable on the left. SKIN: No skin breakdown. Lower leg edema has resolved Vital Signs (last 8hr) Date Time Temp Pulse Resp B/P (MAP) Pulse Ox O2 Delivery O2 Flow Rate FiO2 02/09/24 13:01 94 Room Air* 0 21 02/09/24 12:00 98.2 64 18 117/71 97 Room Air 21 02/09/24 08:00 98.1 78 17 118/71 95 Room Air 21 LABS: Laboratory: Test 02/09/24 10:40 Range/Units Whole Blood Glucose 243 H 70-110 MG/DL Bedside Glucose Comment Notified Nurse Current Medications Medications (Trade) Dose Ordered Sig/Adria Route PRN Reason Start Time Stop Time Status Last Admin Dose Admin Acetaminophen (TYLenol 325MG TAB) 650 mg Q6H PRN PO FEVER/MILD PAIN LEVEL 1-3 02/01/24 21:00 03/02/24 20:59 Acetaminophen (TYLenol 650MG SUPPOSITORY) 650 mg Q6H PRN RC FEVER / MILD PAIN 1-3 IF NPO 02/01/24 21:00 03/02/24 20:59 Acetaminophen/ Hydrocodone Bitart (NORco 5/325MG) 1 tab Q6H PRN PO MODERATE PAIN (4-6) 02/01/24 21:00 02/06/24 20:59 DC Aspirin (Aspirin 81mg Chew Tab) 81 mg DAILY PO 02/06/24 09:00 03/07/24 08:59 02/09/24 09:45 81 MG Cefepime HCl (MAXipime 1 GM vial) 1 gm Q8H IVPB 02/02/24 03:00 02/04/24 18:33 DC 02/04/24 13:20 1 GM Cefepime HCl (MAXipime 1 GM vial) 1 gm Q8H IVPB 02/04/24 21:00 02/06/24 13:39 DC 02/06/24 05:42 1 GM Docusate Sodium (COLace 100MG CAP) 100 mg BID PRN PO c 02/01/24 21:00 03/02/24 20:59 Enoxaparin Sodium (Lovenox) 40 mg DAILY SQ 02/02/24 09:00 03/03/24 08:59 02/09/24 09:44 40 MG Hydralazine HCl (APRESOLine 20MG INJ) 10 mg Q2H PRN IV SBP GREATER THAN 160 02/01/24 21:00 03/02/24 20:59 Hydrochlorothiazide (hydroCHLOROthiazide 25MG) 12.5 mg DAILY PO 02/03/24 09:00 03/04/24 08:59 02/09/24 09:44 12.5 MG Insulin Human Regular (humuLIN R 100 UNIT/ML 3ML) INSULIN SLIDING SCAL... ACHS SQ 02/01/24 21:00 03/02/24 20:59 02/09/24 11:04 8 UNIT Lactulose (Constulose 20gm/ 30ml Udcup) 20 gm Q6H PRN PO CONSTIPATION 02/01/24 21:00 03/02/24 20:59 Linagliptin (TradJENTA) 5 mg DAILY PO 02/03/24 09:00 03/04/24 08:59 02/09/24 09:44 5 MG Lisinopril (Prinivil 40mg) 40 mg DAILY PO 02/02/24 14:00 03/03/24 13:59 02/09/24 09:45 40 MG Magnesium Sulfate 50 ml @ 0 mls/hr PROTOCOL PRN IV MAGNESIUM PROTOCOL 02/02/24 11:00 03/03/24 10:59 02/05/24 06:44 10 MLS/HR Ondansetron HCl (zoFRAN 4MG INJ) 4 mg Q6H PRN IVP NAUSEA/VOMITING 02/01/24 21:00 03/02/24 20:59 Pantoprazole Sodium (PROTonix 40MG TAB) 40 mg DAILY PO 02/03/24 09:00 03/04/24 08:59 02/09/24 09:44 40 MG Piperacillin Sod/ Tazobactam Sod 50 ml @ 200 mls/hr STAT STAT IVPB 02/01/24 18:10 02/01/24 18:24 DC 02/01/24 18:52 200 MLS/HR Piperacillin Sod/ Tazobactam Sod (Zosyn 3.375gm+NS 50ml) 3.375 gm Q8H IV 02/06/24 17:00 02/16/24 16:59 02/09/24 09:44 3.375 GM Potassium Chloride 100 ml @ 100 mls/hr AD PRN IV POTASSIUM PROTOCOL 02/02/24 11:00 03/03/24 10:59 Potassium Chloride (K-Dur/Klor-Con 20meq) 20 meq AD PRN PO POTASSIUM PROTOCOL 02/02/24 11:00 03/03/24 10:59 02/07/24 09:01 20 MEQ Potassium Chloride (KCl 10% Elixir 20meq/15ml) 20 meq AD PRN PO POTASSIUM PROTOCOL 02/02/24 11:00 03/03/24 10:59 Prasugrel (Effient 10mg) 10 mg DAILY PO 02/06/24 09:00 03/07/24 08:59 02/09/24 09:44 10 MG Sodium Chloride 1,000 ml @ 150 mls/hr AD IV 02/05/24 18:30 02/06/24 00:29 DC Temazepam (restORIL 15 MG CAP) 15 mg HS PRN PO INSOMNIA/SLEEP 02/01/24 21:00 03/02/24 20:59 Vancomycin HCl 250 ml @ 125 mls/hr Q12H IV 02/01/24 21:00 02/03/24 07:12 DC 02/02/24 19:33 125 MLS/HR Vancomycin HCl 250 ml @ 125 mls/hr Q12H IV 02/03/24 09:00 02/06/24 13:39 DC 02/06/24 10:12 125 MLS/HR Vancomycin HCl (Vancomycin Protocol) 1 each AD IV 02/01/24 21:00 02/06/24 13:39 DC DIAGNOSTICS / RADIOLOGY: [ ] ASSESSMENT: Cellulitis of right foot and right lower extremity, with failed outpatient antibiotic therapy, POA Right toe diabetic foot ulcer/cellulitis, POA Fracture of the distal phalanx proximal aspect with possible intra-articular extension Acute dehydration, POA Acute kidney injury, GFR 69 Diabetes mellitus with hyperglycemia Uncontrolled hypertension Diabetes mellitus type 2, hypertension, left testicular removal Osteomyelitis of the right great toe PLAN: Continue Vancomycin IV and cefepime IV continue Cardiology consulted Infectious disease consulted, appreciate recommendations Podiatry consulted, appreciate recommendations PICC line to be placed Pt will need 6 weeks IV antibiotic therapy Monitor renal and liver function. Monitor electrolytes and treat accordingly. DVT and GI prophylaxis. Disposition: Pending discharge on Sunday as he will need to see PCP for referral [facility] and [facility] will be closed until Sunday MATTHEW PISANO MD Feb 09, 2024 13:18
--- NOTE | 2024-02-09 17:13 | PN ---
INFECTIOUS DISEASE PROGRESS NOTE Date of Service: Feb 09, 2024 SUBJECTIVE: This is a 58-year-old male patient who was seen and examined at bedside in room 316. Patient is awake, alert and oriented x 3. Patient is status post peripheral angiogram with revascularization on 02/05/2024. Patient with polymicrobial infection to the right foot wound with Prevotella Disiens, Enterobacter Cloacae and Enterococcus faecalis.. Dressing to the right foot is clean and dry. Patient is afebrile, temperature is 98.1. Patient continues on Zosyn IV. Patient is pending referral from his PCP at [facility] to authorize for outpatient IV antibiotics with [facility]. Will need to follow up on Sunday. We will continue to monitor patient. PHYSICAL EXAM EYES: Anicteric. Pupils equal and reactive. HENT: No oral thrush seen, moist Oral mucosa. NECK: Supple, no JVD or thyromegaly. LUNGS: Good air entry. No rales, no rhonchi. CARDIOVASCULAR: S1, S2 regular. No murmur heard. ABDOMEN: Soft, non tender, bowel sounds present, no organomegaly CENTRAL NERVOUS SYSTEM: Awake, alert, oriented x 3. SKIN: No rashes, no swelling. Right foot diabetic ulcer. LYMPHATICS: No peripheral lymphadenopathy. MUSCULOSKELETAL: No joint swelling, erythema or tenderness. EXTREMITIES: No cyanosis or clubbing. BACK: No deformity, no pressure ulcer. GENITOURINARY: No dysuria or hematuria. Vital Sign (Last 12 Hours) 02/09/24 02/09/24 02/09/24 02/09/24 08:00 12:00 13:01 16:00 Temp 98.1 98.2 98.2 Pulse 78 64 81 Resp 17 18 16 B/P (MAP) 118/71 117/71 104/72 Pulse Ox 95 97 94 96 O2 Delivery Room Air Room Air Room Air* Room Air O2 Flow Rate 0 FiO2 21 21 21 21 Intake & Output (last 24hrs) 02/08/24 02/08/24 02/09/24 15:00 23:00 07:00 Intake Total 200 ml 100 ml 50.0 ml Balance 200 ml 100 ml 50.0 ml LABS: Laboratory: Test 02/09/24 15:29 02/09/24 10:40 Range/Units Whole Blood Glucose 227 H 70-110 MG/DL Bedside Glucose Comment Notified Nurse ASSESSMENT: Right great toe osteomyelitis. Right foot Diabetic ulcer. Polymicrobial right foot Wound Infection. Right foot Cellulitis. PVD, status post peripheral angiogram with revascularization on 02/05/2024.. Hypertension. PLAN: Continue cefepime IV. Continue vancomycin per pharmacy protocol. Continue GI prophylaxis. Continue pain management. Continue monitoring glucose levels. Continue wound care as recommended by home agent. Patient pending referral from his PCP at [facility] for authorization to [facility] for outpatient IV antibiotic. This case was reviewed and discussed with my supervising physician and the above assessment and plan was formulated and agreed upon. ATTESTATION BY PHYSICIAN I have seen and examined the patient. I reviewed the documentation, medical decision making, and treatment plan as noted by the mid-level provider above. I agree with the findings and plan of care. ESTEBAN NG MD, MIRTA L [facility] Feb 09, 2024 17:13
--- NOTE | 2024-02-09 20:26 | PN ---
SUBJECTIVE: The patient is a very pleasant 58-year-old diabetic, Latin-[place]ian male who is seen, followed up for a fracture to the great toe on the right, osteomyelitis of the great toe on the right, peripheral vascular disease, status post revascularization procedure. Being followed by Infectious Disease, receiving Zosyn. For cultures, grew back Prevotella, Enterobacter cloacae and Enterococcus faecalis. He has a PICC line in place. He is without complaints of pain. He is awaiting placement to an outpatient infusion. REVIEW OF SYSTEMS: CONSTITUTIONAL: No chills, no fevers, no nights weats, no nausea, vomiting, no diarrhea. HEENT: He has peripheral vascular disease. CARDIOVASCULAR: Status post revascularization procedure [facility] the [facility] by [facility]. GENITOURINARY: No dysuria. GASTROINTESTINAL: No dysphagia. ENDOCRINE: Diabetes. PSYCHIATRIC: Denied any depression. MUSCULOSKELETAL: Bunions and hammertoes. INTEGUMENT: He has ingrown toenail surgical site right hallux along the medial border healing well. Ingrown toenail surgical sites showing no signs of infection. He has an plantar ulcer, right great toe, 5 x 5 x 1 mm healing well. Palpable anterior tibial pulse on the right, plantar ulcer on the right, ingrown toenail surgery site on the right. ASSESSMENT: Diabetes, peripheral vascular disease, status post revascularization procedure on the right, polymicrobial wound infection, receiving broad-spectrum antibiotics with the Zosyn, peripheral neuropathy, status post removal of ingrown toenail on the right medial border, status post debridement of plantar ulcer on the right. The patient with osteomyelitis of distal phalanx and fracture of the right great toe. PLAN: We will continue with IV Zosyn. Continue with Medihoney dressings. Continue with offloading measures. The patient will ambulate with use of the CAM walking boot that has been ordered for his right side. We will follow the patient closely while in-house. TID: [id number] RECEIPT: [id number]
[2024-02-09] MEDS: doCUSate SODIUM 100 MG CAP PO PRN (22:22)
[2024-02-10] VITALS (7 sets, daily range): BP systolic 108–122; BP diastolic 59–71; PULSE 69–74; RESP 16–19; TEMP 98–98.7; O2SAT 93–97
[2024-02-10 06:19] LABS: BASOPHILS # (AUTO) 0.07 K/uL (0.00-0.20); BASOPHILS % (AUTO) 0.9 % (0.0-5.0); EOSINOPHILS # (AUTO) 0.36 K/uL (0.00-0.70); EOSINOPHILS % (AUTO) 4.7 % (0.0-8.0); IMMATURE GRANULOCYTE ABSOLUTE 0.06 K/uL (0-1); LYMPHOCYTES # (AUTO) 1.3 K/uL (1.0-4.8); LYMPHOCYTES % (AUTO) 17.3 % (21.0-51.0); MEAN CORPUSCULAR HEMOGLOBIN 32.3 pg (27.0-33.0); MEAN CORPUSCULAR HGB CONC 34.9 g/dL (32.0-36.0); MEAN CORPUSCULAR VOLUME 92.6 fL (79-99); MONOCYTES # (AUTO) 0.5 K/uL (0.1-1.0); NEUTROPHILS # (AUTO) 5.3 K/uL (1.8-7.7); NEUTROPHILS % (AUTO) 69.3 % (40.0-77.0); PLATELET COUNT (AUTO) 248 K/uL (130-400); RED BLOOD CELL COUNT(AUTO) 4.21 MIL/uL (4.50-6.20); RED CELL DISTRIBUTION WIDTH 11.6 % (11.0-15.5); WHITE BLOOD COUNT (AUTO) 7.6 K/uL (4.8-10.8)
[2024-02-10 06:45] LABS: MAGNESIUM 1.7 mg/dL (1.80-2.40); PHOSPHORUS 4.2 mg/dL (2.5-4.9); POTASSIUM 3.4 mmol/L (3.5-5.1)
--- NOTE | 2024-02-10 12:20 | PN ---
[facility] PROGRESS NOTE Date of Service: Feb 10, 2024 Time of Service: 12: SUBJECTIVE: 02/01: [ Edvin Callahan is a 58-year-old male who approximately two months ago tripped and traumatizes right great toe. He did not seek medical attention at the time. Over the past week he noticed increased redness and some pus coming out of his right great toenail and so he sought medical attention here at [facility]. He is a diabetic who does not know what his blood sugars are A1c usually run. The nurse mentioned that his last sugar checked was [address] Kaiser the electro mechanical technologist has already been by and evaluated the patient and dressed his foot an MRI has been ordered and done. 02/02: Patient went down for bilateral CT angio of the aorta with runoffs and is back. He states he felt warm when they injected the iodine contrast. He denies any chest pain or shortness of breath. No nausea or vomiting or diarrhea. His appetite is intact he is urinating and defecating normally. 02/03 patient seen at bedside, no acute events overnight. Patient has been evaluated by cardiology who is planning a skilled labor procedure with possible intervention, will follow up post procedure. Lab holiday today. 02/04 patient seen at bedside, no acute events overnight. Pending skilled labor procedure sometime today, we will follow up with Cardiology recommendations. He has been afebrile, hemodynamically stable saturating well on room air. Labs are unremarkable. Continue with empiric antibiotics. 02/05 patient seen at bedside, no acute events overnight. Patient taken to skilled labor yesterday with successful revascularization procedure performed by Lynette molina, tolerated the procedure well see the op note for more details. Patient will need six weeks of IV antibiotics per Infectious Disease, patient will need to go to their PCP for a referral to the [facility], subclinical we will not be open until Sunday after the holiday, patient will need to stay in the hospital over the weekend. We will order PICC line placement in the meantime and continue to monitor the patient's progress. 02/06 patient seen at bedside, no acute events overnight. His vitals and labs are stable. He continues with IV antibiotics until Sunday when he may discharge to follow up with his PCP 02/07 patient seen at bedside, no acute events overnight. His vitals and labs are stable. He continues with IV antibiotics until Sunday when he may discharge to follow up with his PCP 02/08 patient seen at bedside, no acute events overnight. His vitals are stable, lab holiday today. He continues with IV antibiotics until Sunday when he may discharge to follow up with his PCP 02/09 patient seen at bedside, no acute events overnight. His vitals are stable, lab holiday today. He continues with IV antibiotics until Sunday when he may discharge to follow up with his PCP for referral to [facility] REVIEW OF SYSTEMS 12-point ROS reviewed with the patient. All pertinent positives mentioned above. Otherwise negative, non-pertinent, or noncontributory. PHYSICAL EXAM GENERAL APPEARANCE: The patient is awake, alert, and oriented, in no acute cardiopulmonary distress. NEUROLOGICAL: Cranial nerves II-XII grossly intact. Motor is 5/5 in bilateral upper and lower extremities proximal to distal. No sensory deficits. HEENT: Face is symmetric. Pupils are equal and reactive. Extraocular movements are intact. NECK: Supple. No JVD. No thyromegaly. No submental, submandibular, pre- /postauricular, occipital or supraclavicular lymphadenopathy. CHEST: Normal chest expansion. No Telemetry. LUNGS: Absence of any rales, rhonchi or any wheezing. CARDIOVASCULAR: Regular. S1 and S2 normal. No appreciable rubs, murmurs or gallops. ABDOMEN: Soft, nontender, and nondistended. There is no rebound, voluntary guarding, or rigidity. : Deferred. No Obrien. EXTREMITIES: Non-edematous and not cyanotic. No clubbing. Good capillary refill. Right toe and foot is wrapped in both Vaseline gauze dressing and then an external dry Mainor bandage. Second toe of the right foot shows delayed capillary refill nonpalpable pulses of right and left dorsalis pedis noted nonpalpable popliteal on the right palpable on the left. SKIN: No skin breakdown. Lower leg edema has resolved Vital Signs (last 8hr) Date Time Temp Pulse Resp B/P (MAP) Pulse Ox O2 Delivery O2 Flow Rate FiO2 02/10/24 12:00 98.1 70 18 116/70 96 Room Air 02/10/24 08:00 98.1 69 18 122/71 93 Room Air LABS: Laboratory: Test 02/10/24 06:00 12/1/24 05:13 02/09/24 10:40 Range/Units White Blood Count 7.6 4.8-10.8 K/uL Red Blood Count 4.21 L 4.50-6.20 MIL/uL Hemoglobin 13.6 L 14.0-18.0 g/dL Hematocrit 39.0 L 42-54 % Mean Corpuscular Volume 92.6 79-99 fL Mean Corpuscular Hemoglobin 32.3 27.0-33.0 pg Mean Corpuscular Hemoglobin Concent 34.9 32.0-36.0 g/dL Red Cell Distribution Width 11.6 11.0-15.5 % Platelet Count 248 130-400 K/uL Mean Platelet Volume 9.9 7.5-10.5 fL Immature Granulocyte % (Auto) 0.8 0-1 % Neutrophils (%) (Auto) 69.3 40.0-77.0 % Lymphocytes (%) (Auto) 17.3 L 21.0-51.0 % Monocytes (%) (Auto) 7.0 3.0-13.0 % Eosinophils (%) (Auto) 4.7 0.0-8.0 % Basophils (%) (Auto) 0.9 0.0-5.0 % Neutrophils # (Auto) 5.3 1.8-7.7 K/uL Lymphocytes # (Auto) 1.3 1.0-4.8 K/uL Monocytes # (Auto) 0.5 0.1-1.0 K/uL Eosinophils # (Auto) 0.36 0.00-0.70 K/uL Basophils # (Auto) 0.07 0.00-0.20 K/uL Absolute Immature Granulocyte (auto 0.06 0-1 K/uL Nucleated Red Blood Cells 0.0 0.0-0.19 % Sodium Level 141 136-145 mmol/L Potassium Level 3.4 L 3.5-5.1 mmol/L Chloride Level 103 101-111 mmol/L Carbon Dioxide Level 29 21-32 mmol/L Blood Urea Nitrogen 19 H 7-18 mg/dL Creatinine 1.0 0.5-1.3 mg/dL Glomerular Filtration Rate Calc 86 >90 mL/min Random Glucose 165 H 70-105 mg/dL Total Calcium 8.7 8.5-10.1 mg/dL Phosphorus Level 4.2 2.5-4.9 mg/dL Magnesium Level 1.70 L 1.80-2.40 mg/dL Whole Blood Glucose 160 H 70-110 MG/DL Bedside Glucose Comment Notified Nurse Current Medications Medications (Trade) Dose Ordered Sig/Adria Route PRN Reason Start Time Stop Time Status Last Admin Dose Admin Acetaminophen (TYLenol 325MG TAB) 650 mg Q6H PRN PO FEVER/MILD PAIN LEVEL 1-3 02/01/24 21:00 03/02/24 20:59 Acetaminophen (TYLenol 650MG SUPPOSITORY) 650 mg Q6H PRN RC FEVER / MILD PAIN 1-3 IF NPO 02/01/24 21:00 03/02/24 20:59 Acetaminophen/ Hydrocodone Bitart (NORco 5/325MG) 1 tab Q6H PRN PO MODERATE PAIN (4-6) 02/01/24 21:00 02/06/24 20:59 DC Aspirin (Aspirin 81mg Chew Tab) 81 mg DAILY PO 02/06/24 09:00 03/07/24 08:59 02/10/24 08:26 81 MG Cefepime HCl (MAXipime 1 GM vial) 1 gm Q8H IVPB 02/02/24 03:00 02/04/24 18:33 DC 02/04/24 13:20 1 GM Cefepime HCl (MAXipime 1 GM vial) 1 gm Q8H IVPB 02/04/24 21:00 02/06/24 13:39 DC 02/06/24 05:42 1 GM Docusate Sodium (COLace 100MG CAP) 100 mg BID PRN PO c 02/01/24 21:00 03/02/24 20:59 02/09/24 22:22 100 MG Enoxaparin Sodium (Lovenox) 40 mg DAILY SQ 02/02/24 09:00 03/03/24 08:59 02/09/24 09:44 40 MG Hydralazine HCl (APRESOLine 20MG INJ) 10 mg Q2H PRN IV SBP GREATER THAN 160 02/01/24 21:00 03/02/24 20:59 Hydrochlorothiazide (hydroCHLOROthiazide 25MG) 12.5 mg DAILY PO 02/03/24 09:00 03/04/24 08:59 02/10/24 08:26 12.5 MG Insulin Human Regular (humuLIN R 100 UNIT/ML 3ML) INSULIN SLIDING SCAL... ACHS SQ 02/01/24 21:00 03/02/24 20:59 02/09/24 20:14 14 UNIT Lactulose (Constulose 20gm/ 30ml Udcup) 20 gm Q6H PRN PO CONSTIPATION 02/01/24 21:00 03/02/24 20:59 Linagliptin (TradJENTA) 5 mg DAILY PO 02/03/24 09:00 03/04/24 08:59 02/10/24 08:26 5 MG Lisinopril (Prinivil 40mg) 40 mg DAILY PO 02/02/24 14:00 03/03/24 13:59 02/10/24 08:26 40 MG Magnesium Sulfate 50 ml @ 0 mls/hr PROTOCOL PRN IV MAGNESIUM PROTOCOL 02/02/24 11:00 03/03/24 10:59 02/05/24 06:44 10 MLS/HR Ondansetron HCl (zoFRAN 4MG INJ) 4 mg Q6H PRN IVP NAUSEA/VOMITING 02/01/24 21:00 03/02/24 20:59 Pantoprazole Sodium (PROTonix 40MG TAB) 40 mg DAILY PO 02/03/24 09:00 03/04/24 08:59 02/10/24 08:26 40 MG Piperacillin Sod/ Tazobactam Sod 50 ml @ 200 mls/hr STAT STAT IVPB 02/01/24 18:10 02/01/24 18:24 DC 02/01/24 18:52 200 MLS/HR Piperacillin Sod/ Tazobactam Sod (Zosyn 3.375gm+NS 50ml) 3.375 gm Q8H IV 02/06/24 17:00 02/16/24 16:59 02/10/24 08:26 3.375 GM Potassium Chloride 100 ml @ 100 mls/hr AD PRN IV POTASSIUM PROTOCOL 02/02/24 11:00 03/03/24 10:59 Potassium Chloride (K-Dur/Klor-Con 20meq) 20 meq AD PRN PO POTASSIUM PROTOCOL 02/02/24 11:00 03/03/24 10:59 02/10/24 08:32 20 MEQ Potassium Chloride (KCl 10% Elixir 20meq/15ml) 20 meq AD PRN PO POTASSIUM PROTOCOL 02/02/24 11:00 03/03/24 10:59 Prasugrel (Effient 10mg) 10 mg DAILY PO 02/06/24 09:00 03/07/24 08:59 02/10/24 08:26 10 MG Sodium Chloride 1,000 ml @ 150 mls/hr AD IV 02/05/24 18:30 02/06/24 00:29 DC Temazepam (restORIL 15 MG CAP) 15 mg HS PRN PO INSOMNIA/SLEEP 02/01/24 21:00 03/02/24 20:59 Vancomycin HCl 250 ml @ 125 mls/hr Q12H IV 02/01/24 21:00 02/03/24 07:12 DC 02/02/24 19:33 125 MLS/HR Vancomycin HCl 250 ml @ 125 mls/hr Q12H IV 02/03/24 09:00 02/06/24 13:39 DC 02/06/24 10:12 125 MLS/HR Vancomycin HCl (Vancomycin Protocol) 1 each AD IV 02/01/24 21:00 02/06/24 13:39 DC DIAGNOSTICS / RADIOLOGY: [ ] ASSESSMENT: Cellulitis of right foot and right lower extremity, with failed outpatient antibiotic therapy, POA Right toe diabetic foot ulcer/cellulitis, POA Fracture of the distal phalanx proximal aspect with possible intra-articular extension Acute dehydration, POA Acute kidney injury, GFR 69 Diabetes mellitus with hyperglycemia Uncontrolled hypertension Diabetes mellitus type 2, hypertension, left testicular removal Osteomyelitis of the right great toe PLAN: Continue Vancomycin IV and cefepime IV continue Cardiology consulted Infectious disease consulted, appreciate recommendations Podiatry consulted, appreciate recommendations PICC line to be placed Pt will need 6 weeks IV antibiotic therapy Monitor renal and liver function. Monitor electrolytes and treat accordingly. DVT and GI prophylaxis. Disposition: Pending discharge on Sunday as he will need to see PCP for referral to [facility] and [facility] will be closed until Sunday MATTHEW PISANO MD Feb 10, 2024 12:20
--- NOTE | 2024-02-10 12:53 | PN ---
INFECTIOUS DISEASE PROGRESS NOTE Date of Service: Feb 10, 2024 SUBJECTIVE: This is a 58-year-old male patient who was seen and examined at bedside in room 316. Patient is awake, alert and oriented x 3. Patient is status post peripheral angiogram with revascularization on 02/05/2024. Patient with polymicrobial infection to the right foot wound. No fever this morning, temperature is 98.1 and a WBC of 7.6. Continues on Zosyn IV. Patient is pending referral from his PCP at [facility] to authorize for outpatient IV antibiotics with [facility]. Case management to follow up on status tomorrow. We will continue to monitor patient. PHYSICAL EXAM EYES: Anicteric. Pupils equal and reactive. HENT: No oral thrush seen, moist Oral mucosa. NECK: Supple, no JVD or thyromegaly. LUNGS: Good air entry. No rales, no rhonchi. CARDIOVASCULAR: S1, S2 regular. No murmur heard. ABDOMEN: Soft, non tender, bowel sounds present, no organomegaly CENTRAL NERVOUS SYSTEM: Awake, alert, oriented x 3. SKIN: No rashes, no swelling. Right foot diabetic ulcer. LYMPHATICS: No peripheral lymphadenopathy. MUSCULOSKELETAL: No joint swelling, erythema or tenderness. EXTREMITIES: No cyanosis or clubbing. BACK: No deformity, no pressure ulcer. GENITOURINARY: No dysuria or hematuria. Vital Sign (Last 12 Hours) 02/10/24 02/10/24 02/10/24 04:00 08:00 12:00 Temp 98.8 98.1 98.1 Pulse 71 69 70 Resp 16 18 18 B/P (MAP) 108/59 122/71 116/70 Pulse Ox 96 93 96 O2 Delivery Room Air Room Air Room Air Intake & Output (last 24hrs) 02/09/24 02/09/24 02/10/24 15:00 23:00 07:00 Intake Total 680 ml 50.0 ml Balance 680 ml 50.0 ml LABS: Laboratory: Test 02/10/24 06:00 02/10/24 05:13 02/09/24 10:40 Range/Units White Blood Count 7.6 4.8-10.8 K/uL Red Blood Count 4.21 L 4.50-6.20 MIL/uL Hemoglobin 13.6 L 14.0-18.0 g/dL Hematocrit 39.0 L 42-54 % Mean Corpuscular Volume 92.6 79-99 fL Mean Corpuscular Hemoglobin 32.3 27.0-33.0 pg Mean Corpuscular Hemoglobin Concent 34.9 32.0-36.0 g/dL Red Cell Distribution Width 11.6 11.0-15.5 % Platelet Count 248 130-400 K/uL Mean Platelet Volume 9.9 7.5-10.5 fL Immature Granulocyte % (Auto) 0.8 0-1 % Neutrophils (%) (Auto) 69.3 40.0-77.0 % Lymphocytes (%) (Auto) 17.3 L 21.0-51.0 % Monocytes (%) (Auto) 7.0 3.0-13.0 % Eosinophils (%) (Auto) 4.7 0.0-8.0 % Basophils (%) (Auto) 0.9 0.0-5.0 % Neutrophils # (Auto) 5.3 1.8-7.7 K/uL Lymphocytes # (Auto) 1.3 1.0-4.8 K/uL Monocytes # (Auto) 0.5 0.1-1.0 K/uL Eosinophils # (Auto) 0.36 0.00-0.70 K/uL Basophils # (Auto) 0.07 0.00-0.20 K/uL Absolute Immature Granulocyte (auto 0.06 0-1 K/uL Nucleated Red Blood Cells 0.0 0.0-0.19 % Sodium Level 141 136-145 mmol/L Potassium Level 3.4 L 3.5-5.1 mmol/L Chloride Level 103 101-111 mmol/L Carbon Dioxide Level 29 21-32 mmol/L Blood Urea Nitrogen 19 H 7-18 mg/dL Creatinine 1.0 0.5-1.3 mg/dL Glomerular Filtration Rate Calc 86 >90 mL/min Random Glucose 165 H 70-105 mg/dL Total Calcium 8.7 8.5-10.1 mg/dL Phosphorus Level 4.2 2.5-4.9 mg/dL Magnesium Level 1.70 L 1.80-2.40 mg/dL Whole Blood Glucose 160 H 70-110 MG/DL Bedside Glucose Comment Notified Nurse ASSESSMENT: Right great toe osteomyelitis. Right foot Diabetic ulcer. Polymicrobial right foot Wound Infection. Right foot Cellulitis. PVD, status post peripheral angiogram with revascularization on 02/05/2024.. Hypertension. PLAN: Continue cefepime IV. Continue vancomycin per pharmacy protocol. Continue GI prophylaxis. Continue pain management. Continue monitoring glucose levels. Continue wound care as recommended by pararescue craftsman. Patient pending referral from his PCP at [facility] for authorization to [facility] for outpatient IV antibiotic. This case was reviewed and discussed with my supervising physician and the above assessment and plan was formulated and agreed upon. ATTESTATION BY PHYSICIAN I have seen and examined the patient. I reviewed the documentation, medical decision making, and treatment plan as noted by the mid-level provider above. I agree with the findings and plan of care. ESTEBAN NG MD, [facility] Feb 10, 2024 12:52
[2024-02-11] VITALS: BP 131/67; PULSE 61; RESP 17; TEMP 98.6
[2024-02-11 04:00] VITALS: BP 125/67; PULSE 62; RESP 18; TEMP 99
[2024-02-11 06:03] LABS: BASOPHILS # (AUTO) 0.06 K/uL (0.00-0.20); BASOPHILS % (AUTO) 0.8 % (0.0-5.0); EOSINOPHILS # (AUTO) 0.32 K/uL (0.00-0.70); EOSINOPHILS % (AUTO) 4.5 % (0.0-8.0); HEMATOCRIT 38.4 % (42-54); IMMATURE GRANULOCYTE ABSOLUTE 0.06 K/uL (0-1); LYMPHOCYTES # (AUTO) 1.5 K/uL (1.0-4.8); LYMPHOCYTES % (AUTO) 20.4 % (21.0-51.0); MEAN CORPUSCULAR HEMOGLOBIN 32.4 pg (27.0-33.0); MEAN CORPUSCULAR HGB CONC 34.6 g/dL (32.0-36.0); MEAN CORPUSCULAR VOLUME 93.4 fL (79-99); MONOCYTES # (AUTO) 0.5 K/uL (0.1-1.0); MONOCYTES % (AUTO) 7.3 % (3.0-13.0); NEUTROPHILS # (AUTO) 4.7 K/uL (1.8-7.7); NEUTROPHILS % (AUTO) 66.2 % (40.0-77.0); PLATELET COUNT (AUTO) 241 K/uL (130-400); RED BLOOD CELL COUNT(AUTO) 4.11 MIL/uL (4.50-6.20); RED CELL DISTRIBUTION WIDTH 11.4 % (11.0-15.5); WHITE BLOOD COUNT (AUTO) 7.2 K/uL (4.8-10.8)
[2024-02-11 06:14] LABS: POTASSIUM 3.7 mmol/L (3.5-5.1)
--- NOTE | 2024-02-11 06:37 | PN ---
SUBJECTIVE: The patient is a 58-year-old diabetic, Latin-[place] male, who is followed for fractures, right great toe, osteomyelitis of the right great toe, peripheral vascular disease, status post revascularization procedure on the right, being followed by Infectious Disease, receiving Zosyn. For cultures, grew back Prevotella, Enterobacter cloacae and Enterococcus faecalis. He has a PICC line in place. He is without complaints of pain. He is awaiting placement for outpatient antibiotic therapy. REVIEW OF SYSTEMS: CONSTITUTIONAL: No chills, no fevers, no night sweats, no nausea, vomiting, no diarrhea. HEENT: No problems with eyes, ears, nose or throat. CARDIOVASCULAR: He is status post revascularization procedure on the right by [facility]. GENITOURINARY: No dysuria. GASTROINTESTINAL: No dysphagia. ENDOCRINE: Diabetes. PSYCHIATRIC: Denied any depression. MUSCULOSKELETAL: Bunions and hammertoes. INTEGUMENT: He has an ingrown toenail surgery site, right hallux medial border. He has a plantar ulcer to the right great toe. It is measuring 5 mm x 5 mm x 1 mm, healing well. He has palpable anterior tibial pulse on the right. OBJECTIVE: His examination today, ingrown toenail surgical site and plantar ulcer on the right are healing well, decreased edema, decreased erythema, palpable anterior tibial pulse, nonpalpable posterior tibial pulse. ASSESSMENT: Diabetes, peripheral vascular disease, status post revascularization procedure on the right, polymicrobial wound infection, receiving broad-spectrum antibiotics with Zosyn. The patient with peripheral neuropathy, status post removal of ingrown toenail on the right medial border, status post debridement of a plantar ulcer on the right. The patient with osteomyelitis of distal phalanx and fracture of the right great toe. PLAN: We will continue with IV Zosyn. Continue with Medihoney dressings. Continue with offloading measures with the use of the CAM walking boot or a surgical shoe. Continue to follow the patient closely while in-house. From my standpoint, the patient will be discharged, follow up as an outpatient. TID: [id number] RECEIPT: [id number]
[2024-02-11 08:00] VITALS: O2SAT 97
[2024-02-11 08:23] VITALS: BP 136/76; PULSE 60; RESP 16; TEMP 98.1
--- NOTE | 2024-02-11 10:56 | DS ---
Discharge Summary Hospital Course Summary: [ Brandon Steel is a 58-year-old male who approximately two months ago tripped and traumatizes right great toe. He did not seek medical attention at the time. Over the past week he noticed increased redness and some pus coming out of his right great toenail and so he sought medical attention here at [facility] Emergency Department. During the course of stay patient was followed by fretted instruments inspector, superintendent oil well services's and Infectious Disease. Patient underwent bilateral CT angio of the aorta with runoffs per Dr. Cao. will be discharged on asa 81 mg daily and Prasugrel 10 mg daily will follow up DR Reeves [address] Diana infected ulcer to the plantar aspect of the right great toe and infected ingrown toenail to the right hallux along the medial border. The patient underwent , debrided the infected ulcer to the plantar aspect of the right great toe interphalangeal joint area. debrided slough, fibrin, necrotic fibrin, dysvascular-appearing skin, and subcutaneous tissues down to including level of the subcutaneous tissue in an area that measured postdebridement 10 x 15 x 4 mm for a total area of sharp excisional debridement of 1.5 cm2. Family and patient was taught on dressing changes Medihoney as directed by ID. MRI evidence of osteomyelitis. ID also followed the patient will need usp IV antibiotics: discharged home with [facility]. PATIENT WILL FOLLOW-UP WITH HIS PCP TOMORROW AT 8:00 A.M. AND GET A REFERRAL authorization to [facility] for outpatient IV antibiotic. THE PATIENT IS CLINICALLY STABLE FOR DISCHARGE. HEMODYNAMICALLY STABLE. Community Relations Advisor(s): RUN DATE: 02/05/24 [facility] PAGE 1 RUN TIME: [id number] [address], [place] [address] Department of Laboratories [facility] # [id number] Windows Desktop Support: Javier Duncan DO Specimen Report PATIENT: BRANDON STEEL ACCT: [id number] LOC: [facility] U: [id number] AGE/SX: 58/M ROOM: 316 RE02/01/[address]: MATTHEW PISANO MD : 1965 BED: 1 DIS: STATUS: ADM IN TLOC: SPEC: [id number] SHAN: 02/01/24 STATUS: COMP REQ: [id number] RECD: 02/02/[address]: KESHAWN GARRIDO [facility] SOURCE: FOOT ENTR: 02/02/[address]: PATIENCE BURDEN MD SPDESC: FOOT RIGHT MATTHEW PISANO MD ORDERED: BRADY CULTURE, AEROBIC CULTURE COMMENTS: Has specimen been collected/obtained? Y Specimen Comment: GREAT TOE Has specimen been collected/obtained? Y Specimen Comment: GREAT TOE Has specimen been collected/obtained? Y Specimen Comment: GREAT TOE Has specimen been collected/obtained? Y Specimen Comment: GREAT TOE Has specimen been collected/obtained? Y Specimen Comment: GREAT TOE Has specimen been collected/obtained? Y Specimen Comment: GREAT TOE Has specimen been collected/obtained? Y Specimen Comment: GREAT TOE Has specimen been collected/obtained? Y Specimen Comment: GREAT TOE Has specimen been collected/obtained? Y Specimen Comment: GREAT TOE Has specimen been collected/obtained? Y Specimen Comment: GREAT TOE Has specimen been collected/obtained? Y Specimen Comment: GREAT TOE Has specimen been collected/obtained? Y Specimen Comment: GREAT TOE Has specimen been collected/obtained? Y Specimen Comment: GREAT TOE Has specimen been collected/obtained? Y Specimen Comment: GREAT TOE Procedure Result Iban Date-Time ANAEROBIC CULTURE Final 02/05/24-1408 MRL COLONY DESCRIPTION: REPORT 1: NO ANAEROBES AT 24-35 HOURS; STUDIES TO CONTINUE REPORT 2: NO ANAEROBES AT 48-59 HOURS; STUDIES TO CONTINUE REPORT 3: 1+ GRAM NEGATIVE RODS POSSIBLE ANAEROBE ISOLATED IDENTIFICATION TO FOLLOW BETA LACTAMASE POSITIVE NO FURTHER WORK-UP DONE PREVOTELLA DISIENS RUN DATE: 02/05/24 [facility] PAGE 2 RUN TIME: [id number] [place] [address] Department of Laboratories [facility] # [id number] Windows Desktop Support: Javier Duncan DO Specimen Report SPEC: [id number] PATIENT: DAMIÁNBRANDON [id number] (Continued) Procedure Result Iban Date-Time CONTINUED ON NEXT PAGE RUN DATE: 02/05/24 [facility] PAGE 3 RUN TIME: [address] [address], [place] [id number] Department of [employer] CLIA # [id number] Windows Desktop Support: Javier Duncan DO Specimen Report SPEC: [id number] PATIENT: BRANDON STEEL [id number] (Continued) Procedure Result Iban Date-Time - ANAEROBIC CULTURE Final (continued) 02/05/24 Test(s) performed by: [facility] [address] [place] [address] AEROBIC CULTURE Final 02/04/247000 [facility] COLONY DESCRIPTION: REPORT 1: 2+ GRAM NEGATIVE RODS IDENTIFICATION AND SENSITIVITY TO FOLLOW REPORT 2: 1+ GRAM POSITIVE COCCI IN CHAINS POSSIBLE ENTEROCOCCUS SPECIES . IDENTIFICATION AND SENSITIVITY TO FOLLOW NO FURTHER WORK-UP DONE ENTEROBACTER CLOACAE ENTEROCOCCUS FAECALIS ENT CLOAC E FAECALIS M.I.C. RX M.I.C. RX --------- ---- --------- ---- AMPICILLIN <=2 S AZTREONAM <=4 S CEFTAZIDIME <=1 S CEFTAZIDIME/AVIBACTAM <=8 S GENTAMICIN <=2 S LEVOFLOXACIN <=0.5 S VANCOMYCIN 1 S GENTAMICIN Synergy Screen <=500 S MEROPENEM <=1 S PENICILLIN 2 S PIPERACILLIN/TAZOBACTAM <=8 S TRIMETHOPRIM/SUFLAMETHOXAZOLE <=2/38 S ENTEROCOCCUS FAECALIS: POSITIVE COMBO 34 Gentamicin Synergy Screen S @ [facility] Test Performed at: [facility] [address], [place], [place] Medical Hand Wood Sander: Leonardo Herrera D.O. END OF REPORT Procedure(s): PROCEDURE NOTE Name: BRANDON STEEL Acct: [id number] MR: [id number] : 1965 Admit Date: 02/01/24 CHEN CAO MD [facility] [address] [place] [address] Abdominal Aortogram With Pelvic Runoff, Right Lower Extremity Digital Subtraction Arteriogram, Right Anterior Tibial Angioplasty With Drug Coated Balloon And Dionisio To Focal Anterior Tibial Dissection Indication: Nitin Stage Five Peripheral Arterial Disease Technique: Patient was brought to the lab in a fasting state after informed consent and sedated with 1 mg Versed and 50 mcg fentanyl. He did not feel any sedation from this and it appeared the IV was infiltrated so a 2nd IV was started and an additional 1 mg Versed and 50 mcg fentanyl was administered. Under local anesthesia with 1% lidocaine using micropuncture technique under fluoroscopic and ultrasound guidance the left common femoral artery was punctured anteriorly and a six Divehi sheath was inserted. An Omni flush catheter was positioned in the distal abdominal aorta and an abdominal aortogram with pelvic runoff was obtained by digital subtraction. The Omni flush was then repositioned in the right SFA and digital subtraction arteriogram were obtained sequentially to the foot. An exchange was made for a six Divehi 90 cm sheath which was positioned in the right popliteal and the right anterior tibial was wired with a 300 cm Regalia guidewire. A 120 x 3 mm chocolate balloon was used to cross the diffuse disease from the proximal calf to the midpoint of the segment between the ankle and calf. A 14 atmosphere inflation was performed and results were inspected angiographically. We exchanged for a 2.5 x 40 mm chocolate balloon with which we dilated the distal segment of disease. Runoff was substantially enhanced and we then exchanged for a 4 x 150 mm DCP with which we applied low three atmosphere pressure to the entire length of the treated segment. Runoff was less impressive after this was completed and so we exchanged for a three by 40 mm drug-eluting stent with which we stented the midportion of the treated segment where a dissection appeared to be limiting flow. This resulted in anabaptist of normal flow. Final digital subtraction arteriogram were obtained in orthogonal projections and the sheath was removed. Hemostasis was obtained by use of Perclose with excellent hemostasis and no complications. Patient received 90 mL contrast, 60 mg prasugrel, 325 mg aspirin, and weight based heparin for this procedure. Results: The distal abdominal aorta and the pelvic vessels are free of disease. The common femoral, profunda femoral, and superficial femoral on the right si de are free of disease, as is the popliteal. The tibioperoneal and posterior tibial are free of disease and the tibioperoneal and posterior tibial are large diameter vessels with brisk flow to the foot; the SECURITY SALES MANAGER reaches the plantar arch. The peroneal is widely patent to a point about 6 cm above the ankle, where it is totally occluded. The right anterior tibial is notable for a segmental 40% proximal narrowing, then commencing in proximal calf there is a diffusely diseased segment that extends all the way through the calf, to a point about midway between the calf and the ankle. This segment is about 140 mm in length and diffusely narrowed by 90-95% with KRISTOPHER one flow to the foot. Interventional Results: The diffusely diseased segment in the anterior tibial is reduced to less than 10% residual and after tacking the dissection there was brisk flow all the way to the plantar arch and digital vessels. Conclusions: Right peroneal disease is not relevant and is limited to the distal end of the vessel. Right anterior tibial disease was severe and diffuse and excellent results are achieved with revascularization using DCB and drug-eluting stent. CHEN CAO MD Feb 05, 2024 18:33 REASON: PVD ORDERING PHYSICIAN: AVERY REEVES MD PROCEDURE: CTA ABDAOR - CT ANGIO ABD AORTA W RUNOFF CT ANGIO ABD AORTA W RUNOFF HISTORY: PVD TECHNIQUE: CT angiography of the abdomen, pelvis and bilateral lower extremity was performed. Coronal, sagittal MIP and 3-D images were also reconstructed. CT was performed with one or more of the following dose reduction techniques: Automated exposure control, adjustment of the mA and/or kV according to the patient's size, or use of the iterative reconstruction technique. Contrast: 125 cc of contrast FINDINGS: Vascular: Opacification of the arterial system is degraded due to poor contrast timing. There is atherosclerotic changes of the aorta with calcified and soft plaques. No aortic aneurysm or dissection is seen. Atherosclerotic changes of the bilateral common iliac and external iliac arteries are seen. Atherosclerotic changes with moderate severe narrowing in the distal bilateral SFA. The study is markedly degraded due to poor contrast opacification. Moderate narrowing seen in the bilateral popliteal arteries. Evaluation of the arteries in the calf is markedly degraded due to dense plaque and poor opacification. Three-vessel runoff is seen in the proximal bilateral calf. Extensive atherosclerotic changes are seen in the bilateral anterior tibial arteries with multiple areas of high-grade stenosis/occlusion, more pronounced distally. Nonvascular: There is mild hepatic steatosis. No calcified gallstone is seen. No acute findings in the spleen, pancreas and adrenal glands. There is no hydronephrosis. Small right renal cyst is noted. Diffuse urinary bladder wall thickening concerning for cystitis. Correlate with urinalysis. There is mild constipation. No bowel obstruction is seen. Normal appendix. Small fat-containing umbilical hernia is seen. Few foci of air seen in the right lower quadrant abdominal wall suggesting subcutaneous injection. Degenerative changes of the spine are noted. IMPRESSION: Findings as described above. Study is markedly degraded due to poor arterial opacification. REASON: RULE OUT OSTEOMYELITIS ORDERING PHYSICIAN: ASHVIN DIANA DPM PROCEDURE: FT RT WO - MR FOOT RIGHT WO Exam Type: MR FOOT RIGHT WO Clinical Information: RULE OUT OSTEOMYELITIS Comparison: None Technique: Multiecho multiplanar sequences are done without contrast administration. FINDINGS: There is high signal intensity of the marrow of the distal phalanx of the first of consistent with osteomyelitis. No other areas of marrow edema are seen. There are no fractures. There are no areas of bone destruction elsewhere. Soft tissue evaluation demonstrates increased fluid consistent with cellulitis or swelling. No fluid collections are noted to suggest abscess formation. IMPRESSION: Findings consistent with osteomyelitis of the distal phalanx of the first toe. REASON: PVD ORDERING PHYSICIAN: ASHVIN DIANA DPM PROCEDURE: ART B LE - US ARTERIAL BILAT LOW EXT DUPL US ARTERIAL BILAT LOW EXT DUPL HISTORY: PVD TECHNIQUE: Real-time arterial doppler ultrasound of the lower extremity was performed using B mode, color flow and spectral analysis. FINDINGS: RIGHT: Abnormal monophasic waveform seen in the posterior tibial and anterior tibial arteries. Occluded dorsalis pedis artery. The remaining arteries demonstrate biphasic and triphasic waveforms. LEFT: Abnormal monophasic waveform seen in the anterior tibial and dorsalis pedis arteries suggesting proximal flow-limiting stenosis. The remaining arteries demonstrate normal biphasic and triphasic waveforms. IMPRESSION: RIGHT: Abnormal monophasic waveform seen in the posterior tibial and anterior tibial arteries. Occluded dorsalis pedis artery. The remaining arteries demonstrate biphasic and triphasic waveforms. LEFT: Abnormal monophasic waveform seen in the anterior tibial and dorsalis pedis arteries suggesting proximal flow-limiting stenosis. The remaining arteries demonstrate normal biphasic and triphasic waveforms. Assessment/Plan: Discharged dx's; polymicrobial wound infection, right foot Cellulitis of right foot and right lower extremity, with failed outpatient anti biotic therapy, POA Right toe diabetic foot ulcer/cellulitis, POA status post revascularization procedure on the right, on 02/05/2024 Fracture of the distal phalanx proximal aspect with possible intra-articular extension Acute dehydration, POA resolved Acute kidney injury, GFR 69 resolved Diabetes mellitus with hyperglycemia A1c 8.2 Uncontrolled hypertension improved Diabetes mellitus type 2, hypertension, left testicular removal Osteomyelitis of the right great toe PLAN: ADMISSION DATE: 02/01/2024 DISCHARGE DATE: 02/11/2024 DISPOSITION: Home CONDITION: Stable REFINERY OPERATOR GAS PLANT(S): Infectious Disease, fretted instruments inspector superintendent oil well services's FOLLOW UP APPOINTMENT(S): Dr. Diana one-week, PCP Dr.Alaniz Mcdonougho104/14/23 at 8am superintendent oil well services's Dr. Reeves two weeks PROCEDURES: Abdominal Aortogram With Pelvic Runoff, Right Lower Extremity Digital Subtraction Arteriogram, Right Anterior Tibial Angioplasty With Drug Coated Balloon And Dionisio To Focal Anterior Tibial Dissection IMAGING (S) report attached to summary : Aorta with runoff CTA, foot MRI, arterial ultrasound MICROBIOLOGY: report attached to summary; intraoperative cultures ACTIVITY: Nonweightbearing to left foot HOME MEDICATIONS Continued Medications: Hydrochlorothiazide 12.5 Mg Tablet Lisinopril 40 Mg Tablet Metformin HCl 850 Mg Tablet Omeprazole 20 Mg Capsule. Sitagliptin Phosphate (Januvia) 25 Mg Tablet NEW MEDICATIONS Aspirin (Aspirin EC) 81 Mg Tablet. Prasugrel HCl 10 Mg Tablet CHANGES ON HOME MEDICATIONS none TEACHING: New medication adverse reactions. And side effects, nonweightbearing dressing changes with [facility] daily. Emergency instructions: The patient was instructed to present to the nearest Emergency Department or call 911 should their symptoms return or worsen. Home Medications: Reported Medications Omeprazole (Omeprazole) 20 Mg Capsule., 20 MG PO DAILY, CAP 02/01/24 Hydrochlorothiazide (Hydrochlorothiazide) 12.5 Mg Tablet, 1 TAB PO DAILY for 30 Days, #30 TAB 0 Refills 02/01/24 Lisinopril (Lisinopril) 40 Mg Tablet, 1 TAB PO DAILY for 30 Days, #30 TAB 0 Refills 02/01/24 Sitagliptin Phosphate (Januvia) 25 Mg Tablet, 1 TAB PO DAILY for 30 Days, #30 TAB 0 Refills 02/01/24 Metformin HCl (Metformin HCl) 850 Mg Tablet, 1 TAB PO BIDMEALS for 30 Days, #60 TAB 0 Refills 02/01/24 New Medications: Aspirin (Aspirin EC) 81 Mg Tablet.dr 81 MG PO AM for 90 Days, #90 TAB 3 Refills Prasugrel HCl (Prasugrel HCl) 10 Mg Tablet 10 MG PO DAILY, #90 TAB 3 Refills Continued Medications: Hydrochlorothiazide (Hydrochlorothiazide) 12.5 Mg Tablet 1 TAB PO DAILY for 30 Days, #30 TAB 0 Refills Lisinopril (Lisinopril) 40 Mg Tablet 1 TAB PO DAILY for 30 Days, #30 TAB 0 Refills Metformin HCl (Metformin HCl) 850 Mg Tablet 1 TAB PO BIDMEALS for 30 Days, #60 TAB 0 Refills Omeprazole (Omeprazole) 20 Mg Capsule.dr 20 MG PO DAILY, CAP Sitagliptin Phosphate (Januvia) 25 Mg Tablet 1 TAB PO DAILY for 30 Days, #30 TAB 0 Refills Time spent arranging discharge: 31-60 minutes ATTESTATION BY PHYSICIAN I have seen and examined the patient. I reviewed the documentation, medical decision making, and treatment plan as noted by the mid-level provider above. I agree with the findings and plan of care. Magali Cross MD, ELIZABETH NP Feb 11, 2024 10:56
[2024-02-11] MEDS: HONEY 1 APPL/ML TUBE TP ONE (12:23)
--- NOTE | 2024-02-11 12:47 | PN ---
SUBJECTIVE: The patient is a very pleasant 58-year-old diabetic, Latin-[place]tarian male who is followed up for fracture of the great toe on the right, osteomyelitis of the great toe on the right, peripheral vascular disease, status post revascularization procedure on the right, being followed by Infectious Disease, currently receiving IV Zosyn. Cultures have grown back Prevotella, Enterobacter cloacae and Enterococcus faecalis. He has had a PICC line in place. He is without any complaints of pain. He is awaiting outpatient authorization for infusion. REVIEW OF SYSTEMS: CONSTITUTIONAL: No chills, no fevers, no night sweats, no nausea, vomiting, no diarrhea. HEENT: No problems with eyes, ears, nose or throat. CARDIOVASCULAR: He is status post revascularization procedure on the right by the [facility]. GENITOURINARY: No dysuria. GASTROINTESTINAL: No dysphagia. ENDOCRINE: Diabetes. PSYCHIATRIC: Denies any depression. MUSCULOSKELETAL: Bunions and hammertoes. INTEGUMENT: Ingrown toenail surgical site to the right hallux along the medial border, healing well. He has ulcer to the plantar aspect of the right great toe, 5 x 5 x 1 mm, healing well. Palpable anterior tibial pulse, nonpalpable posterior tibial pulse on the right. ASSESSMENT: Ingrown toenail surgery of right hallux healing well, medial border and plantar ulcer, right great toe, healing well; osteomyelitis to the right great toe, fracture to the right great toe. The patient is receiving antibiotics per culture sensitivities, IV Zosyn. He has peripheral neuropathy, status post revascularization procedure, status post debridement of the right great toe, status post removal of the ingrown toenail. The patient with osteomyelitis and a fracture to the distal aspect of the right great toe. He ambulates with the use of a surgical shoe and a walker walking boot. PLAN: We will continue with the walking boot to ambulate with on the right. Continue with the IV Zosyn. Continue with Medihoney dressings and offloading measures. The patient may ambulate with the use of a CAM walking boot on that right side. We will follow the patient closely as an outpatient after discharge. TID: [id number] RECEIPT: [id number]
--- NOTE | 2024-02-11 15:23 | PN ---
INFECTIOUS DISEASE PROGRESS NOTE Date of Service: Feb 11, 2024 SUBJECTIVE: This is a 58-year-old male patient who was seen and examined at bedside in room 316. Patient is awake, alert and oriented x 3. Patient is status post peripheral angiogram with revascularization on 02/05/2024. Patient with polymicrobial infection to the right foot wound and osteomyelitis to the right 1st toe. Patient has an appointment with Dr. Jacobo tomorrow at a 0800 for clearance on outpatient IV antibiotics with [facility]. No fever, temperature is 98.1. Patient will be discharged home today. PHYSICAL EXAM EYES: Anicteric. Pupils equal and reactive. HENT: No oral thrush seen, moist Oral mucosa. NECK: Supple, no JVD or thyromegaly. LUNGS: Good air entry. No rales, no rhonchi. CARDIOVASCULAR: S1, S2 regular. No murmur heard. ABDOMEN: Soft, non tender, bowel sounds present, no organomegaly CENTRAL NERVOUS SYSTEM: Awake, alert, oriented x 3. SKIN: No rashes, no swelling. Right foot diabetic ulcer. LYMPHATICS: No peripheral lymphadenopathy. MUSCULOSKELETAL: No joint swelling, erythema or tenderness. EXTREMITIES: No cyanosis or clubbing. BACK: No deformity, no pressure ulcer. GENITOURINARY: No dysuria or hematuria. Vital Sign (Last 12 Hours) 02/11/24 02/11/24 02/11/24 04:00 08:00 08:23 Temp 99.0 98.1 Pulse 62 60 Resp 18 16 B/P (MAP) 125/67 136/76 Pulse Ox 96 97 98 O2 Delivery Room Air Room Air* O2 Flow Rate 0 FiO2 21 Intake & Output (last 24hrs) 02/10/24 02/10/24 02/11/24 15:00 23:00 07:00 Intake Total 220 ml 220 ml Balance 220 ml 220 ml LABS: Laboratory: Test 02/11/24 05:50 02/11/24 05:09 02/10/24 06:00 Range/Units White Blood Count 7.2 4.8-10.8 K/uL Red Blood Count 4.11 L 4.50-6.20 MIL/uL Hemoglobin 13.3 L 14.0-18.0 g/dL Hematocrit 38.4 L 42-54 % Mean Corpuscular Volume 93.4 79-99 fL Mean Corpuscular Hemoglobin 32.4 27.0-33.0 pg Mean Corpuscular Hemoglobin Concent 34.6 32.0-36.0 g/dL Red Cell Distribution Width 11.4 11.0-15.5 % Platelet Count 241 130-400 K/uL Mean Platelet Volume 9.9 7.5-10.5 fL Immature Granulocyte % (Auto) 0.8 0-1 % Neutrophils (%) (Auto) 66.2 40.0-77.0 % Lymphocytes (%) (Auto) 20.4 L 21.0-51.0 % Monocytes (%) (Auto) 7.3 3.0-13.0 % Eosinophils (%) (Auto) 4.5 0.0-8.0 % Basophils (%) (Auto) 0.8 0.0-5.0 % Neutrophils # (Auto) 4.7 1.8-7.7 K/uL Lymphocytes # (Auto) 1.5 1.0-4.8 K/uL Monocytes # (Auto) 0.5 0.1-1.0 K/uL Eosinophils # (Auto) 0.32 0.00-0.70 K/uL Basophils # (Auto) 0.06 0.00-0.20 K/uL Absolute Immature Granulocyte (auto 0.06 0-1 K/uL Nucleated Red Blood Cells 0.0 0.0-0.19 % Sodium Level 141 136-145 mmol/L Potassium Level 3.7 3.5-5.1 mmol/L Chloride Level 104 101-111 mmol/L Carbon Dioxide Level 30 21-32 mmol/L Blood Urea Nitrogen 20 H 7-18 mg/dL Creatinine 1.0 0.5-1.3 mg/dL Glomerular Filtration Rate Calc 86 >90 mL/min Random Glucose 178 H 70-105 mg/dL Total Calcium 8.6 8.5-10.1 mg/dL Whole Blood Glucose 168 H 70-110 MG/DL Phosphorus Level 4.2 2.5-4.9 mg/dL Magnesium Level 1.70 L 1.80-2.40 mg/dL ASSESSMENT: Right great toe osteomyelitis. Right foot Diabetic ulcer. Polymicrobial right foot Wound Infection. Right foot Cellulitis. PVD, status post peripheral angiogram with revascularization on 02/05/2024.. Hypertension. PLAN: Patient will be discharged to home today. Patient has an appointment with Dr. Jacobo tomorrow at 8:00 a.m. for clearance on outpatient IV antibiotics with [facility]. This case was reviewed and discussed with my supervising physician and the above assessment and plan was formulated and agreed upon. ATTESTATION BY PHYSICIAN I have seen and examined the patient. I reviewed the documentation, medical decision making, and treatment plan as noted by the mid-level provider above. I agree with the findings and plan of care. ESTEBAN NG MD, [facility] Feb 11, 2024 15:23
--- NOTE | 2024-02-11 20:13 | NUR ---
ME PLAN VISITED WITH PATIENT SEVERAL TIMES. SAT WITH PATIENT TO GET PCP CHANGED THROUGH INSURANCE TO DR. LUU. THEN WE CALLED [facility] SAID HE JUST NEEDS TO WALK IN AT 8 AM NO APPOINTMENT NEEDED. THEY WILL SEND AUTH FOR [facility]. LET DR. NG KNOW SAID OKAY TO ME FROM HIS STANDPOINT. TOLD PATIENT CM WILL GET PACKET FOR HIM WITH INFO WITH [facility] AND RELEASE OF INFORMATION FOR DR. LUU OFFICE SO THAT CM CAN SEND HIM PACKET FOR [facility]. CM MADE PACKET, INFO AND XUAN WENT TO ROOM. PATIENT ALREADY GONE. Addendum: 02/11/24 at 2033 by NEGAR ABEBE RN CM Amended: Links added.
== END 2024-02-11 13:18 | disposition home or self-care (01) | DRG 253 ==
LOC: EDH 17:52 → EDHIP 20:32 → 3CH 23:54
PROVIDERS: ADMIT Internal Medicine; ATTEND Internal Medicine
PROC: 047P341 Dilation of Right Anterior Tibial Artery with Drug-eluting Intraluminal Device, using Drug-Coated Balloon, Percutaneous Approach (ICD-10-PCS; principal; 2024-02-01)
PROC: B41FZZZ Fluoroscopy of Right Lower Extremity Arteries (ICD-10-PCS; 2024-02-01)
PROC: B4101ZZ Fluoroscopy of Abdominal Aorta using Low Osmolar Contrast (ICD-10-PCS; 2024-02-01)
PROC: 02HV33Z Insertion of Infusion Device into Superior Vena Cava, Percutaneous Approach (ICD-10-PCS; 2024-02-06)
DX: E11.51 Type 2 diabetes mellitus with diabetic peripheral angiopathy without gangrene (principal); L03.115 Cellulitis of right lower limb; L97.518 Non-pressure chronic ulcer of other part of right foot with other specified severity; M86.171 Other acute osteomyelitis, right ankle and foot; N17.9 Acute kidney failure, unspecified; E11.621 Type 2 diabetes mellitus with foot ulcer; E11.69 Type 2 diabetes mellitus with other specified complication; S92.401A Displaced unspecified fracture of right great toe, initial encounter for closed fracture; E86.0 Dehydration; E11.65 Type 2 diabetes mellitus with hyperglycemia; I10 Essential (primary) hypertension; E11.42 Type 2 diabetes mellitus with diabetic polyneuropathy; L60.0 Ingrowing nail; B35.1 Tinea unguium; L60.2 Onychogryphosis; K21.9 Gastro-esophageal reflux disease without esophagitis; E66.9 Obesity, unspecified; B95.2 Enterococcus as the cause of diseases classified elsewhere; X58.XXXA Exposure to other specified factors, initial encounter; B96.89 Other specified bacterial agents as the cause of diseases classified elsewhere; Z83.3 Family history of diabetes mellitus; Z79.899 Other long term (current) drug therapy; Z79.84 Long term (current) use of oral hypoglycemic drugs; Y93.89 Activity, other specified; Y92.89 Other specified places as the place of occurrence of the external cause; Y99.8 Other external cause status; Z68.29 Body mass index [BMI] 29.0-29.9, adult
CPT/HCPCS: 36415; 36569; 37230; 71045; 73630; 73718; 75635; 75716; 80048; 80053; 80202; 81001; 82306; 82607; 82948; 83036; 83605; 83735; 84100; 84145; 84443; 85025; 85027; 85347; 85610; 85730; 87040; 87070; 87076; 87086; 87186; 90715; 93925; 96365; 96368; 96375; 99156; 99157; 99285; C1760; C1769; C1893; C1894; G0378; J0692; J1644; J1650; J1815; J2250; J2270; J2405; J2543; J3010; J3370; J3475; J3490; J7030; Q9967; 3370; C1725; C1874; C1887; C2623